=== PATIENT | female | born 1985 | race Caucasian/White ===

== ENCOUNTER 2020-10-12 09:22 | Emergency (ER) | payer OTHER, SELFPAY ==
--- NOTE | 2020-10-12 09:30 | ED.ABDPAIN ---
HPI - Abdominal Pain General Chief Complaint: Urogenital-Female <Isael Deras NP - Last Filed: 10/12/20 12:28> Stated Complaint: ABD PAIN <Isael Deras NP - Last Filed: 10/12/20 12:28> Time Seen by Provider: 10/12/20 09:27 <Isael Deras NP - Last Filed: 10/12/20 12:28> Source: patient <Isael Deras NP - Last Filed: 10/12/20 12:28> Mode of arrival: ambulatory <Isael Deras NP - Last Filed: 10/12/20 12:28> Limitations: no limitations <Isael Deras NP - Last Filed: 10/12/20 12:28> History of Present Illness HPI narrative: 34-year-old female with history of asthma who is G3 P to a 1 status post 2 spontaneous vaginal deliveries and status post tubal ligation otherwise denies any other significant medical problem not currently taking any medications presenting ambulatory via triage with complaint of ?ovary pain? for the past 2 weeks. States as been present on and off and being described as sharp and sometimes cramping like in the right-sided pelvic and sometimes the left lower pelvic region. She denies any irregular bleeding, dysuria, vaginal discharge. No rash or lesion. Denies any concern for STI. Does report that pain sometimes radiates to the right upper quadrant and right flank area. There is no associated nausea vomiting or diarrhea. No recent travel or sick contacts. No URI symptoms. <Isael Deras NP - Last Filed: 10/12/20 12:28> MD elicited complaint: abdominal pain <Isael Deras NP - Last Filed: 10/12/20 12:28> Pertinent past history: none <Isael Deras NP - Last Filed: 10/12/20 12:28> Onset (ago): week(s) <Isael Deras NP - Last Filed: 10/12/20 12:28> Pain Consistency: intermittent <Isael Deras NP - Last Filed: 10/12/20 12:28> Location: pelvis <Isael Deras NP - Last Filed: 10/12/20 12:28> Severity: mild <Isael Deras NP - Last Filed: 10/12/20 12:28> Quality: cramping and aching <Isael Deras NP - Last Filed: 10/12/20 12:28> Radiation: suprapubic and R flank <Isael Deras NP - Last Filed: 10/12/20 12:28> Migration to: R flank <Isael Deras NP - Last Filed: 10/12/20 12:28> Exacerbating factors: nothing <Isael Deras NP - Last Filed: 10/12/20 12:28> Relieving factors: nothing <Isael Deras NP - Last Filed: 10/12/20 12:28> Associated symptoms: denies other symptoms <Isael Deras NP - Last Filed: 10/12/20 12:28> Treatments prior to arrival: other (Has not tried any OTC) <Isael Deras NP - Last Filed: 10/12/20 12:28> Related Data Home Medications: Previous Rx's Medication Instructions Recorded naproxen [Naprosyn] 500 mg PO BID PRN #14 tab 10/12/20 <Isael Deras NP - Last Filed: 10/12/20 12:28> Allergies/Adverse Reactions: Allergies Allergy/AdvReac Type Severity Reaction Status Date / Time No Known Allergies Allergy Unverified 08/12/20 15:43 <Isael Deras NP - Last Filed: 10/12/20 12:28> Review of Systems Review of Systems Constitutional: No Weight loss, No Fever, No Chills, No Night Sweats, No Fatigue, No Malaise ENT/Mouth: No Hearing loss, No Ear Pain, No Nasal Congestion, No Sinus Pain, No Hoarseness, No sore throat, No Rhinorrhea, No Swallowing Difficulty Eyes: No Eye Pain, No Swelling, No Redness, No Foreign Body, No Discharge, No Vision Changes Cardiovascular: No Chest Pain, No SOB, No Dyspnea on Exertion, No Orthopnea, No Edema, No Palpitations Respiratory: No Cough, No Sputum, No Wheezing, No Dyspnea Gastrointestinal: No Nausea, No Vomiting, No Diarrhea, No Constipation, +pelvic pain as note din HPI , No Hematochezia, No Melena Genitourinary: no irregular bleeding, No Dysuria, No Urinary Frequency, No Hematuria, No Urinary Incontinence, No Urgency, No Flank Pain, No Urinary Flow Changes, No Hesitancy Musculoskeletal: No joint pain, No Myalgias, No Joint Swelling Skin: No Skin Lesions, No rash Neuro: No Weakness, No Numbness, No Paresthesias, No Loss of Consciousness, No Dizziness, No Headache Psych: No Social Issues Heme/Lymph: No Bruising, No Bleeding,No Lymphadenopathy Endocrine: No Polyuria, No Polydipsia, No Temperature Intolerance <Isael Deras NP - Last Filed: 10/12/20 12:28> Yes all other systems are reviewed and are negative <Isael Deras NP - Last Filed: 10/12/20 12:28> Physical Exam Vital Signs: Vital Signs: Last Vital Signs Temp 98 F 10/12/20 12:00 Pulse 79 10/12/20 12:00 Resp 18 10/12/20 12:00 BP 140/81 H 10/12/20 12:00 Pulse Ox 96 10/12/20 12:00 Body Mass Index 28.5 Reviewed <Isael Deras NP - Last Filed: 10/12/20 12:28> Vital Signs: Last Vital Signs Temp 98 F 10/12/20 12:00 Pulse 79 10/12/20 12:00 Resp 18 10/12/20 12:00 BP 140/81 H 10/12/20 12:00 Pulse Ox 96 10/12/20 12:00 Body Mass Index 28.5 <Xander Noland MD - Last Filed: 10/18/20 15:43> Const: General: cooperative and healthy appearing; No acute distress or intoxicated appearing <Isael Deras NP - Last Filed: 10/12/20 12:28> Nutritional Appearance: average body habitus <Isael Deras NP - Last Filed: 10/12/20 12:28> Orientation/consciousness: patient oriented x3 <Isael Deras NP - Last Filed: 10/12/20 12:28> HENMT: Head: Yes normal to inspection <Isael Deras NP - Last Filed: 10/12/20 12:28> Ears: hearing grossly normal bilaterally <sIael Deras NP - Last Filed: 10/12/20 12:28> Eyes: General: appearance normal, both eyes and all related structures <Isael Deras, TUBER MACHINE OPERATOR HELPER - Last Filed: 10/12/20 12:28> Visual Mantilla: normal visual mantilla by confrontation <Isael Deras TUBER MACHINE OPERATOR HELPER - Last Filed: 10/12/20 12:28> Chest: Chest palpation & inspection: normal inspection of the chest <Isael Deras TUBER MACHINE OPERATOR HELPER - Last Filed: 10/12/20 12:28> Resp: Effort & Inspection: normal respiratory effort <Isael Augusta TUBER MACHINE OPERATOR HELPER - Last Filed: 10/12/20 12:28> Cardio: Jugular venous distension: no JVD <Isael Deras TUBER MACHINE OPERATOR HELPER - Last Filed: 10/12/20 12:28> GI: Other: slight ttp over the suprapubic area, no rebound, no peritonitis, no cva ttp. <Isael Augusta TUBER MACHINE OPERATOR HELPER - Last Filed: 10/12/20 12:28> Inspection: Yes normal to inspection <Isael Augusta TUBER MACHINE OPERATOR HELPER - Last Filed: 10/12/20 12:28> Percussion: Yes normal to percussion <Isael Augusta TUBER MACHINE OPERATOR HELPER - Last Filed: 10/12/20 12:28> Auscultation: normal bowel sounds <Isael Deras TUBER MACHINE OPERATOR HELPER - Last Filed: 10/12/20 12:28> : Other: Declined pelvic exam. States no abnormality in voids, discharge, red lesion, concern for STI. <Isael Deras TUBER MACHINE OPERATOR HELPER - Last Filed: 10/12/20 12:28> General: Yes no CVA tenderness <Isael Augusta TUBER MACHINE OPERATOR HELPER - Last Filed: 10/12/20 12:28> Back/Spine/Pelvis: Back: no CVA tenderness <Isael Augusta TUBER MACHINE OPERATOR HELPER - Last Filed: 10/12/20 12:28> Skin: General skin exam: no rashes or lesions noted <Isael Augusta TUBER MACHINE OPERATOR HELPER - Last Filed: 10/12/20 12:28> Neuro: General: patient oriented x3 <Isael MathisSHANIQUE armando - Last Filed: 10/12/20 12:28> Extrem: General: Yes normal to inspection <Isael Augusta TUBER MACHINE OPERATOR HELPER - Last Filed: 10/12/20 12:28> Course Course Course Narrative: I have discussed the case and management with the FANI <Xander Noland MD - Last Filed: 10/18/20 15:43> Reevaluation(s) Reevaluation #1: Call from rad Dept with US prelim from .. Right ovary though appears normal there is no vascular flow detected on ultrasound. Page placed to learning and development consultant services. Patient resting comfortably. <Isael Deras NP - Last Filed: 10/12/20 12:28> Reevaluation #2: [address] Hammond Images reviewed less likely pain gynecological etiology to explore other causes her pain i.e. abd. Aware CT abd / pelvic ordered Pt currently resting comfortably in NAD> on her cell phone. Findings / plan reviewed <Isael Deras NP - Last Filed: 10/12/20 12:28> Reevaluation #3: CT of the abdomen pelvic shows no acute Findings of the abdomen or pelvis. No inflammatory change. Prominent appearance of the pelvic veins. No obstruction. Appendix normal. No free air. No colonic wall thickening. Case again discussed with learning and development consultant Dr. Hammond, pt at this time nop to pain, resting comfortably on cell phone. rec not c/w torsion to d/c with clear precautions and f/u for follow us. Findings reviewed with pt in detail, she verbalizes understanding and comfortable with plan. Her repeat abdominal exam is benign. Tender palpation or peritonitis. <Isael Deras NP - Last Filed: 10/12/20 12:28> Consultations Consultation #1: [facility] <Isael Deras NP - Last Filed: 10/12/20 12:28> Consultation #2: OBGYN <Isael eDras NP - Last Filed: 10/12/20 12:28> MDM - Abdominal Pain Differential Diagnosis Differential diagnosis: Likely abdominal pain, acute appendicitis, calculus of kidney, ovarian cyst and renal colic; Unlikely aortic dissection, bowel perforation, constipation, diverticulitis, endometriosis, gastroenteritis, gastritis, mesenteric ischemia, pancreatitis, peptic ulcer disease and small bowel obstruction <Isael Deras NP - Last Filed: 10/12/20 12:28> Medical Records Attestation: I reviewed the patient's medical records. <Isael Deras NP - Last Filed: 10/12/20 12:28> Lab Data Attestation: I reviewed the patient's lab results. <Isael Deras NP - Last Filed: 10/12/20 12:28> Result diagrams: : 10/12/20 09:48 10/12/20 09:48 <Isael Deras NP - Last Filed: 10/12/20 12:28> Labs: Lab Results 10/12/20 10/12/20 10/12/20 Range/Units 09:45 09:48 09:48 WBC 7.7 (4.8-10.8) X10*3/uL RBC 4.43 (4.20-5.50) X10*6/uL Hgb 14.0 (12.0-16.0) g/dl Hct 42.8 (37-47) % MCV 96.6 (80-98) fL MCH 31.6 (27.0-33.0) pg MCHC 32.7 (31.0-35.0) g/dl RDW 12.9 (11.0-16.0) % Plt Count 189 (160-400) X10*3/uL MPV 11.2 (9.4-12.3) fL Immature Gran % (Auto) 0.3 (0.0-0.4) % Neut % (Auto) 62.0 (45-73) % Lymph % (Auto) 29.4 (20-40) % [place] % (Auto) 6.5 (2-11) % Eos % (Auto) 1.4 (0-4) % Baso % (Auto) 0.4 (0-2) % Lymph # (Auto) 2.3 (1.2-4.9) X10*3/uL [place] # (Auto) 0.5 (0.1-1.2) X10*3/uL Eos # (Auto) 0.1 (0.0-0.4) X10*3/uL Baso # (Auto) 0.0 (0.0-0.2) X10*3/uL Abs Immat Gran (auto) 0.02 (0.00-0.03) X10*3/uL Absolute Neuts (auto) 4.8 (2.0-8.3) X10*3/uL Absolute Nucleated RBC 0.000 (0.0-0.012) X10*3/uL Nucleated RBC % (auto) 0.0 (0.0-0.2) /100WBC Sodium 139 (135-145) mmol/L Potassium 4.4 (3.3-5.1) mmol/l Chloride 106 (96-108) mmol/L Carbon Dioxide 27 (22-29) mmol/L Anion Gap 10 L (12-20) BUN 12 (9-16) mg/dL Creatinine 0.85 (0.5-1.4) mg/dL Estim Creat Clear Calc 83.3 Estimated GFR > 60 Random Glucose 95 (60-115) mg/dL Calcium 8.9 (8.4-10.2) mg/dL Total Bilirubin 0.5 (0.0-1.0) mg/dL AST 19 (5-31) U/L ALT 16 (0-31) U/L Alkaline Phosphatase 47 (39-117) U/L Total Protein 7.4 (6.5-8.0) g/dL Albumin 4.4 (3.5-5.0) g/dL Urine Color YELLOW Urine Appearance HAZY Urine pH 7.0 (5.0-8.0) Ur Specific [place] 1.020 (1.005-1.025) Urine Protein NEG (NEG-TRACE) MG/DL Urine Glucose (UA) NEG (NEG) MG/DL Urine Ketones NEG (NEG) MG/DL Urine Blood NEG (NEG) Urine Nitrite NEG (NEG) Ur Leukocyte Esterase NEG (NEG) Urine RBC 0 (0) /HPF Urine WBC 0 (0-4) /HPF Ur Squamous Epith Cells 3+ /LPF Urine Bacteria 1+ /LPF Urine Mucus 1+ /LPF Urine Test NEGATIVE (NEGATIVE) <Isael Deras NP - Last Filed: 10/12/20 12:28> Lab Results 10/12/20 10/12/20 10/12/20 Range/Units 09:45 09:48 09:48 WBC 7.7 (4.8-10.8) X10*3/uL RBC 4.43 (4.20-5.50) X10*6/uL Hgb 14.0 (12.0-16.0) g/dl Hct 42.8 (37-47) % MCV 96.6 (80-98) fL MCH 31.6 (27.0-33.0) pg MCHC 32.7 (31.0-35.0) g/dl RDW 12.9 (11.0-16.0) % Plt Count 189 (160-400) X10*3/uL MPV 11.2 (9.4-12.3) fL Immature Gran % (Auto) 0.3 (0.0-0.4) % Neut % (Auto) 62.0 (45-73) % Lymph % (Auto) 29.4 (20-40) % [place] % (Auto) 6.5 (2-11) % Eos % (Auto) 1.4 (0-4) % Baso % (Auto) 0.4 (0-2) % Lymph # (Auto) 2.3 (1.2-4.9) X10*3/uL [place] # (Auto) 0.5 (0.1-1.2) X10*3/uL Eos # (Auto) 0.1 (0.0-0.4) X10*3/uL Baso # (Auto) 0.0 (0.0-0.2) X10*3/uL Abs Immat Gran (auto) 0.02 (0.00-0.03) X10*3/uL Absolute Neuts (auto) 4.8 (2.0-8.3) X10*3/uL Absolute Nucleated RBC 0.000 (0.0-0.012) X10*3/uL Nucleated RBC % (auto) 0.0 (0.0-0.2) /100WBC Sodium 139 (135-145) mmol/L Potassium 4.4 (3.3-5.1) mmol/l Chloride 106 (96-108) mmol/L Carbon Dioxide 27 (22-29) mmol/L Anion Gap 10 L (12-20) BUN 12 (9-16) mg/dL Creatinine 0.85 (0.5-1.4) mg/dL Estim Creat Clear Calc 83.3 Estimated GFR > 60 Random Glucose 95 (60-115) mg/dL Calcium 8.9 (8.4-10.2) mg/dL Total Bilirubin 0.5 (0.0-1.0) mg/dL AST 19 (5-31) U/L ALT 16 (0-31) U/L Alkaline Phosphatase 47 (39-117) U/L Total Protein 7.4 (6.5-8.0) g/dL Albumin 4.4 (3.5-5.0) g/dL Urine Color YELLOW Urine Appearance HAZY Urine pH 7.0 (5.0-8.0) Ur Specific [place] 1.020 (1.005-1.025) Urine Protein NEG (NEG-TRACE) MG/DL Urine Glucose (UA) NEG (NEG) MG/DL Urine Ketones NEG (NEG) MG/DL Urine Blood NEG (NEG) Urine Nitrite NEG (NEG) Ur Leukocyte Esterase NEG (NEG) Urine RBC 0 (0) /HPF Urine WBC 0 (0-4) /HPF Ur Squamous Epith Cells 3+ /LPF Urine Bacteria 1+ /LPF Urine Mucus 1+ /LPF Urine Test NEGATIVE (NEGATIVE) <Xander Noland MD - Last Filed: 10/18/20 15:43> Discharge Plan Discharge Clinical Impression: Lower abdominal pain <Isael Deras NP - Last Filed: 10/12/20 12:28> Patient Disposition: Home, Self-Care <Isael Deras NP - Last Filed: 10/12/20 12:28> Instructions: Acute Abdominal Pain (ED) <Isael Deras NP - Last Filed: 10/12/20 12:28> Additional Instructions: Was overall stable Urine test did not show any evidence of infection or You have history of tubal ligation my concern for is low The ultrasound of the pelvis results as provided to you and discuss with you show some variation in the blood flow to the right ovary which is sometimes seen and an ovary that is torsed (twisted on his self) although I do not suspect this given that you have no pain at this time and I would see other signs of this. Although this is certainly a possibility I have discussed this with our learning and development consultant doctor Dr. Hammond - who recommends a follow-up ultrasound in 1 week. Additionally you had a CT scan of the abdomen pelvis done with IV contrast does not show any signs of infection/obstruction or any problems with the appendix. Please return if you have any concerns or worsening pain, back pain, vaginal bleeding, fever, nausea vomiting or diarrhea. Otherwise follow-up as instructed Thank you <Isael Deras NP - Last Filed: 10/12/20 12:28> Prescriptions: New naproxen [Naprosyn] 500 mg tablet 500 mg PO BID PRN (Reason: pain) Qty: 14 RF: 0 <Isael Deras NP - Last Filed: 10/12/20 12:28> Referrals: Teodora Hammond MD [Physician] - 1 week <Isael Deras NP - Last Filed: 10/12/20 12:28> Interventions: ED Discharge Assessment Last Done: 10/12/20 12:29 <Isael Deras NP - Last Filed: 10/12/20 12:28> Discharge Date/Time: 10/12/20 12:29 <Isael Deras NP - Last Filed: 10/12/20 12:28> PMF Past Medical History Medical History: Medical History (Updated 10/13/20 @ 00:00 by Annelise Valencia) Asthma No known health problems <Isael Deras NP - Last Filed: 10/12/20 12:28> Surgical History: Surgical History (Updated 10/12/20 @ 09:42 by Isael Deras NP) H/O tubal ligation <Isael Deras NP - Last Filed: 10/12/20 12:28> Social History Social History: Social History Advance Directives: No Advance Directives Information Provided: Yes <Isael Deras NP - Last Filed: 10/12/20 12:28>
--- NOTE | 2020-10-12 09:32 | US_ITS ---
EXAMINATION: ULTRASOUND OF THE PELVIS CLINICAL INFORMATION: Pelvic pain, right side greater than left side. COMPARISON: CT 01/11/2018. TECHNIQUE: Transabdominal and transvaginal pelvic ultrasound. Doppler evaluation with spectral analysis was performed. A transvaginal study was performed in addition to the transabdominal study which did not yield an adequate examination of the uterus and ovaries due to superimposed distended gas-filled loops of bowel. FINDINGS: The uterus is normal in size and appearance, measuring 8.4 x 4.6 x 5.3 cm longitudinally, anteroposteriorly and transversely. The endometrial stripe thickness is normal, measuring 0.9 cm in thickness. No focal myometrial mass is seen. Nabothian cysts are seen at the cervix. The ovaries bilaterally are visualized and appear normal, with the right ovary measuring 3.2 x 2.1 x 1.4 cm and the left ovary measuring 2.6 x 2.1 x 1.9 cm. There are normal arterial and venous spectral waveforms of the left ovary. There is no Doppler flow seen involving the right ovary despite multiple attempts. No adnexal mass or free fluid collection seen. US/US pelvic ovarian doppler IMPRESSION: There is no Doppler flow seen involving the right ovary, despite multiple attempts at obtaining. The ovary itself has a normal appearance. As there is no Doppler flow seen, ovarian torsion must be considered. This critical result was discussed with Isael Deras NP by telephone at 10/12/2020 10:31 AM and it was ascertained that the content and urgency of the report was understood at the time of direct communication.
[2020-10-12 09:34] VITALS: BP 114/71; PULSE 59; RESP 20; TEMP 36.8; O2SAT 100; BMI 28.5
[2020-10-12 09:57] LABS: MANUAL DIFF FLAG NO
[2020-10-12 10:00] VITALS: BP 120/70; PULSE 62; RESP 18; TEMP 36.8; O2SAT 100
[2020-10-12 10:00] LABS: Glucose Urine UA NEG (NEG); Leukocyte Esterase Urine NEG (NEG); Nitrite Urine NEG (NEG); Urine Blood NEG (NEG); Urine Ketones NEG (NEG); Urine Protein NEG (NEG-TRACE)
[2020-10-12 10:02] LABS: Appearance Urine HAZY; Color Urine YELLOW
[2020-10-12 10:03] LABS: UPreg QC Valid YES; Urine Pregnancy NEGATIVE (NEGATIVE)
[2020-10-12 10:07] LABS: Basophils Percent Auto 0.4 % (0-2); Eosinophils Absolute Auto 0.1 X10*3/uL (0.0-0.4); Eosinophils Percent Auto 1.4 % (0-4); Hematocrit 42.8 % (37-47); Imm Gran Abs Auto 0.02 X10*3/uL (0.00-0.03); Imm Gran Pct Auto 0.3 % (0.0-0.4); Lymphocytes Absolute Auto 2.3 X10*3/uL (1.2-4.9); Lymphocytes Percent Auto 29.4 % (20-40); Mean Corpuscular HGB Conc 32.7 g/dl (31.0-35.0); Mean Corpuscular Hemoglobin 31.6 pg (27.0-33.0); Mean Corpuscular Volume 96.6 fL (80-98); Mean Platelet Volume 11.2 fL (9.4-12.3); Monocytes Absolute Auto 0.5 X10*3/uL (0.1-1.2); Monocytes Percent Auto 6.5 % (2-11); Neutrophils Absolute Auto 4.8 X10*3/uL (2.0-8.3); Platelet Count 189 X10*3/uL (160-400); Red Blood Count 4.43 X10*6/uL (4.20-5.50); Red Cell Distribution Width 12.9 % (11.0-16.0); White Blood Count 7.7 X10*3/uL (4.8-10.8)
[2020-10-12 10:14] LABS: RBC Urine 0 /HPF (0); WBC Urine 0 /HPF (0-4)
[2020-10-12 10:15] LABS: Bacteria Urine 1+ /LPF; Mucus Urine 1+ /LPF; Squamous Epithelial Cell Urine 3+ /LPF
--- NOTE | 2020-10-12 10:15 | CT_ITS ---
EXAMINATION: CT ABDOMEN AND PELVIS WITH CONTRAST CLINICAL INFORMATION: Right lower abdominal pain. COMPARISON: 01/11/2018 TECHNIQUE: Multidetector volumetric images were obtained from the superior aspect of the liver through the pubic symphysis following administration 85 mL of Omnipaque 350 intravenous contrast. Sagittal and coronal reformatted images were obtained on the technologist's workstation. Oral contrast: No This CT examination was performed using dose optimization techniques as appropriate, variously including the following: *Automated exposure control *Adjustment of mA and/or kV according to patient size (this includes techniques or standardized protocols for targeted exams where dose is matched to indication/reason for exam; i.e. extremities or head) *Use of iterative reconstruction technique DLP: 474 mGy-cm FINDINGS: LUNG BASES: The visualized lung bases are unremarkable. LIVER, GALLBLADDER, AND BILIARY TREE: The liver is normal in size, shape, and attenuation. No focal hepatic lesion or biliary ductal dilatation is present. The gallbladder is unremarkable with no evidence of radiopaque gallstones, gallbladder wall thickening, or obvious pericholecystic inflammatory changes. PANCREAS: Unremarkable. SPLEEN: Unremarkable. ADRENAL GLANDS: Unremarkable. KIDNEYS AND URETERS: The kidneys are normal in size, shape, and attenuation. No hydronephrosis, hydroureter, or calculi seen. No perinephric stranding. BLADDER: Unremarkable. GASTROINTESTINAL TRACT: The stomach is unremarkable. Normal caliber small bowel. There is no obstruction. No colonic wall thickening or inflammatory change. Normal appendix. No free air or free fluid. ABDOMINAL WALL: No significant hernia is appreciated. LYMPH NODES: Normal. VASCULAR: Normal caliber aorta. There is prominence of the pelvic veins bilaterally noted. PELVIC VISCERA: The uterus and adnexa are unremarkable. OSSEOUS STRUCTURES: No acute or suspicious osseous abnormality. CT/CT abdomen pelvis w con IMPRESSION: No acute findings of the abdomen or pelvis. No inflammatory changes. Prominent appearance of the pelvic veins. Correlate for pelvic congestion.
[2020-10-12 10:35] LABS: Alanine Aminotransferase 16 U/L (0-31); Albumin Level 4.4 g/dL (3.5-5.0); Alkaline Phosphatase 47 U/L (39-117); Anion Gap 10 (12-20); Aspartate Amino Transferase 19 U/L (5-31); Bilirubin Total 0.5 mg/dL (0.0-1.0); Blood Urea Nitrogen 12 mg/dL (9-16); Calcium 8.9 mg/dL (8.4-10.2); Carbon Dioxide 27 mmol/L (22-29); Chloride 106 mmol/L (96-108); Creatinine Clr Calc Pharmacy 83.3; Estimated Glomerular Filt Rate > 60; Glucose Random 95 mg/dL (60-115); Potassium 4.4 mmol/l (3.3-5.1); Sodium 139 mmol/L (135-145); Total Protein 7.4 g/dL (6.5-8.0)
[2020-10-12] MEDS: 0.9 % Sodium Chloride 1,000 ML 1000 ML IV (10:36)
--- NOTE | 2020-10-12 11:06 | PC.NURSE ---
returned from ultrasound, waiting for ct scan
[2020-10-12 12:00] VITALS: BP 140/81; PULSE 79; RESP 18; TEMP 36.6; O2SAT 96
== END 2020-10-12 12:29 | disposition home or self-care (01) ==
PROVIDERS: Nurse Practitioner Primary Care; Emergency Provider Emergency Medicine
DX: R10.2 Pelvic and perineal pain (principal); R10.11 Right upper quadrant pain; N89.8 Other specified noninflammatory disorders of vagina
CPT/HCPCS: 36415; 74177; 76830; 76856; 80053; 81001; 81025; 85025; 87086; 93975; 96360; 99284

== ENCOUNTER 2020-11-09 14:42 | Outpatient (REF) | payer OTHER, SELFPAY | END 2020-11-09 14:43 | disposition home or self-care (01) | LOC: HO.LAB 14:42 | PROVIDERS: Visit Provider Internal Medicine | DX: Z20.828 Contact with and (suspected) exposure to other viral communicable diseases (principal) | CPT/HCPCS: C9803; U0003 ==

== ENCOUNTER 2020-11-15 07:37 | Outpatient (REF) | payer OTHER, SELFPAY | END 2020-11-15 07:38 | disposition home or self-care (01) | LOC: HO.LAB 07:37 | PROVIDERS: Visit Provider Internal Medicine | DX: Z20.828 Contact with and (suspected) exposure to other viral communicable diseases (principal) | CPT/HCPCS: C9803; U0003 ==

== ENCOUNTER 2020-11-22 09:34 | Outpatient (REF) | payer OTHER, SELFPAY | END 2020-11-22 09:35 | disposition home or self-care (01) | LOC: HO.LAB 09:34 | PROVIDERS: Visit Provider Internal Medicine | DX: Z20.828 Contact with and (suspected) exposure to other viral communicable diseases (principal) | CPT/HCPCS: C9803; U0003 ==

== ENCOUNTER 2020-12-07 11:53 | Outpatient (REF) | payer OTHER, SELFPAY | END 2020-12-07 11:54 | disposition home or self-care (01) | LOC: HO.LAB 11:53 | PROVIDERS: Visit Provider Internal Medicine | DX: Z20.822 Contact with and (suspected) exposure to COVID-19 (principal) | CPT/HCPCS: 36415; C9803; U0003 ==

== ENCOUNTER 2021-01-24 10:45 | Emergency (ER) | payer OTHER, SELFPAY ==
--- NOTE | ~2021-01-24 | XR_ITS ---
EXAMINATION: XR CHEST CLINICAL INFORMATION: Cough COMPARISON: Previous chest x-ray September 2019 TECHNIQUE: Frontal view of the chest was obtained. FINDINGS: No significant abnormality is noted involving the heart, lungs, mediastinum, bony thorax or soft tissues. XR/XR chest 1V IMPRESSION: Unremarkable examination.
[2021-01-24 11:45] VITALS: BP 118/63; PULSE 97; RESP 18; TEMP 36.8; O2SAT 98; BMI 28.3
--- NOTE | 2021-01-24 12:01 | ED.GENADULT ---
HPI - General Adult General Chief complaint: General Medical Stated complaint: vomiting,dizzy,cough Time Seen by Provider: 01/24/21 11:58 History of Present Illness HPI narrative: Patient complains of vomiting and nausea for 2 days as well as a mild cough which is been going on for 2 weeks, no shortness of breath no abdominal pain no diarrhea no burning with urination no fever no chills The patient is a daily marijuana smoker but has never had an issue with vomiting Related Data Previous Rx's Medication Instructions Recorded naproxen [Naprosyn] 500 mg PO BID PRN #14 tab 10/12/20 ondansetron HCl [Zofran] 4 mg PO Q6H PRN #10 tab 01/24/21 Allergies Allergy/AdvReac Type Severity Reaction Status Date / Time No Known Allergies Allergy Verified 01/24/21 11:44 Review of Systems Review of Systems: Positive for vomiting and a cough Negatives are there are no fever no chills no dizziness no weakness no headache no sore throat no neck pain no chest pain no shortness of breath no sputum no loss of taste or smell, no abdominal pain no diarrhea no burning with urination or urinary frequency no rash no numbness or weakness PMFSH Past Medical History Source: nursing notes reviewed Medical History (Updated 01/24/21 @ 17:07 by SANCHEZ Naidu) Asthma No known health problems Surgical History H/O tubal ligation Social History Social History Advance Directives: No Advance Directives Information Provided: No Physical Exam Vital Signs: Vital Signs: Last Vital Signs Temp 98.8 F 01/24/21 15:20 Pulse 96 01/24/21 15:20 Resp 18 01/24/21 15:20 BP 126/86 01/24/21 15:20 Pulse Ox 98 01/24/21 15:20 Body Mass Index 28.3 General appearance no acute distress, relaxed and cooperative A&O x3 The pharynx is clear with moist mucous membranes Neck is supple The chest is clear to auscultation bilaterally with full symmetric equal breath sounds Heart rate and rhythm regular no murmur Abdomen soft nontender Extremities no edema no rash Neuro no focal deficit Course Course Course Narrative: COVID testing was negative, was negative Patient did not respond to oral Zofran, so patient was hydrated and given Reglan with good result and patient was tolerating p.o., repeat abdominal exam is nontender and p.o. trial was successful with no vomiting and patient was discharged She was counseled that there is a possibility that if this recurs it may be from hyperemesis from marijuana Medical Decision Making Lab Data Lab results reviewed: Yes I reviewed the patient's lab results. Result diagrams: 01/24/21 15:01 01/24/21 15:01 Labs: Lab Results 01/24/21 01/24/21 01/24/21 Range/Units 13:03 14:29 14:29 WBC (4.8-10.8) X10*3/uL RBC (4.20-5.50) X10*6/uL Hgb (12.0-16.0) g/dl Hct (37-47) % MCV (80-98) fL MCH (27.0-33.0) pg MCHC (31.0-35.0) g/dl RDW (11.0-16.0) % Plt Count (160-400) X10*3/uL MPV (9.4-12.3) fL Immature Gran % (Auto) (0.0-0.4) % Neut % (Auto) (45-73) % Lymph % (Auto) (20-40) % [place] % (Auto) (2-11) % Eos % (Auto) (0-4) % Baso % (Auto) (0-2) % Lymph # (Auto) (1.2-4.9) X10*3/uL [place] # (Auto) (0.1-1.2) X10*3/uL Eos # (Auto) (0.0-0.4) X10*3/uL Baso # (Auto) (0.0-0.2) X10*3/uL Abs Immat Gran (auto) (0.00-0.03) X10*3/uL Absolute Neuts (auto) (2.0-8.3) X10*3/uL Absolute Nucleated RBC (0.0-0.012) X10*3/uL Nucleated RBC % (auto) (0.0-0.2) /100WBC Sodium (135-145) mmol/L Potassium (3.3-5.1) mmol/L Chloride (96-108) mmol/L Carbon Dioxide (22-29) mmol/L Anion Gap (12-20) BUN (9-16) mg/dL Creatinine (0.5-1.4) mg/dL Estim Creat Clear Calc Estimated GFR Random Glucose (60-115) mg/dL Calcium (8.4-10.2) mg/dL Total Bilirubin (0.0-1.0) mg/dL Direct Bilirubin (0.0-0.5) mg/dL AST (5-31) U/L ALT (0-31) U/L Alkaline Phosphatase (39-117) U/L Total Protein (6.5-8.0) g/dL Albumin (3.5-5.0) g/dL Urine Color YELLOW Urine Appearance HAZY Urine pH 8.0 (5.0-8.0) Ur Specific [place] 1.015 (1.005-1.025) Urine Protein NEG (NEG-TRACE) MG/DL Urine Glucose (UA) NEG (NEG) MG/DL Urine Ketones NEG (NEG) MG/DL Urine Blood NEG (NEG) Urine Nitrite NEG (NEG) Ur Leukocyte Esterase NEG (NEG) Urine Test NEGATIVE (NEGATIVE) COVID-19 (KATELYN) Negative (Negative) COVID-19 Clin Com See Note 01/24/21 01/24/21 Range/Units 15:01 15:01 WBC 12.7 H (4.8-10.8) X10*3/uL RBC 4.32 (4.20-5.50) X10*6/uL Hgb 13.7 (12.0-16.0) g/dl Hct 40.9 (37-47) % MCV 94.7 (80-98) fL MCH 31.7 (27.0-33.0) pg MCHC 33.5 (31.0-35.0) g/dl RDW 13.4 (11.0-16.0) % Plt Count 226 (160-400) X10*3/uL MPV 10.8 (9.4-12.3) fL Immature Gran % (Auto) 0.6 H (0.0-0.4) % Neut % (Auto) 81.4 H (45-73) % Lymph % (Auto) 14.3 L (20-40) % [place] % (Auto) 3.0 (2-11) % Eos % (Auto) 0.1 (0-4) % Baso % (Auto) 0.6 (0-2) % Lymph # (Auto) 1.8 (1.2-4.9) X10*3/uL [place] # (Auto) 0.4 (0.1-1.2) X10*3/uL Eos # (Auto) 0.0 (0.0-0.4) X10*3/uL Baso # (Auto) 0.1 (0.0-0.2) X10*3/uL Abs Immat Gran (auto) 0.07 H (0.00-0.03) X10*3/uL Absolute Neuts (auto) 10.4 H (2.0-8.3) X10*3/uL Absolute Nucleated RBC 0.000 (0.0-0.012) X10*3/uL Nucleated RBC % (auto) 0.0 (0.0-0.2) /100WBC Sodium 137 (135-145) mmol/L Potassium 4.3 (3.3-5.1) mmol/L Chloride 104 (96-108) mmol/L Carbon Dioxide 22 (22-29) mmol/L Anion Gap 15 (12-20) BUN 11 (9-16) mg/dL Creatinine 0.80 (0.5-1.4) mg/dL Estim Creat Clear Calc 83.8 Estimated GFR > 60 Random Glucose 76 (60-115) mg/dL Calcium 8.2 L D (8.4-10.2) mg/dL Total Bilirubin 0.5 (0.0-1.0) mg/dL Direct Bilirubin 0.2 (0.0-0.5) mg/dL AST 21 (5-31) U/L ALT 16 (0-31) U/L Alkaline Phosphatase 57 D (39-117) U/L Total Protein 7.6 (6.5-8.0) g/dL Albumin 4.3 (3.5-5.0) g/dL Urine Color Urine Appearance Urine pH (5.0-8.0) Ur Specific [place] (1.005-1.025) Urine Protein (NEG-TRACE) MG/DL Urine Glucose (UA) (NEG) MG/DL Urine Ketones (NEG) MG/DL Urine Blood (NEG) Urine Nitrite (NEG) Ur Leukocyte Esterase (NEG) Urine Test (NEGATIVE) COVID-19 (KATELYN) (Negative) COVID-19 Clin Com Discharge Plan Discharge Clinical Impression: Acute viral syndrome Vomiting Qualifiers: Vomiting type: unspecified Vomiting Intractability: non-intractable Nausea presence: with nausea Qualified Code(s): R11.2 - Nausea with vomiting, unspecified Patient Disposition: Home, Self-Care Additional Instructions: Your vomiting may be from food poisoning, or a viral illness It also may be from regular marijuana use as daily marijuana use can sometimes cause cannabis induced vomiting Drink plenty of fluids, use the Zofran if needed Return to ER for uncontrolled vomiting any worse condition or any concerns Upper respiratory symptoms are most likely from a viral illness for the last week, your COVID test was negative Prescriptions: New ondansetron HCl [Zofran] 4 mg tablet 4 mg PO Q6H PRN (Reason: nausea and vomiting) Qty: 10 RF: 0 No Action naproxen [Naprosyn] 500 mg tablet 500 mg PO BID PRN (Reason: pain) Qty: 14 RF: 0 Discharge Date/Time: 01/24/21 17:19
[2021-01-24 13:44] LABS: COVID-19 Test Negative (Negative); IDNOW Serial# 9DD0AD1C
[2021-01-24 14:45] LABS: Appearance Urine HAZY; Color Urine YELLOW; Glucose Urine UA NEG (NEG); Leukocyte Esterase Urine NEG (NEG); Nitrite Urine NEG (NEG); Specific Gravity - Urine 1.015 (1.005-1.025); Urine Blood NEG (NEG); Urine Ketones NEG (NEG); Urine Protein NEG (NEG-TRACE)
[2021-01-24 14:46] LABS: UPreg QC Valid YES; Urine Pregnancy NEGATIVE (NEGATIVE)
[2021-01-24] MEDS: Dextrose 5 % and 0.9 % NaCl 1,000 ML 1000 ML IVCONT (15:09)
[2021-01-24] MEDS: Metoclopramide HCl 10 MG/2 ML VIAL IVPUSH (15:09)
[2021-01-24] MEDS: diphenhydrAMINE HCL 50 MG/ML VIAL 25 MG IVPUSH (15:09)
[2021-01-24 15:16] LABS: MANUAL DIFF FLAG NO
[2021-01-24 15:20] VITALS: BP 126/86; PULSE 96; RESP 18; TEMP 37.1; O2SAT 98
--- NOTE | 2021-01-24 15:20 | PC.NURSE ---
pt lined and labbed, medicated per emar. blood work completed by this RN. Pt has been intermittently throwing up bile. IV line established, fluid running.
[2021-01-24 15:23] LABS: Basophils Absolute Auto 0.1 X10*3/uL (0.0-0.2); Basophils Percent Auto 0.6 % (0-2); Eosinophils Percent Auto 0.1 % (0-4); Hematocrit 40.9 % (37-47); Hemoglobin 13.7 g/dl (12.0-16.0); Imm Gran Abs Auto 0.07 X10*3/uL (0.00-0.03); Imm Gran Pct Auto 0.6 % (0.0-0.4); Lymphocytes Absolute Auto 1.8 X10*3/uL (1.2-4.9); Lymphocytes Percent Auto 14.3 % (20-40); Mean Corpuscular HGB Conc 33.5 g/dl (31.0-35.0); Mean Corpuscular Hemoglobin 31.7 pg (27.0-33.0); Mean Corpuscular Volume 94.7 fL (80-98); Mean Platelet Volume 10.8 fL (9.4-12.3); Monocytes Absolute Auto 0.4 X10*3/uL (0.1-1.2); Neutrophils Absolute Auto 10.4 X10*3/uL (2.0-8.3); Neutrophils Percent Auto 81.4 % (45-73); Platelet Count 226 X10*3/uL (160-400); Red Blood Count 4.32 X10*6/uL (4.20-5.50); Red Cell Distribution Width 13.4 % (11.0-16.0); White Blood Count 12.7 X10*3/uL (4.8-10.8)
[2021-01-24 15:51] LABS: Alanine Aminotransferase 16 U/L (0-31); Albumin Level 4.3 g/dL (3.5-5.0); Alkaline Phosphatase 57 U/L (39-117); Anion Gap 15 (12-20); Aspartate Amino Transferase 21 U/L (5-31); Bilirubin Direct 0.2 mg/dL (0.0-0.5); Bilirubin Total 0.5 mg/dL (0.0-1.0); Blood Urea Nitrogen 11 mg/dL (9-16); Calcium 8.2 mg/dL (8.4-10.2); Carbon Dioxide 22 mmol/L (22-29); Chloride 104 mmol/L (96-108); Creatinine Clr Calc Pharmacy 83.8; Estimated Glomerular Filt Rate > 60; Glucose Random 76 mg/dL (60-115); Potassium 4.3 mmol/L (3.3-5.1); Sodium 137 mmol/L (135-145); Total Protein 7.6 g/dL (6.5-8.0)
--- NOTE | 2021-01-24 16:38 | PC.NURSE ---
iv d/c. patient states she feels better and is ready to go home. provider aware of this
--- NOTE | 2021-01-24 16:50 | PC.NURSE ---
po challenge complete.
== END 2021-01-24 17:19 | disposition home or self-care (01) ==
PROVIDERS: Physician Assistant Medical; Emergency Provider Emergency Medicine
DX: B34.9 Viral infection, unspecified (principal); Z20.822 Contact with and (suspected) exposure to COVID-19; R11.2 Nausea with vomiting, unspecified; F12.90 Cannabis use, unspecified, uncomplicated; J45.909 Unspecified asthma, uncomplicated
CPT/HCPCS: 36415; 71045; 80048; 80076; 81003; 81025; 85025; 87635; 96374; 96375; 99284; J1200; J2765

== ENCOUNTER 2021-02-15 09:06 | Outpatient (REF) | payer OTHER, SELFPAY | END 2021-02-15 09:07 | disposition home or self-care (01) | LOC: HO.LAB 09:06 | PROVIDERS: Visit Provider Internal Medicine | DX: Z20.822 Contact with and (suspected) exposure to COVID-19 (principal) | CPT/HCPCS: 36415; C9803; U0003; U0005 ==

== ENCOUNTER 2021-03-04 11:26 | Outpatient (REF) | payer OTHER, SELFPAY | END 2021-03-04 11:27 | disposition home or self-care (01) | LOC: HO.LAB 11:26 | PROVIDERS: Visit Provider Internal Medicine | DX: Z20.822 Contact with and (suspected) exposure to COVID-19 (principal) | CPT/HCPCS: C9803; U0003; U0005 ==

== ENCOUNTER 2021-03-23 10:05 | Outpatient (REF) | payer OTHER, SELFPAY ==
[2021-03-23 10:59] LABS: MANUAL DIFF FLAG NO
[2021-03-23 11:03] LABS: Basophils Percent Auto 0.4 % (0-2); Eosinophils Percent Auto 0.4 % (0-4); Hematocrit 40.9 % (37-47); Hemoglobin 13.6 g/dl (12.0-16.0); Imm Gran Abs Auto 0.03 X10*3/uL (0.00-0.03); Imm Gran Pct Auto 0.3 % (0.0-0.4); Lymphocytes Absolute Auto 2.1 X10*3/uL (1.2-4.9); Lymphocytes Percent Auto 22.3 % (20-40); Mean Corpuscular HGB Conc 33.3 g/dl (31.0-35.0); Mean Corpuscular Hemoglobin 32.2 pg (27.0-33.0); Mean Corpuscular Volume 96.9 fL (80-98); Mean Platelet Volume 11.5 fL (9.4-12.3); Monocytes Absolute Auto 0.5 X10*3/uL (0.1-1.2); Monocytes Percent Auto 5.4 % (2-11); Neutrophils Absolute Auto 6.8 X10*3/uL (2.0-8.3); Neutrophils Percent Auto 71.2 % (45-73); Platelet Count 175 X10*3/uL (160-400); Red Blood Count 4.22 X10*6/uL (4.20-5.50); Red Cell Distribution Width 13.4 % (11.0-16.0); White Blood Count 9.6 X10*3/uL (4.8-10.8)
[2021-03-23 11:35] LABS: Alanine Aminotransferase 17 U/L (0-31); Albumin Level 4.1 g/dL (3.5-5.0); Alkaline Phosphatase 46 U/L (39-117); Anion Gap 11 (12-20); Aspartate Amino Transferase 16 U/L (5-31); Bilirubin Total 0.5 mg/dL (0.0-1.0); Blood Urea Nitrogen 11 mg/dL (9-16); Calcium 9.2 mg/dL (8.4-10.2); Carbon Dioxide 26 mmol/L (22-29); Chloride 107 mmol/L (96-108); Cholesterol 171 mg/dL; Estimated Glomerular Filt Rate > 60; Glucose Fasting 97 mg/dL (60-99); HDL Cholesterol 51 mg/dL; LDL Cholesterol Calculated 109 mg/dl; Potassium 4.7 mmol/L (3.3-5.1); Sodium 139 mmol/L (135-145); Total Protein 6.9 g/dL (6.5-8.0); Triglycerides 58 mg/dL
[2021-03-23 11:50] LABS: Thyroid Stimulating Hormone 0.34 uIU/mL (0.32-4.0)
== END 2021-03-23 10:06 | disposition home or self-care (01) ==
LOC: HO.LAB 10:05
PROVIDERS: PCP Internal Medicine; Visit Provider Internal Medicine
DX: Z00.00 Encounter for general adult medical examination without abnormal findings (principal); E11.9 Type 2 diabetes mellitus without complications; E03.9 Hypothyroidism, unspecified
CPT/HCPCS: 36415; 80053; 80061; 84443; 85025

== ENCOUNTER 2021-07-12 15:00 | Outpatient (REF) | payer OTHER, SELFPAY | END 2021-07-12 15:01 | disposition home or self-care (01) | LOC: HO.LAB 15:00 | PROVIDERS: Visit Provider Internal Medicine | DX: Z20.822 Contact with and (suspected) exposure to COVID-19 (principal) | CPT/HCPCS: C9803; U0003; U0005 ==

== ENCOUNTER 2021-10-11 14:10 | Outpatient (REF) | payer OTHER, SELFPAY ==
[2021-10-14 02:36] LABS: HPV mRNA E6/E7 rflx Not Detected (Not Detected)
== END 2021-10-11 14:11 | disposition home or self-care (01) ==
LOC: HO.LAB 14:10
PROVIDERS: Visit Provider Obstetrics & Gynecology
DX: Z01.419 Encounter for gynecological examination (general) (routine) without abnormal findings (principal); Z11.51 Encounter for screening for human papillomavirus (HPV)
CPT/HCPCS: 87624; 88142

== ENCOUNTER 2021-10-30 09:55 | Emergency (ER) | payer OTHER, SELFPAY ==
[2021-10-30 11:08] VITALS: BP 147/63; PULSE 70; RESP 18; TEMP 36.9; O2SAT 98; BMI 27.8
[2021-10-30 11:12] LABS: COVID-19 Test Negative (Negative)
--- NOTE | 2021-10-30 13:18 | ED_ITS ---
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 Denies any recent travel or any sick contacts that she is aware of. Denies any measured fevers, dizziness, headaches, neck pain /stiffness, trouble swallowing or breathing, sore throat, chest pain, dyspnea on exertion, orthopnea, palpitations, nausea/ vomiting/ diarrhea, abdominal pain, constipation, dysuria, hematuria, abnormal vaginal discharge, rashes or any other symptoms complaints or concerns at this time. 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 of any sick contact) Associated symptoms: chills, myalgias, rhinorrhea, nasal congestion and cough Treatments prior to arrival: none Related Data Previous Rx's Medication Instructions Recorded albuterol sulfate 90 mcg/actuation 1 inh INHALATION QID PRN #8.5 g 10/30/21 aerosol inhaler azithromycin 250 mg tablet See Rx Instructions .ROUTE 10/30/21 .COMPLEX #6 tab codeine 10 mg-guaifenesin 100 mg/5 5 ml PO Q6H PRN #120 ml 10/30/21 mL oral liquid (Guaifenesin AC) prednisone 20 mg tablet 40 mg PO DAILY 5 Days #10 tab 10/30/21 Allergies Allergy/AdvReac Type Severity Reaction Status Date / Time No Known Allergies Allergy Verified 10/11/21 14:55 Review of Systems Review of Systems: Constitutional : No Weight loss, No Fever, + Chills, No Night Sweats, + Fatigue, + Malaise ENT/Mouth : No Hearing loss, No Ear Pain, + Nasal Congestion, No Sinus Pain, No Hoarseness, No sore throat, + Rhinorrhea, No Swallowing Difficulty Eyes: No Eye Pain, No Swelling, No Redness, No Foreign Body, No Discharge, No Vision Changes Cardiovascular : No Chest Pain, No SOB, No Dyspnea on Exertion, No Orthopnea, No Edema, No Palpitations Respiratory : + Cough, + Sputum, No Wheezing, No Smoke Exposure, No Dyspnea Gastrointestinal : No Nausea, No Vomiting, No Diarrhea, No Constipation, No abdominal Pain, No Hematochezia, No Melena Genitourinary : no irregular bleeding, No Dysuria, No Urinary Frequency, No Hematuria, No Urinary Incontinence, No Urgency, No Flank Pain, No Urinary Flow Changes, No Hesitancy Musculoskeletal : No joint pain, + Myalgias, No Joint Swelling Skin : No Skin Lesions, No rash Neuro : No Weakness, No Numbness, No Paresthesias, No Loss of Consciousness, No Dizziness, No Headache Psych : No Anxiety/Panic, No Depression, No SI/HI/AH/VH, No Social Issues, Heme/Lymph: No Bruising, No Bleeding,No Lymphadenopathy Endocrine : No Polyuria, No Polydipsia, No Temperature Intolerance Yes all other systems are reviewed and are negative [facility] Past Medical History Attestation statement: The following information was validated with the patient. Medical History Asthma No known health problems Surgical History H/O tubal ligation Family History Family History Father No problems noted. Mother Diabetes Thyroid disease High cholesterol High blood pressure Social History Social History Alcohol intake: current Advance Directives: No Advance Directives Information Provided: Yes Physical Exam Vital Signs: Vital Signs: Last Vital Signs Temp 98.4 F 10/30/21 11:08 Pulse 70 10/30/21 11:08 Resp 18 10/30/21 11:08 BP 147/63 H 10/30/21 11:08 Pulse Ox 98 10/30/21 11:08 BMI result Body Mass Index 27.8 vital signs have been reviewed as normal and appeared to be correct. Blood pressure 147/63. Heart rate normal. Respiration rate normal. Temperature normal. Oxygen saturation normal. Appearance: Alert. Oriented X3. No acute distress. Head: Normal external exam. Normocephalic. Atraumatic. Eyes: PERRLA. EOMI. Conjunctiva and sclera normal. Eyelids normal. ENT: EAC normal. TM's Normal. Pharynx normal. Uvula midline. Moist mucous membranes. No trismus noted. No drooling noted. No muffled voice noted. Neck: Normal inspection. Neck supple. FROM. No adenopathy. Thyroid Normal. No meningeal signs. No neck mass noted. CVS: Normal heart rate and rhythm. Heart sound normal. Pulses normal throughout. No murmurs/rales/gallops. Respiratory: No respiratory distress. Painless inspiration. Breath sounds normal. No wheezes/rales/rhonchi noted. Chest nontender. No accessory muscle usage noted or decreased air movement noted. Back: Full range of motion noted. No rashes/lesion/induration/fluctuance or signs of infection noted. Skin: Skin warm and dry. Normal skin color. Normal skin turgor. No rashes/lesions/lacerations noted. Extremities: Extremities exhibit normal range of motion. Extremities nontender. Neuro: Oriented X 3. No motor deficit. No sensory deficit. Reflexes normal. Normal steady gait. No focal neuro deficits noted. 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 She denies any other symptoms. She is actually to COVID. She is negative for COVID at this time. I did offer the PCR COVID/RSV /flu to evaluate for possible flu patient refused. Therefore at this time will DC home with antibiotics for possible bronchitis and instructions to return if any new or worsening symptoms to self isolate until symptoms improved and to follow-up with primary care provider. Patient understands agrees with this plan. MDM - URI/Sore Throat Medical Records Attestation: I reviewed the patient's medical records. Lab Data Attestation: I reviewed the patient's lab results. Labs: Lab Results 10/30/21 Range/Units 10:50 COVID-19 (KATELYN) Negative (Negative) COVID-19 Clin Com See Note Discharge Plan Discharge Clinical Impression: Bronchitis Patient Disposition: Home, Self-Care Instructions: Acute Bronchitis (ED) Additional Instructions: You were negative for COVID today although if you continue to have symptoms you should be retested in the next few days. Return if any new or worsening symptoms follow up with her primary care provider. Prescriptions: New albuterol sulfate 90 mcg/actuation HFA aerosol inhaler 1 inh inhalation QID PRN (Reason: shortness of breath or wheezing) Qty: 8.5 RF: 0 azithromycin 250 mg tablet See Rx Instructions .ROUTE .COMPLEX Qty: 6 RF: 0 codeine-guaifenesin [Guaifenesin AC] 10-100 mg/5 mL liquid 5 ml PO Q6H PRN (Reason: cold symptoms) Qty: 120 RF: 0 prednisone 20 mg tablet 40 mg PO DAILY 5 Days Qty: 10 RF: 0 Referrals: [facility] [Primary Care Provider] - 2 days Print Language: Sami
== END 2021-10-30 13:47 | disposition home or self-care (01) ==
PROVIDERS: Emergency Provider Emergency Medicine
DX: J40 Bronchitis, not specified as acute or chronic (principal); J45.909 Unspecified asthma, uncomplicated; Z79.899 Other long term (current) drug therapy; Z20.822 Contact with and (suspected) exposure to COVID-19
CPT/HCPCS: 36415; 87635; 99283

== ENCOUNTER 2021-10-31 16:38 | Emergency (ER) | payer OTHER, SELFPAY ==
--- NOTE | ~2021-10-31 | CT_ITS ---
EXAMINATION: CT head/brain wo con, CT facial bones wo con, CT cervical spine wo con INDICATION INFORMATION: Reason for Exam trauma COMPARISON: None TECHNIQUE: Separate noncontrast CT examinations of the head and cervical spine were performed. Coronal and sagittal images were created for each examination at the technologist workstation. This CT examination was performed using dose optimization techniques as appropriate, variously including the following: *Automated exposure control *Adjustment of mA and/or kV according to patient size (this includes techniques or standardized protocols for targeted exams where dose is matched to indication/reason for exam; i.e. extremities or head) *Use of iterative reconstruction technique DLP: 1843 mGy-cm FINDINGS: Head: Mild prefrontal soft tissue scalp swelling without acute underlying calvarial fracture.. The mastoid air cells and visualized portions of the paranasal sinuses are well aerated. There is no evidence of acute intracranial hemorrhage or territorial infarction. No abnormal mass effect or midline shift is seen. Mace to white matter differentiation is well preserved. No extra-axial fluid collections are identified. No hydrocephalus. No significant volume loss. There is no abnormal attenuation within the brain parenchyma. Facial Bones: There is no evidence of an acute facial bone fracture. Mild paranasal sinus mucosal thickening.. No significant dental disease is visualized. The orbits are unremarkable in appearance. Cervical spine: There is no evidence of acute cervical spine fracture. Vertebral bodies remain normal in height. Loss of the usual cervical spine lordosis. Disc space heights are maintained. No pre- or paravertebral soft tissue abnormality is identified. Visualized portions of the lung apices are unremarkable. The thyroid gland is unremarkable. CT/CT cervical spine wo con IMPRESSION: 1. No acute intracranial abnormality. 2. No cervical spine fracture. Loss of the usual cervical spine lordosis which may be due to positioning or muscle spasm. 3. Mild prefrontal soft tissue scalp swelling without underlying calvarial or facial fracture.
--- NOTE | ~2021-10-31 | CT_ITS ---
EXAMINATION: CT ANGIOGRAM OF THE CHEST WITH AND WITHOUT CONTRAST (CT PULMONARY ANGIOGRAM FOR PE) CT ABDOMEN AND PELVIS WITH CONTRAST CLINICAL INFORMATION: Reason for Exam ? pe trauma, + syncope COMPARISON: CT abdomen pelvis 10/12/2020, chest radiograph 01/24/2021 TECHNIQUE: Prior to contrast administration, noncontrast localization images were obtained. Subsequently, multidetector volumetric imaging was performed from the thoracic inlet to below the diaphragms following the administration of 85 mL Omnipaque 350 intravenous contrast. This was followed by multidetector acquisition of the abdomen and pelvis. No contrast reaction reported Sagittal, coronal, and MIP oblique sagittal reformatted images were obtained on the CT workstation, uploaded to PACS, and reviewed. This CT examination was performed using dose optimization techniques as appropriate, variously including the following: *Automated exposure control *Adjustment of mA and/or kV according to patient size (this includes techniques or standardized protocols for targeted exams where dose is matched to indication/reason for exam; i.e. extremities or head) *Use of iterative reconstruction technique Total exam dose-length product 1301 mGy-cm FINDINGS: QUALITY OF STUDY/CONTRAST BOLUS: Suboptimal. PULMONARY ARTERIES: Motion degradation limits assessment for segmental and subsegmental pulmonary emboli. No central or lobar pulmonary embolism. THORACIC AORTA: No aneurysm. LUNG: Respiratory motion limits assessment for pulmonary nodules. Mild bronchial wall thickening. PLEURA: No pleural effusion or pneumothorax. MEDIASTINUM: Mild right atrial and right ventricular enlargement. No pericardial effusion. No hilar or mediastinal lymphadenopathy. CHEST WALL/AXILLA: No axillary or internal mammary lymphadenopathy. LIVER, GALLBLADDER, AND BILIARY TREE: Hypoattenuating hepatic parenchyma compatible with hepatic steatosis. Minimal reflux of contrast into the hepatic veins. The gallbladder is unremarkable with no evidence of radiopaque gallstones, gallbladder wall thickening, or obvious pericholecystic inflammatory changes. PANCREAS: Unremarkable. SPLEEN: Unremarkable. ADRENAL GLANDS: Unremarkable. KIDNEYS AND URETERS: Unremarkable BLADDER: Unremarkable. GASTROINTESTINAL TRACT: The small and large bowel are unremarkable. No findings of acute appendicitis. ABDOMINAL WALL: Unremarkable LYMPH NODES: No lymphadenopathy. VASCULAR: Unremarkable. PELVIC VISCERA: Unremarkable. OSSEOUS STRUCTURES: Unremarkable. CT/CT angio chest PE protocol IMPRESSION: Motion degradation limits assessment for segmental and subsegmental pulmonary emboli. No central or lobar pulmonary embolism. Mild right atrial and right ventricular enlargement, with minimal reflux of contrast into the hepatic veins which can be seen in the setting of elevated right heart pressures.. Mild bronchial wall thickening, which can be seen in the setting of small airways inflammation/infection. Hypoattenuating hepatic parenchyma compatible with hepatic steatosis.
[2021-10-31 16:52] VITALS: BP 138/82; BP 142/80; PULSE 78; PULSE 94; RESP 20; TEMP 36.8; O2SAT 100; BMI 25.2
--- NOTE | 2021-10-31 16:59 | ECG_ITS ---
Test Reason : SYNCOPE Blood Pressure : / mmHG Vent. Rate : 065 BPM Atrial Rate : 065 BPM P-R Int : 130 ms QRS Dur : 082 ms QT Int : 378 ms P-R-T Axes : 011 016 -24 degrees QTc Int : 393 ms Normal sinus rhythm ST & T wave abnormality, consider anterior ischemia Abnormal ECG No previous ECGs available Referred By: Evette Interiano Electronically Signed By:Arsh Toro
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
[2021-10-31 17:23] LABS: Basophils Absolute Auto 0.1 X10*3/uL (0.0-0.2); Basophils Percent Auto 0.7 % (0-2); Eosinophils Absolute Auto 0.1 X10*3/uL (0.0-0.4); Eosinophils Percent Auto 1.3 % (0-4); Hematocrit 39.9 % (37.0-47.0); Hemoglobin 13.3 g/dl (12.0-16.0); Imm Gran Abs Auto 0.03 X10*3/uL (0.00-0.03); Imm Gran Pct Auto 0.3 % (0.0-0.4); Lymphocytes Absolute Auto 1.6 X10*3/uL (1.2-4.9); Lymphocytes Percent Auto 17.7 % (20-40); MANUAL DIFF FLAG NO; Mean Corpuscular HGB Conc 33.3 g/dl (31.0-35.0); Mean Corpuscular Hemoglobin 32.2 pg (27.0-33.0); Mean Corpuscular Volume 96.6 fL (80.0-98.0); Monocytes Absolute Auto 0.7 X10*3/uL (0.1-1.2); Monocytes Percent Auto 7.8 % (2-11); Neutrophils Absolute Auto 6.7 x10*3/uL (2.0-8.3); Neutrophils Percent Auto 72.2 % (45-73); Platelet Count 190 X10*3/uL (160-400); Red Blood Count 4.13 X10*6/uL (4.20-5.50); Red Cell Distribution Width 13.3 % (11.0-16.0); White Blood Count 9.2 X10*3/uL (4.8-10.8)
[2021-10-31] MEDS: 0.9 % Sodium Chloride 1,000 ML 999 ML IV (17:27)
[2021-10-31] MEDS: Ketorolac Tromethamine 15 MG/ML VIAL IVPUSH (17:27)
[2021-10-31 17:36] LABS: Ethanol < 10 mg/dL
[2021-10-31 17:40] LABS: Alanine Aminotransferase 13 U/L (0-31); Alkaline Phosphatase 53 U/L (39-117); Anion Gap 12 (12-20); Aspartate Amino Transferase 15 U/L (5-31); Bilirubin Direct < 0.2 mg/dL (0.0-0.5); Bilirubin Total 0.4 mg/dL (0.0-1.0); Blood Urea Nitrogen 15 mg/dL (9-16); Calcium 9.4 mg/dL (8.4-10.2); Carbon Dioxide 23 mmol/L (22-29); Chloride 108 mmol/L (96-108); Creatinine Clr Calc Pharmacy 80.9; Estimated Glomerular Filt Rate > 60; Glucose Random 103 mg/dL (60-115); Potassium 4.9 mmol/L (3.3-5.1); Sodium 138 mmol/L (135-145); Total Protein 6.9 g/dL (6.5-8.0)
[2021-10-31 17:43] LABS: Troponin-I High Sensitivity < 3.5 ng/L (<3.5-17.0)
[2021-10-31 17:45] LABS: HCG Quantitative < 2 mIU/mL
[2021-10-31 18:17] LABS: Amphetamine Screen Urine Not Detected (Not Detect); Barbiturates, Urine Not Detected (Not Detect); Benzodiazepines Screen Urine Not Detected (Not Detect); Cannabinoid Screen Urine POSITIVE (Not Detect); Cocaine Screen Urine Not Detected (Not Detect); Fentanyl, urine Not Detected (Not Detect); Opiate Screen Urine Not Detected (Not Detect); Phencyclidine Screen Urine Not Detected (Not Detect)
[2021-10-31] MEDS: iohexoL 350 MG/ML 100 ML INFUS..BTL IV (18:32)
== END 2021-10-31 21:06 | disposition home or self-care (01) ==
PROVIDERS: Emergency Provider Emergency Medicine Emergency Medical Services; PCP Family Medicine
DX: S09.90XA Unspecified injury of head, initial encounter (principal); V43.52XA Car driver injured in collision with other type car in traffic accident, initial encounter; I10 Essential (primary) hypertension; E11.9 Type 2 diabetes mellitus without complications; Y93.89 Activity, other specified; Y92.414 Local residential or business street as the place of occurrence of the external cause; Y99.9 Unspecified external cause status
CPT/HCPCS: 36415; 70450; 70486; 71275; 72125; 74177; 80048; 80076; 80307; 82077; 84484; 84702; 85025; 93005; 96361; 96374; 99284; J1885; Q9967

== ENCOUNTER 2021-11-18 07:34 | Emergency (ER) | payer OTHER, SELFPAY ==
[2021-11-18 07:47] VITALS: BP 136/86; PULSE 106; RESP 18; TEMP 37.2; O2SAT 100; BMI 28.5
--- NOTE | 2021-11-18 07:50 | ED.URI ---
HPI - URI/Sore Throat General Chief Complaint: Upper Respiratory Symptoms Stated Complaint: BODY ACHES DIFF BREATHING Time Seen by Provider: 11/18/21 07:50 Source: patient Mode of arrival: ambulatory Limitations: no limitations History of Present Illness HPI Narrative: 2 vaccines for COVID elicited complaint: fever, sore throat, nasal congestion and other (body aches) Pertinent past history: other (both of her sisters has covid she was exposed) Onset (ago): day(s) (2) Consistency: constant Severity: moderate Description of mucous: clear Able to tolerate fluids by mouth: Yes Exacerbating factors: exertion Relieving factors: nothing Context: sick contacts Associated symptoms: fever, chills, myalgias, headache, rhinorrhea, sore throat and cough Treatments prior to arrival: none Related Data Previous Rx's Medication Instructions Recorded albuterol sulfate 90 mcg/actuation 1 inh INHALATION QID PRN #8.5 g 10/30/21 aerosol inhaler azithromycin 250 mg tablet See Rx Instructions .ROUTE 10/30/21 .COMPLEX #6 tab codeine 10 mg-guaifenesin 100 mg/5 5 ml PO Q6H PRN #120 ml 10/30/21 mL oral liquid (Guaifenesin AC) prednisone 20 mg tablet 40 mg PO DAILY 5 Days #10 tab 10/30/21 Allergies Allergy/AdvReac Type Severity Reaction Status Date / Time No Known Allergies Allergy Verified 10/11/21 14:55 Review of Systems Review of Systems: Constitutional : positive Fever, positive Chills, positive fatigue, positive Malaise ENT/Mouth : positive sore throat, positive runny nose Eyes: No Discharge Cardiovascular : No Chest Pain, No SOB Respiratory : No Cough, No Sputum Gastrointestinal : No Nausea, No Vomiting, No Diarrhea Genitourinary : No Dysuria, No Urinary Frequency Musculoskeletal : positive Myalgia Skin : No rash Neuro : No Headache PMFSH Past Medical History Medical History Asthma No known health problems Surgical History H/O tubal ligation Family History Family History Father No problems noted. Mother Diabetes Thyroid disease High cholesterol High blood pressure Social History Social History (Updated 11/18/21 @ 08:02 by Ashley Scott DO) Alcohol intake: unknown Patient Tobacco Use Status: Never used Tobacco Substance Use Type: Marijuana Advance Directives: No Advance Directives Information Provided: No Physical Exam Vital Signs: Vital Signs: Last Vital Signs Temp 98.9 F 11/18/21 07:47 Pulse 106 H 11/18/21 07:47 Resp 18 11/18/21 07:47 BP 136/86 11/18/21 07:47 Pulse Ox 100 11/18/21 07:47 BMI result Body Mass Index 28.5 Appearance: Alert. Oriented X3. No acute distress. Eyes: Pupils equal, round and reactive to light. ENT: Pharynx normal. Neck: Normal inspection. Neck supple. CVS: Normal heart rate and rhythm. Pulses normal. Respiratory: No respiratory distress. Breath sounds normal. Abdomen: Soft and non-tender. Skin: Skin warm and dry. Normal skin color. Normal skin turgor. Extremities: No lower extremity edema. Neuro: Oriented X 3. No motor deficit. No sensory deficit. MDM - URI/Sore Throat MDM Narrative Medical decision making narrative: 35 yo female with asthma has rescue inhaler at home reports viral symptoms her lungs are CTAB and her O2 sats are 100% on RA - she is vaccinated x 2 at this time will obtain COVID swab given her exposure dispo per results and findings Lab Data Labs: Lab Results 11/18/21 Range/Units 07:58 COVID-19 (KATELYN) Positive A (Negative) COVID-19 Clin Com See Note Discharge Plan Discharge Clinical Impression: COVID-19 Patient Disposition: Home, Self-Care Instructions: COVID-19 (Coronavirus Disease 2019) (ED) Additional Instructions: return to ED for any worsening symptoms or concerns if you are so short of breath you cannot walk to the bathroom please seek immediate care Prescriptions: No Action albuterol sulfate 90 mcg/actuation HFA aerosol inhaler 1 inh inhalation QID PRN (Reason: shortness of breath or wheezing) Qty: 8.5 RF: 0 azithromycin 250 mg tablet See Rx Instructions .ROUTE .COMPLEX Qty: 6 RF: 0 codeine-guaifenesin [Guaifenesin AC] 10-100 mg/5 mL liquid 5 ml PO Q6H PRN (Reason: cold symptoms) Qty: 120 RF: 0 prednisone 20 mg tablet 40 mg PO DAILY 5 Days Qty: 10 RF: 0 Stand Alone Forms: Work/School Release
[2021-11-18 08:14] LABS: COVID-19 Test Positive (Negative)
== END 2021-11-18 09:08 | disposition home or self-care (01) ==
PROVIDERS: Emergency Provider Emergency Medicine; PCP Family Medicine
DX: U07.1 COVID-19 (principal)
CPT/HCPCS: 36415; 87635; 99283

== ENCOUNTER 2021-11-27 09:10 | Outpatient (REF) | payer OTHER, SELFPAY ==
[2021-11-27 10:17] LABS: Binax Internal Control QC Valid; Binax Lot number: 9864; Binax Now Covid-19 Ag Negative (Negative)
== END 2021-11-27 09:11 | disposition home or self-care (01) ==
LOC: HO.LAB 09:10
PROVIDERS: Visit Provider Internal Medicine
DX: Z20.822 Contact with and (suspected) exposure to COVID-19 (principal)
CPT/HCPCS: 36415; C9803

== ENCOUNTER → 2022-04-03 09:33 | Outpatient (BNVA) | payer SELFPAY | PROVIDERS: PCP Family Medicine | DX: Z11.1 Encounter for screening for respiratory tuberculosis (principal) ==

== ENCOUNTER 2022-11-23 17:33 | Emergency (ER) | payer OTHER, SELFPAY ==
[2022-11-23 17:40] VITALS: BP 143/90; PULSE 90; RESP 18; TEMP 37.1; O2SAT 100; BMI 29.2
--- NOTE | 2022-11-23 17:45 | ED.URI ---
HPI - URI/Sore Throat General Chief Complaint: Upper Respiratory Symptoms Stated Complaint: sob,coughing,lower back pain Time Seen by Provider: 11/23/22 19:18 Source: patient Mode of arrival: ambulatory Limitations: no limitations History of Present Illness HPI Narrative: 36-year-old female with a history of asthma presents with 4 days of body aches, headache, nasal congestion. Related Data Previous Rx's Medication Instructions Recorded albuterol sulfate 90 mcg/actuation 1 inh inhalation QID PRN shortness 10/30/21 aerosol inhaler of breath or wheezing #8.5 grams azithromycin 250 mg tablet See Rx Instructions PO .COMPLEX #6 10/30/21 tabs codeine 10 mg-guaifenesin 100 mg/5 5 ml PO Q6H PRN cold symptoms #120 10/30/21 mL oral liquid (Guaifenesin AC) mL prednisone 20 mg tablet 40 mg PO DAILY rash 5 days #10 tabs 10/30/21 Allergies Allergy/AdvReac Type Severity Reaction Status Date / Time No Known Allergies Allergy Verified 10/11/21 14:55 Review of Systems Review of Systems: Yes all other systems are reviewed and are negative Constitutional: Constitutional: Reports no additional constitutional complaints, Reports body ache(s), Denies chills, Denies fever(s), Reports headache(s) and Denies weakness Eyes: Eyes: Reports no additional eye complaints and Denies change in vision ENT: Reports system reviewed and no additional complaints, except as documented, Denies dizziness, Reports headache(s), Reports nasal congestion, Denies nasal discharge and Denies neck pain Cardiovascular: Cardiovascular: Reports no additional cardiovascular complaints, Denies chest pain, Denies leg edema and Denies dyspnea Respiratory: Respiratory: Reports no additional respiratory complaints, Denies cough and Denies dyspnea Gastrointestinal: Gastrointestinal: Reports no additional gastrointestinal complaints, Denies abdominal pain, Denies diarrhea, Denies nausea and Denies vomiting Genitourinary: Genitourinary: Reports no additional female genitourinary complaints and Denies urinary incontinence Musculoskeletal: Musculoskeletal: Reports no additional musculoskeletal complaints, Denies back pain, Denies arthralgias, Denies joint swelling, Denies neck pain, Denies numbness and Denies tingling Integumentary/Breasts: Skin/Breast: Reports system reviewed and no additional complaints, except as docu and Denies rash Neurologic: Reports system reviewed and no additional complaints, except as documented, Denies Abnormal speech present, Denies dizziness, Reports headache(s), Denies numbness, Denies tingling and Denies weakness PMFSH Past Medical History Attestation statement: The following information was validated with the patient. Source: old records reviewed and nursing notes reviewed Medical History Asthma No known health problems Surgical History H/O tubal ligation Family History Family History Father No problems noted. Mother Diabetes Thyroid disease High cholesterol High blood pressure Social History Social History Alcohol intake: unknown Patient Tobacco Use Status: Never used Tobacco Substance Use Type: Marijuana Advance Directives: No Advance Directives Information Provided: No Physical Exam Vital Signs: Vital Signs: Last Vital Signs Temp 98.8 F 11/23/22 17:40 Pulse 90 11/23/22 17:40 Resp 18 11/23/22 17:40 BP 143/90 H 11/23/22 17:40 Pulse Ox 100 11/23/22 17:40 O2 Del Method 11/23/22 17:40 BMI result Body Mass Index 29.2 Const: General: cooperative, healthy appearing, comfortable and no acute distress Orientation/consciousness: patient oriented x3 Limitations: no limitations HEENT: Head: Yes normal to inspection Ears: hearing grossly normal bilaterally and TM's normal bilaterally General nose exam: Normal external nose present Face and sinus: Yes normal facial exam Mouth: Normal oral and palatal mucosa present Throat: Yes posterior oropharynx normal, Yes tonsils normal and Yes uvula midline Eyes: General: appearance normal, both eyes and all related structures Pupils: Equal, round and reactive pupils present Neck: Neck: Yes normal visual inspection, Yes full ROM, Yes no lymphadenopathy and Yes no meningeal signs Chest: Chest palpation & inspection: normal inspection of the chest Resp: Effort & Inspection: normal respiratory effort Auscultation: clear to auscultation bilaterally Cardio: Rate: regular rate Rhythm: regular rhythm Peripheral pulses: Peripheral pulses 2+ throughout GI: Inspection: Yes normal to inspection Palpation (GI): Soft to palpation and nontender Auscultation: normal bowel sounds Back/Spine/Pelvis: Thoracic/Lumbar Spine: thoracic and lumbar spine normal to inspection Skin: General skin exam: no rashes or lesions noted Neuro: General: patient oriented x3, no meningeal signs, no focal motor deficits and normal sensation to monofilament Cranial nerves: Yes Equal, round and reactive pupils present Cognition (Neuro): normal cognition Speech: No Abnormal speech present Gait exam (Neuro): Normal gait present Motor exam (neuro): 5/5 motor strength present throughout Extrem: General: Yes normal to inspection Course Course Course Narrative: This is wrap a medical exam. Defer additional HPI, ROS, PE to primary provider 36-year-old female with a history of asthma here with flu-like symptoms for 4 days. Will send testing for flu, COVID, RSV. Vitals are stable. Reevaluation(s) Reevaluation #1: COVID screen is positive. No hypoxia or tachypnea. Lungs are clear. Reviewed supportive care at home. Reviewed worrisome signs and symptoms when to return to the emergency room. Comfortable plan for discharge home. Medical Decision Making Medical Decision Making [facility] Narrative: 36-year-old female with history of asthma here with 4 days of nasal congestion, headache, body aches. Vitals are stable. Will send testing for flu, COVID, RSV Differential Diagnosis Differential Diagnoses: The differential diagnosis associated with the presentation includes Influenza, viral syndrome Lab Data [facility] Lab Attestation statement: I reviewed the patient's lab results. Labs: Lab Results 11/23/22 Range/Units 17:51 Influenza Type A (PCR) NEGATIVE (Negative) Influenza Type B (PCR) NEGATIVE (Negative) RSV RNA Qual (PCR) NEGATIVE (Negative) SARS-CoV-2 RNA (RT-PCR) POSITIVE A (Negative) Prescription Management I considered prescription management with: Antiviral Offered Paxlovid. Declined by patient. Discharge Plan Discharge Clinical Impression: COVID-19 Patient Disposition: Home, Self-Care Instructions: COVID-19 (Coronavirus Disease 2019) (ED) Additional Instructions: COVID test is positive. Testing for flu and RSV are negative. Alternate Motrin and Tylenol for pain or fever Increase fluids, rest We discussed Paxlovid which is the oral medication available for for treatment of COVID. At this time you declined this. Prescriptions: No Action albuterol sulfate 90 mcg/actuation HFA aerosol inhaler 1 inh inhalation QID PRN (Reason: shortness of breath or wheezing) Qty: 8.5 0RF azithromycin 250 mg tablet See Rx Instructions .ROUTE .COMPLEX Qty: 6 0RF Rx Instructions: take 500 mg today (day 1), then 250 mg for 4 days (days 2-5) codeine-guaifenesin [Guaifenesin AC] 10-100 mg/5 mL liquid 5 ml PO Q6H PRN (Reason: cold symptoms) Qty: 120 0RF prednisone 20 mg tablet 40 mg PO DAILY 5 Days Qty: 10 0RF Referrals: Po,Minna Wong MD [Primary Care Provider] - 1 week Stand Alone Forms: Work/School Release
[2022-11-23 18:36] LABS: Influenza A PCR NEGATIVE (Negative); Influenza B PCR NEGATIVE (Negative); Resp Syncy Virus RNA Qual PCR NEGATIVE (Negative); SARS COV2 PCR INHOUSE POSITIVE (Negative)
== END 2022-11-23 19:27 | disposition home or self-care (01) ==
PROVIDERS: Emergency Provider Emergency Medicine; PCP Internal Medicine
DX: U07.1 COVID-19 (principal); J45.909 Unspecified asthma, uncomplicated
CPT/HCPCS: 0241U; 99282; 99283

== ENCOUNTER 2022-12-11 11:26 | Outpatient (REF) | payer OTHER, SELFPAY ==
[2022-12-11 18:18] LABS: CT PCR NOT DETECTED (Not Detect.); NG PCR NOT DETECTED (Not Detect.)
[2022-12-12 09:42] LABS: BV Int Neg Control Negative (Negative); BV Int Pos Control Positive (Positive)
== END 2022-12-11 11:27 | disposition home or self-care (01) ==
LOC: HO.LNP 11:26
PROVIDERS: PCP Internal Medicine; Visit Provider Advanced Practice Midwife
DX: Z01.419 Encounter for gynecological examination (general) (routine) without abnormal findings (principal); N92.6 Irregular menstruation, unspecified; Z11.3 Encounter for screening for infections with a predominantly sexual mode of transmission
CPT/HCPCS: 0353U; 87480; 87510; 87660

== ENCOUNTER 2023-01-14 07:30 | Emergency (ER) | payer OTHER, SELFPAY ==
--- NOTE | ~2023-01-14 | CT_ITS ---
EXAMINATION: CT ANGIOGRAM HEAD CT ANGIOGRAM NECK CLINICAL INFORMATION: Severe headache. Neck pain. Carotid dissection. COMPARISON: CT head and cervical spine from 10/31/2021. TECHNIQUE: Initial noncontrast lay midwife imaging of the head and neck was performed. Noncontrast head CT was also performed. Test bolus sequences followed by intravenous administration 70 mL of 350. Helical imaging was performed in the axial plane from the aortic arch to the skull vertex. Delayed postcontrast imaging of the head was also performed. The data was processed at the magnetic resonance technologist's workstation for generation of MIP sequences. Angled MIPs and volume rendered reformatted images were also generated at an offline 3D workstation. Stenoses are assessed in accordance with NASCET criteria unless otherwise indicated. This CT examination was performed using dose optimization techniques as appropriate, variously including the following: *Automated exposure control. *Adjustment of mA and/or kV according to patient size (this includes techniques or standardized protocols for targeted exams where dose is matched to indication/reason for exam; i.e. extremities or head). *Use of iterative reconstruction technique. DLP: 2265 mGy-cm FINDINGS: CT Head: There is no evidence of acute intracranial hemorrhage or edematous territorial infarction. There is no abnormal attenuation within the brain parenchyma. Mace-white matter differentiation is preserved. The ventricles are normal in size and configuration. No evidence for obstructive hydrocephalus. No abnormal mass effect or midline shift. The cerebellar tonsils are normally positioned. Mild expansion of the sella turcica. Otherwise, normal appearance of the pituitary gland on limited evaluation. No extra-axial fluid collections. No pathologic intra-axial enhancement or regional oligemia. No acute soft tissue or osseous abnormalities. Mild mucosal thickening of the paranasal sinuses. The mastoid air cells and middle ear cavities are clear. CT Neck: The thyroid gland and remaining cervical soft tissues are within normal limits. No significant abnormalities of the cervical spine. CT Upper Chest: The visualized lung apices and upper mediastinum are within normal limits. Neck CTA: Aortic Arch: Normal contour and caliber. Classic 3 vessel branching pattern of the aortic arch. Great Vessel Origins: No significant stenosis of the branch origins. Right Common Carotid Artery: No focal stenosis or occlusion. Cervical Right Internal Carotid Artery: Normal opacification without focal stenosis or occlusion. Left Common Carotid Artery: No focal stenosis or occlusion. Cervical Left Internal Carotid Artery: Normal opacification without focal stenosis or occlusion. Cervical Right Vertebral Artery: Co-dominant. No focal stenosis or occlusion. Cervical Left Vertebral Artery: Co-dominant. No focal stenosis or occlusion. Brain CTA: Intracranial Internal Carotid Arteries: No focal stenosis or occlusion. Right Anterior Cerebral Artery: Normal A1 segment. Normal opacification of the distal HUNG segments. Left Anterior Cerebral Artery: Normal A1 segment. Normal opacification of the distal HUNG segments. Anterior Communicating Artery: Normal. Right Middle Cerebral Artery: Normal M1 segment of the MCA without focal stenosis or occlusion. Normal arborization of the distal segments. Left Middle Cerebral Artery: Normal M1 segment of the MCA without focal stenosis or occlusion. Normal arborization of the distal segments. Right Vertebral Artery: Normal V4 segment. Normal opacification of the proximal segments of the posterior inferior cerebellar artery. Left Vertebral Artery: Normal V4 segment. Normal opacification of the proximal segments of the posterior inferior cerebellar artery. Basilar Artery: Normal without focal stenosis or occlusion. Normal appearance of the proximal superior cerebellar arteries. Right Posterior Cerebral Artery: Normal P1 segment. Normal opacification of the distal WELDING ROBOT OPERATOR segments. Left Posterior Cerebral Artery: Normal P1 segment. Normal opacification of the distal WELDING ROBOT OPERATOR segments. Right dominant transverse/sigmoid sinuses. There are stenoses of the lateral aspects of the left greater than right transverse sinuses. Otherwise, normal Opacification of the superior sagittal, straight, transverse, and sigmoid sinuses. CT/CT angio head neck IMPRESSION: 1. No evidence of acute intracranial hemorrhage or edematous territorial infarction. 2. CTA of the head and neck without proximal occlusion or flow-limiting stenosis. No evidence of traumatic vascular injury. 3. There are stenoses of the lateral aspects of the left greater than right transverse sinuses. This appearance is nonspecific but can be seen in correlation with idiopathic intracranial hypertension.
[2023-01-14 07:33] VITALS: BP 132/87; PULSE 93; RESP 18; TEMP 36.7; O2SAT 100; BMI 29.2
--- NOTE | 2023-01-14 08:21 | ED.HA ---
HPI - Headache General Chief Complaint: Headache Stated Complaint: headache, blurry vision, neck/back pain Time Seen by Provider: 01/14/23 08:08 Source: patient Mode of arrival: ambulatory Limitations: no limitations History of Present Illness HPI Narrative: This is a 37 years old of female presented to the emergency department with chief complaint of a headache x3 weeks. Denies any fever chills nausea vomiting. She visited the PCP on 01/05 and placed on muscle relaxant. Onset (ago): week(s) (3) Onset description: gradually Severity: mild Quality & Timing: aching Exacerbating factors: none Relieving factors: nothing Related Data Home Medications Medication Instructions Recorded Confirmed albuterol sulfate 0.63 mg/3 mL 0.63 mg inhalation QID PRN 12/11/22 01/05/23 solution for nebulization Previous Rx's Medication Instructions Recorded albuterol sulfate 90 mcg/actuation 1 inh inhalation QID PRN shortness 10/30/21 aerosol inhaler of breath or wheezing #8.5 grams cyclobenzaprine 5 mg tablet 5 mg PO BEDTIME PRN muscle spasm 01/05/23 #14 tabs [id number]-ttifgfoivoiyt-[id number] 1 tab PO Q6H PRN headache #14 tabs 01/14/23 50 mg-325 mg-40 mg tablet Allergies Allergy/AdvReac Type Severity Reaction Status Date / Time No Known Allergies Allergy Verified 01/05/23 09:03 Review of Systems Constitutional: Constitutional: Reports no additional constitutional complaints ENT: Reports system reviewed and no additional complaints, except as documented Cardiovascular: Cardiovascular: Reports no additional cardiovascular complaints Gastrointestinal: Gastrointestinal: Reports no additional gastrointestinal complaints [facility] Past Medical History [facility] Narrative: She denies any major medical problems Medical History Asthma Cervical muscle strain No known health problems Surgical History H/O tubal ligation Family History Family History (Updated 01/05/23 @ 08:22 by QUE Drake) Father No problems noted. Mother Diabetes Thyroid disease High cholesterol High blood pressure Brother No problems noted. Social History Social History Alcohol intake: current Alcohol intake frequency: holidays/special occasions only Patient Tobacco Use Status: Never used Tobacco Substance Use Type: Marijuana Advance Directives: No Advance Directives Information Provided: No Cognitive needs: No Hearing needs: No Vision needs: No Physical Exam Vital Signs: Vital Signs: Last Vital Signs Temp 98.1 F 01/14/23 07:33 Pulse 62 01/14/23 13:32 Resp 16 01/14/23 13:32 BP 115/66 01/14/23 13:32 Pulse Ox 100 01/14/23 13:32 O2 Del Method 01/14/23 13:32 BMI result Body Mass Index 29.2 On physical examination she has stable vital signs, she is not toxic-appearing, no distress noted Const: General: cooperative, comfortable, well developed, alert, awake and Physically active Nutritional Appearance: average body habitus Orientation/consciousness: patient oriented x3 Limitations: no limitations HEENT: Head: Yes normal to inspection General nose exam: Normal external nose present Face and sinus: Yes normal facial exam Mouth: Normal oral and palatal mucosa present Throat: Yes posterior oropharynx normal Neck: Neck: Yes normal visual inspection, Yes full ROM and Yes no lymphadenopathy Chest: Chest palpation & inspection: normal inspection of the chest Resp: Effort & Inspection: normal respiratory effort Auscultation: clear to auscultation bilaterally Cardio: Jugular venous distension: no JVD Rate: regular rate Rhythm: regular rhythm GI: Inspection: Yes normal to inspection Palpation (GI): Soft to palpation, not firm, nontender and no guarding Percussion: Yes normal to percussion Neuro: General: patient oriented x3 Cranial nerves: Yes CN's II-XII intact bilaterally Motor exam (neuro): 5/5 motor strength present throughout Course Reevaluation(s) Reevaluation #1: She is feeling better now headache is gone, CTA does not show aneurysm no stroke, radiology ? Non specific stenosis of the lateral aspect left greater right transverse sinus. I think this can be followed up as outpatient will give Neurology number clinically she has improved Time: 14:39 Medications Administered Discontinued Medications Generic Name Dose Route Start Last Admin Trade Name Freq PRN Reason Stop Dose Admin Sodium Chloride 1,000 mls @ 999 mls/hr 01/14/23 08:30 01/14/23 12:01 Ns IVCONT 01/14/23 09:30 Infused .Q1H1M MARY ELLEN Infusion Iohexol 100 ml 01/14/23 09:26 01/14/23 09:27 Iohexol 350 Mg/Ml 100 Ml Infus..Btl IV 01/14/23 09:27 70 ml ONCE ONE Administration Ketorolac Tromethamine 30 mg 01/14/23 08:19 01/14/23 08:35 Ketorolac Tromethamine 30 Mg/Ml Vial IVPUSH 01/14/23 08:20 30 mg ONCE ONE Administration Medical Decision Making Medical Decision Making [facility] Narrative: Presented to the ED c/o ASHLEY at least 3 weeks will get imaging lab. [address] review no evidence of aneurysmal no evidence of bleeding, no CVA,this is unlikely meningitis she has no fever she has a normal white count, the Radiology question stenosis of transverse sinus, but given the fact that she improved clinically she feels much better I think this can be followed up as outpatient. I gave the patient a number of the neurologist she will call tomorrow make an appointment she will return to the emergency department if worse if fever if vomiting any concern. Differential Diagnosis Differential Diagnoses: The differential diagnosis associated with the presentation includes subarachnoid bleed/migraine.tension ASHLEY Admission/Observation Consideration of admission/observation: Escalation of care including admission/observation considered Lab Data [facility] Lab Attestation statement: I reviewed the patient's lab results. 01/14/23 08:26 01/14/23 08:26 Labs: Lab Results 01/14/23 01/14/23 Range/Units 08:26 08:26 WBC 5.9 (4.8-10.8) X10*3/uL RBC 4.33 (4.20-5.50) X10*6/uL Hgb 13.2 (12.0-16.0) g/dl Hct 40.1 (37.0-47.0) % MCV 92.6 (80.0-98.0) fL MCH 30.5 (27.0-33.0) pg MCHC 32.9 (31.0-35.0) g/dl RDW 13.3 (11.0-16.0) % Plt Count 160 (160-400) X10*3/uL MPV 10.4 (9.4-12.3) fL Immature Gran % (Auto) 0.3 (0.0-0.4) % Neut % (Auto) 58.3 (45-73) % Lymph % (Auto) 31.2 (20-40) % Green % (Auto) 6.1 (2-11) % Eos % (Auto) 3.6 (0-4) % Baso % (Auto) 0.5 (0-2) % Lymph # (Auto) 1.8 (1.2-4.9) X10*3/uL Green # (Auto) 0.4 (0.1-1.2) X10*3/uL Eos # (Auto) 0.2 (0.0-0.4) X10*3/uL Baso # (Auto) 0.0 (0.0-0.2) X10*3/uL Abs Immat Gran (auto) 0.02 (0.00-0.03) X10*3/uL Absolute Neuts (auto) 3.4 (2.0-8.3) x10*3/uL Absolute Nucleated RBC 0.000 (0.0-0.012) X10*3/uL Nucleated RBC % (auto) 0.0 (0.0-0.2) /100WBC Sodium 139 (135-145) mmol/L Potassium 4.4 (3.3-5.1) mmol/L Chloride 110 H (96-108) mmol/L Carbon Dioxide 23 (22-29) mmol/L Anion Gap 10 L (12-20) BUN 10 (9-16) mg/dL Creatinine 0.82 (0.5-1.4) mg/dL Estim Creat Clear Calc 81.6 Estimated GFR > 60 Random Glucose 95 (60-115) mg/dL Calcium 8.8 D (8.4-10.2) mg/dL Total Bilirubin 0.8 (0.0-1.0) mg/dL AST 15 (5-31) U/L ALT 13 (0-31) U/L Alkaline Phosphatase 46 (39-117) U/L Total Protein 6.6 (6.5-8.0) g/dL Albumin 3.8 (3.5-5.0) g/dL Beta HCG, Quant < 2 mIU/mL Radiology Impression Discussion of test interpretation with radiology: I have reviewed the radiologist's reading. Radiologist Impression: Left Vertebral Artery: Normal V4 segment. Normal opacification of the proximal segments of the posterior inferior cerebellar artery. Basilar Artery: Normal without focal stenosis or occlusion. Normal appearance of the proximal superior cerebellar arteries. Right Posterior Cerebral Artery: Normal P1 segment. Normal opacification of the distal SAFETY ATTENDANT segments. Left Posterior Cerebral Artery: Normal P1 segment. Normal opacification of the distal SAFETY ATTENDANT segments. Right dominant transverse/sigmoid sinuses. There are stenoses of the lateral aspects of the left greater than right transverse sinuses. Otherwise, normal Opacification of the superior sagittal, straight, transverse, and sigmoid sinuses. CT/CT angio head neck IMPRESSION: 1.? No evidence of acute intracranial hemorrhage or edematous territorial infarction. 2.? CTA of the head and neck without proximal occlusion or flow-limiting stenosis. No evidence of traumatic vascular injury. 3.? There are stenoses of the lateral aspects of the left greater than right transverse sinuses. This appearance is nonspecific but can be seen in correlation with idiopathic intracranial hypertension. ? Dictated By: Rajendra Engle DO Signed By: <Electronically signed by Rajendra Engel DO in OV> 01/14/23 1046 DD/ 0927 Discharge Plan Discharge Clinical Impression: Headache Patient Disposition: Home, Self-Care Instructions: Acute Headache (ED) Additional Instructions: We would like you to follow up with neurologist, we gave you the number of Dr. Godinez, return to the emergency room if you worse a few vomiting if you have a fever any concern Prescriptions: New wqvsnuhshm-dolgrqslrnvlk-medb 50-325-40 mg tablet 1 tab PO Q6H PRN (Reason: headache) Qty: 14 0RF No Action albuterol sulfate 90 mcg/actuation HFA aerosol inhaler 1 inh inhalation QID PRN (Reason: shortness of breath or wheezing) Qty: 8.5 0RF cyclobenzaprine 5 mg tablet 5 mg PO BEDTIME PRN (Reason: muscle spasm) Qty: 14 0RF albuterol sulfate 0.63 mg/3 mL solution for nebulization 0.63 mg inhalation QID PRN Referrals: Maribel Godinez MD [Physician] - 3 days Stand Alone Forms: Work/School Release Interventions: ED Discharge Assessment Last Done: 01/14/23 14:51 Discharge Date/Time: 01/14/23 14:51
[2023-01-14 08:30] LABS: MANUAL DIFF FLAG NO
[2023-01-14 08:32] LABS: Basophils Percent Auto 0.5 % (0-2); Eosinophils Absolute Auto 0.2 X10*3/uL (0.0-0.4); Eosinophils Percent Auto 3.6 % (0-4); Hematocrit 40.1 % (37.0-47.0); Hemoglobin 13.2 g/dl (12.0-16.0); Imm Gran Abs Auto 0.02 X10*3/uL (0.00-0.03); Imm Gran Pct Auto 0.3 % (0.0-0.4); Lymphocytes Absolute Auto 1.8 X10*3/uL (1.2-4.9); Lymphocytes Percent Auto 31.2 % (20-40); Mean Corpuscular HGB Conc 32.9 g/dl (31.0-35.0); Mean Corpuscular Hemoglobin 30.5 pg (27.0-33.0); Mean Corpuscular Volume 92.6 fL (80.0-98.0); Mean Platelet Volume 10.4 fL (9.4-12.3); Monocytes Absolute Auto 0.4 X10*3/uL (0.1-1.2); Monocytes Percent Auto 6.1 % (2-11); Neutrophils Absolute Auto 3.4 x10*3/uL (2.0-8.3); Neutrophils Percent Auto 58.3 % (45-73); Platelet Count 160 X10*3/uL (160-400); Red Blood Count 4.33 X10*6/uL (4.20-5.50); Red Cell Distribution Width 13.3 % (11.0-16.0); White Blood Count 5.9 X10*3/uL (4.8-10.8)
[2023-01-14] MEDS: 0.9 % Sodium Chloride 1,000 ML 999 ML IVCONT (08:33)
[2023-01-14] MEDS: Ketorolac Tromethamine 30 MG/ML VIAL IVPUSH (08:35)
[2023-01-14 08:45] VITALS: RESP 16
--- NOTE | 2023-01-14 08:47 | PC.NURSE ---
Alert and oriented, resp even and unlabored. Complaining of migraine for past 3 days, states she has been taking muscle relaxers with little to no effect. Reporting blurry vision this morning, now resolved. IV established, medicated per the MAR. Resting comfortably with call longo in reach.
[2023-01-14 08:59] LABS: Alanine Aminotransferase 13 U/L (0-31); Albumin Level 3.8 g/dL (3.5-5.0); Alkaline Phosphatase 46 U/L (39-117); Anion Gap 10 (12-20); Aspartate Amino Transferase 15 U/L (5-31); Bilirubin Total 0.8 mg/dL (0.0-1.0); Blood Urea Nitrogen 10 mg/dL (9-16); Calcium 8.8 mg/dL (8.4-10.2); Carbon Dioxide 23 mmol/L (22-29); Chloride 110 mmol/L (96-108); Creatinine Clr Calc Pharmacy 81.6; Estimated Glomerular Filt Rate > 60; Glucose Random 95 mg/dL (60-115); HCG Quantitative < 2 mIU/mL; Potassium 4.4 mmol/L (3.3-5.1); Sodium 139 mmol/L (135-145); Total Protein 6.6 g/dL (6.5-8.0)
[2023-01-14] MEDS: iohexoL 350 MG/ML 100 ML INFUS..BTL IV (09:27)
[2023-01-14 09:54] VITALS: BP 119/73; PULSE 72; RESP 16; O2SAT 100
[2023-01-14 12:05] VITALS: BP 125/69; PULSE 61; RESP 16; O2SAT 100
[2023-01-14 13:32] VITALS: BP 115/66; PULSE 62; RESP 16; O2SAT 100
== END 2023-01-14 14:51 | disposition home or self-care (01) ==
PROVIDERS: Emergency Provider Emergency Medicine; PCP Internal Medicine
DX: R51.9 Headache, unspecified (principal); M79.10 Myalgia, unspecified site; M54.2 Cervicalgia; Z79.899 Other long term (current) drug therapy
CPT/HCPCS: 36415; 70496; 70498; 80053; 84702; 85025; 96361; 96374; 99284; 99285; J1885; Q9967

== ENCOUNTER → 2023-05-07 14:43 | Outpatient (BNVA) | payer OTHER, SELFPAY | PROVIDERS: PCP Internal Medicine; Visit Provider Nurse Practitioner Family | DX: R51.9 Headache, unspecified (principal); H57.13 Ocular pain, bilateral; H53.9 Unspecified visual disturbance; G89.29 Other chronic pain; I66.9 Occlusion and stenosis of unspecified cerebral artery; R25.1 Tremor, unspecified | CPT/HCPCS: 99202 ==

== ENCOUNTER 2023-06-27 13:15 | Outpatient (REF) | payer OTHER, SELFPAY ==
--- NOTE | ~2023-06-27 | MR_ITS ---
EXAMINATION: MR BRAIN WITHOUT AND WITH CONTRAST CLINICAL INFORMATION: Headache ; Stenoses of the lateral aspects of the left greater than right transverse sinuses. Pt reports h/o multiple sclerosis. COMPARISON: MR venogram 06/27/2023, CTA head and neck 01/14/2023 TECHNIQUE: Multiplanar multisequence MR imaging of the brain was obtained without and following the administration of 10 mL Gadavist intravenous contrast. FINDINGS: There is no acute infarct on diffusion-weighted imaging. There is no intracranial hemorrhage on iron-sensitive imaging. No extra-axial collection or mass effect/herniation. There are numerous scattered foci of supratentorial white matter T2/FLAIR signal abnormality, predominantly involving the deep and subcortical white matter. No lesion morphology or distribution which is specific to demyelinating disease. No hydrocephalus. The ventricles are normal in morphology and size. 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 Distal transverse sinus stenosis is better demonstrated on prior CTA and MR venogram. Partially empty sella. The cerebellar tonsils are normally positioned. The craniocervical junction is normal. Marrow signal is within normal limits. The visualized soft tissues are without significant abnormality. No signal abnormality within the paranasal sinuses or within the mastoid air cells. MR/MR head/brain wo/w con IMPRESSION: 1. Partially empty sella which can be seen in the setting of idiopathic intracranial hypertension. Stenosis of the distal transverse sinuses is better appreciated on prior MRV and CTA. 2. Numerous foci of T2/FLAIR signal abnormality involving the supratentorial white matter which are nonspecific but are compatible with demyelinating disease given patient reported history of multiple sclerosis. 3. 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
--- NOTE | ~2023-06-27 | MR_ITS ---
EXAMINATION: MR VENOGRAM OF THE HEAD WITHOUT AND WITH CONTRAST INDICATION: Headache. TECHNIQUE: Qqqu-pg-hvxmgq and postcontrast MR venography of the head acquired. The patient received 10 mL of Gadavist for the examination. COMPARISON: CT angiogram of the head dated 01/14/2023. FINDINGS: There is no evidence of venous sinus thrombosis. The left-sided venous drainage system is nondominant. There is attenuation in flow related signal and contrast opacification in the lateral aspects of both transverse venous sinuses, as on prior imaging. Flow related signal and contrast present within the imaged upper internal jugular veins well. MR/MR venography head wo/w con IMPRESSION: No evidence of venous sinus thrombosis. Focal narrowing of the lateral aspects of both transverse venous sinuses, as on recent CT angiography.
== END 2023-06-27 13:16 | disposition home or self-care (01) ==
LOC: HO.MRI 13:15
PROVIDERS: PCP Internal Medicine; Visit Provider Nurse Practitioner Family
DX: G89.29 Other chronic pain (principal); H53.9 Unspecified visual disturbance; R51.9 Headache, unspecified; H57.13 Ocular pain, bilateral; I66.9 Occlusion and stenosis of unspecified cerebral artery; R25.1 Tremor, unspecified
CPT/HCPCS: 70546; 70553; A9585

== ENCOUNTER 2023-08-23 14:16 | Outpatient (AMB) | payer OTHER, SELFPAY ==
--- NOTE | 2023-08-23 14:31 | A.OFFVIS_ITS ---
Intake Vital Signs 08/23/23 14:33 Height 5 ft 1 in Weight 156 lb BMI 29.5 BP 108/74 Blood Pressure Location Rt brachial Position Sitting Intake Visit Reasons: 3month follow up Headaches-Confirmed Intake Note: patient presents for 3 month follow up headaches. Patient states she had me do a CT scan and MRI I'm here for the results. Allergies No Known Allergies Allergy (Verified 08/23/23 14:35) Medication List - Last Reconciled 08/23/23 by QUE Phan acetaminophen (Tylenol) 650 mg PO Q6H PRN albuterol sulfate 90 mcg/actuation 1 inh inhalation QID PRN albuterol sulfate 0.63 mg inhalation QID PRN ibuprofen 200 mg PO Q6H PRN magnesium oxide 400 mg PO BEDTIME 30 days riboflavin (vitamin B2) 400 mg PO DAILY 30 days sumatriptan succinate 50 - 100 mg orally at onset of headache, may repeat in 2 hrs PRN; max 2 tabs per day or 4 tabs/week (may take with Ibuprofen) 30 days HPI HPI Comments History of Present Illness Details 37-yr-old female presents for f/u visit. Pt continues to endorse 14-15 yo she had head/neck imaging and was told she had MS, She never followed up on this as she was young and scared at the time. She is prone to intermittent LUE and bilateral bottom of her feet numbness/tingling- resolves with movement. Denies prolonged episodes of focal weakness/paresthesias, bladder/bowel incontinence. Endorses memory issues and intermittent BUE tremor. Headaches are a bit better. She did not tolerate Sumatriptan. 06/27/23, MR/MR head/brain wo/w con IMPRESSION: 1. Partially empty sella which can be s een in the setting of idiopathic intracranial hypertension. Stenosis of the distal transverse sinuses is better appreciated on prior MRV and CTA. 2. Numerous foci of T2/FLAIR signal abn ormality involving the supratentorial white matter which are nonspecific but are compatible with demyelinating disease given patient reported history of multiple sclerosis. 3. 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 06/27/23, MR/MR venography head wo/w con IMPRESSION: No evidence of venous sinus thrombosis. Focal narrowing of the lateral aspects of both transverse venous sinuses, as on recent CT angiography. [facility] Medical History Asthma Cervical muscle strain Chronic headaches No known health problems Surgical History H/O tubal ligation Family History Father No problems noted. Mother Diabetes Thyroid disease High cholesterol High blood pressure Brother Kidney disease, chronic, end stage on dialysis Social History Alcohol intake: current Alcohol intake frequency: does not drink Patient Tobacco Use Status: Never used Tobacco e-Cigarette/Vaping Use: Never Used Substance Use Type: Marijuana Cognitive needs: No Hearing needs: No Vision needs: No Female Reproductive History Menstrual Age of Menarche: 13 Review of Systems Const All systems reviewed & are unremarkable except as noted in HPI and below Physical Exam Vital Signs: Last Vital Signs BP 108/74 08/23/23 14:33 BMI result Body Mass Index 29.5 Const General: cooperative and no acute distress Orientation/consciousness: patient oriented x3 HEENT Head: Yes normocephalic Resp Effort & Inspection: normal respiratory effort and able to speak in complete sentences Neuro General: patient oriented x3, gait normal and CN's II-XI intact bilaterally Cognition (Neuro): normal cognition Motor exam (neuro): 5/5 motor strength present throughout Psych Appearance: grossly normal Mental Status: mental status grossly normal Speech and movement: Normal speech and movement present Affect: normal affect Attitude: cooperative Thought process: Normal thought process present Thought content: Normal thought content present Insight: Good insight present (Psych) Judgement: Good judgement present (Psych) Assessment & Plan Assessment & Plan (1) Abnormal brain MRI: Code(s): R90.89 - Other abnormal findings on diagnostic imaging of central nervous system (2) Stenosis of intracranial vessel: Code(s): I66.9 - Occlusion and stenosis of unspecified cerebral artery (3) Tremor: Code(s): R25.1 - Tremor, unspecified (4) Paresthesia: Code(s): R20.2 - Paresthesia of skin (5) Chronic headaches: Code(s): R51.9 - Headache, unspecified; G89.29 - Other chronic pain Plan Reviewed brain MRI w/wo and MRV report and images w/ pt- Partially empty sella. No evidence of venous sinus thrombosis. 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 Pt advised to undergo LP for OP and CSF studies to assess for intracranial hypertension, and inflammatory, infectious etiologies of white matter changes on MRI. Pt advised to undergo c-spine and t-spine MRI to assess for any central demyelination/inflamattion. Future considerations: HST, referral to [facility]. ? For acute headache treatment: Stop Sumatriptan 100mg tab. Trial Rizatriptan. Previous acute migraine medication trials: Sumatriptan- not tolerated. Was prescribed Fioricet but never took. Acute migraine medication contraindications: None at this time ? For headache prevention medication: Riboflavin 400mg qam Magnesium 400mg qhs Previous migraine prevention medication trials: None Migraine prevention medication contraindications: None Future considerations: Topiramte. ? F/u w/ review of above and in-clinic in 3 months or sooner prn. Orders: Orders FL guided lumbar puncture LP Today G89.29 - Other chronic pain, H53.9 - Unspecified visual disturbance, I66.9 - Occlusion and stenosis of unspecified cerebral artery, R25.1 - Tremor, unspecified, R51.9 - Headache, unspecified, R90.89 - Other abnormal findings on diagnostic imaging of central nervous system CSF Cell Count w Diff Today G89.29 - Other chronic pain, H53.9 - Unspecified visual disturbance, I66.9 - Occlusion and stenosis of unspecified cerebral artery, R25.1 - Tremor, unspecified, R51.9 - Headache, unspecified, R90.89 - Other abnormal findings on diagnostic imaging of central nervous system CSF Cell Ct w Diff X2 Today G89.29 - Other chronic pain, H53.9 - Unspecified visual disturbance, I66.9 - Occlusion and stenosis of unspecified cerebral artery, R25.1 - Tremor, unspecified, R51.9 - Headache, unspecified, R90.89 - Other abnormal findings on diagnostic imaging of central nervous system CSF Total Protein Today G89.29 - Other chronic pain, H53.9 - Unspecified visual disturbance, I66.9 - Occlusion and stenosis of unspecified cerebral artery, R25.1 - Tremor, unspecified, R51.9 - Headache, unspecified, R90.89 - Other abnormal findings on diagnostic imaging of central nervous system Immunofixation, CSF Today G89. - Other chronic pain, H53.9 - Unspecified visual disturbance, I66.9 - Occlusion and stenosis of unspecified cerebral artery, R25.1 - Tremor, unspecified, R51.9 - Headache, unspecified, R90.89 - Other abnormal findings on diagnostic imaging of central nervous system Lyme by PCR for CSF Today . - Other chronic pain, H53.9 - Unspecified visual disturbance, I66.9 - Occlusion and stenosis of unspecified cerebral artery, R25.1 - Tremor, unspecified, R51.9 - Headache, unspecified, R90.89 - Other abnormal findings on diagnostic imaging of central nervous system Lyme IgG & IgM for CSF Today . - Other chronic pain, H53.9 - Unspecified visual disturbance, I66.9 - Occlusion and stenosis of unspecified cerebral artery, R25.1 - Tremor, unspecified, R51.9 - Headache, unspecified, R90.89 - Other abnormal findings on diagnostic imaging of central nervous system Protein Electrophoresis, CSF Today . - Other chronic pain, H53.9 - Unspecified visual disturbance, I66.9 - Occlusion and stenosis of unspecified cerebral artery, R25.1 - Tremor, unspecified, R51.9 - Headache, unspecified, R90.89 - Other abnormal findings on diagnostic imaging of central nervous system Toxoplasma gondii CSF Today . - Other chronic pain, H53.9 - Unspecified visual disturbance, I66.9 - Occlusion and stenosis of unspecified cerebral artery, R25.1 - Tremor, unspecified, R51.9 - Headache, unspecified, R90.89 - Other abnormal findings on diagnostic imaging of central nervous system VDRL Qualitative CSF Today . - Other chronic pain, H53.9 - Unspecified visual disturbance, I66.9 - Occlusion and stenosis of unspecified cerebral artery, R25.1 - Tremor, unspecified, R51.9 - Headache, unspecified, R90.89 - Oth er abnormal findings on diagnostic imaging of central nervous system WNV EEE CSF IgM Today G89.29 - Other chronic pain, H53.9 - Unspecified visual disturbance, I66.9 - Occlusion and stenosis of unspecified cerebral artery, R25.1 - Tremor, unspecified, R51.9 - Headache, unspecified, R90.89 - Other abnormal findings on diagnostic imaging of central nervous system MR cervical spine wo/w con Today R20.2 - Paresthesia of skin, R25.1 - Tremor, unspecified, R90.89 - Other abnormal findings on diagnostic imaging of central nervous system MR thoracic spine wo/w con Today R20.2 - Paresthesia of skin, R25.1 - Tremor, unspecified, R90.89 - Other abnormal findings on diagnostic imaging of central nervous system CSF Culture + Gram stain Today G89.29 - Other chronic pain, H53.9 - Unspecified visual disturbance, I66.9 - Occlusion and stenosis of unspecified cerebral artery, R25.1 - Tremor, unspecified, R51.9 - Headache, unspecified, R90.89 - Other abnormal findings on diagnostic imaging of central nervous system CSF Glucose Today G89.29 - Other chronic pain, H53.9 - Unspecified visual disturbance, I66.9 - Occlusion and stenosis of unspecified cerebral artery, R25.1 - Tremor, unspecified, R51.9 - Headache, unspecified, R90.89 - Other abnormal findings on diagnostic imaging of central nervous system IgG Index CSF Today G89.29 - Other chronic pain, H53.9 - Unspecified visual disturbance, I66.9 - Occlusion and stenosis of unspecified cerebral artery, R25.1 - Tremor, unspecified, R51.9 - Headache, unspecified, R90.89 - Other abnormal findings on diagnostic imaging of central nervous system Meningitis/Enceph Panel CSF Today G89.29 - Other chronic pain, H53.9 - Unspecified visual disturbance, I66.9 - Occlusion and stenosis of unspecified cerebral artery, R25.1 - Tremor, unspecified, R51.9 - Headache, unspecified, R90.89 - Other abnormal findings on diagnostic imaging of central nervous system Oligoclonal Banding Today G89.29 - Other chronic pain, H53.9 - Unspecified visual disturbance, H54.62 - Unqualified visual loss, left eye, normal vision right eye, I66.9 - Occlusion and stenosis of unspecified cerebral artery, R25.1 - Tremor, unspecified, R51.9 - Headache, unspecified, R90.89 - Other abnormal findings on diagnostic imaging of central nervous system Medications: New rizatriptan max 2 tabs per day or 4 tabs per week 5 - 10 mg (0.5 - 1 x 10 mg) PO Q2H 21 days PRN 12 tabs 3RF migraine headache Discontinued sumatriptan succinate Discontinued Reason: Doctor's Order (0.5 - 1 x 100 mg) 50 - 100 mg orally at onset of headache, may repeat in 2 hrs PRN; max 2 tabs per day or 4 tabs/week (may take with Ibuprofen) 30 days 12 tabs 6RF migraine headache Coding Level of Care Code Est Pt Level 4 (40611) Diagnoses Abnormal brain MRI R90.89 Stenosis of intracranial vessel I66.9 Tremor R25.1 Paresthesia R20.2 Chronic headaches R51.9; G89.29
[2023-08-23 14:33] VITALS: BP 108/74; BMI 29.5
== END 2023-08-23 15:22 | disposition home or self-care (01) ==
PROVIDERS: PCP Internal Medicine; Visit Provider Nurse Practitioner Family
DX: R90.89 Other abnormal findings on diagnostic imaging of central nervous system (principal); I66.9 Occlusion and stenosis of unspecified cerebral artery; R25.1 Tremor, unspecified; R20.2 Paresthesia of skin; R51.9 Headache, unspecified; G89.29 Other chronic pain
CPT/HCPCS: 99214

== ENCOUNTER → 2023-08-23 14:16 | Outpatient (BNVA) | payer OTHER, SELFPAY | PROVIDERS: PCP Internal Medicine; Visit Provider Nurse Practitioner Family | DX: R90.89 Other abnormal findings on diagnostic imaging of central nervous system (principal); I66.9 Occlusion and stenosis of unspecified cerebral artery; R25.1 Tremor, unspecified; R20.2 Paresthesia of skin; G89.29 Other chronic pain; R51.9 Headache, unspecified | CPT/HCPCS: 99212 ==

== ENCOUNTER 2023-09-14 09:04 | Day surgery (SDC) | payer OTHER, SELFPAY ==
--- NOTE | ~2023-09-14 | FL_ITS ---
EXAMINATION: XR LUMBAR PUNCTURE CLINICAL INFORMATION: Likely multiple sclerosis. Headaches. COMPARISON: None available. TECHNIQUE: Following explaining fluoroscopy-guided lumbar puncture procedure, benefits and risk, a written consent was obtained. Patient was placed prone on fluoroscopy table and low back area was imaged. An optimal site was selected and marked on the skin overlying the L4-L5 disc level in left para midline region. The area marked was cleaned and draped in usual sterile manner with 2% chlorhexidine solution. 1% lidocaine was injected puncture site. A 22-gauge spinal needle was then advanced from the skin intrathecally. After removing the stylet and observing fluid return, opening CSF pressure was removed. CSF was then collected in 4 test tubes. Subsequently stylet was reintroduced and needle withdrawn. Complete hemostasis achieved at puncture site. Simple Band-Aid applied at the puncture site. Patient tolerated procedure extremely well. FINDINGS: On the single image obtained of lower lumbar spine needle is positioned at the L4-L5 disc level. Visualized L4, L5 vertebra and the sacrum appears normal. SI joints are normal. Opening CSF pressure measured 36 cm water. Approximately 14 mL of clear CSF fluid was collected in 4 test tubes and sent to lab. FLUOROSCOPY TIME: 15 seconds DOSE AREA PRODUCT: 474.5 uGy-m2 (microgray-meter squared) FL/FL guided lumbar puncture LP IMPRESSION: Successful fluoroscopic-guided lumbar puncture performed without immediate complications.
[2023-09-14 09:39] VITALS: BMI 29.4
[2023-09-14 10:02] LABS: MANUAL DIFF FLAG NO
[2023-09-14 10:05] LABS: Basophils Absolute Auto 0.1 X10*3/uL (0.0-0.2); Basophils Percent Auto 0.6 % (0-2); Eosinophils Absolute Auto 0.2 X10*3/uL (0.0-0.4); Hematocrit 38.2 % (37.0-47.0); Hemoglobin 12.9 g/dl (12.0-16.0); Imm Gran Abs Auto 0.02 X10*3/uL (0.00-0.03); Imm Gran Pct Auto 0.2 % (0.0-0.4); Lymphocytes Absolute Auto 1.9 X10*3/uL (1.2-4.9); Lymphocytes Percent Auto 22.7 % (20-40); Mean Corpuscular HGB Conc 33.8 g/dl (31.0-35.0); Mean Corpuscular Hemoglobin 31.7 pg (27.0-33.0); Mean Corpuscular Volume 93.9 fL (80.0-98.0); Mean Platelet Volume 10.4 fL (9.4-12.3); Monocytes Absolute Auto 0.5 X10*3/uL (0.1-1.2); Neutrophils Absolute Auto 5.7 x10*3/uL (2.0-8.3); Neutrophils Percent Auto 68.5 % (45-73); Platelet Count 174 X10*3/uL (160-400); Red Blood Count 4.07 X10*6/uL (4.20-5.50); Red Cell Distribution Width 13.3 % (11.0-16.0); White Blood Count 8.4 X10*3/uL (4.8-10.8)
[2023-09-14 10:10] LABS: INTERNATIONAL NORM RATIO 0.9 (0.9-1.1); Prothrombin Time 11.3 SEC (11.1-13.3)
[2023-09-14 10:12] LABS: Partial Thromboplastin Time 26.5 SEC (26.0-36.4)
[2023-09-14 11:30] VITALS: BP 125/77; PULSE 66; RESP 16; TEMP 36.9; O2SAT 100
[2023-09-14 12:22] LABS: CSF Appearance Clear, Colorless; CSF Tube # 2
[2023-09-14 12:30] VITALS: BP 126/65; PULSE 65; RESP 16; O2SAT 100
[2023-09-14 12:32] LABS: Glucose CSF 60 mg/dL; Total Protein CSF 30.2 mg/dL (15-45)
[2023-09-14 13:22] VITALS: BP 129/60; PULSE 60; RESP 16; O2SAT 100
[2023-09-14] MEDS: Acetaminophen 325 MG TABLET 650 MG PO (13:22)
[2023-09-14 13:31] LABS: Appearance CSF CLEAR; CSF Monos 20 %; CSF Tube # 1; Color CSF COLORLESS; Lymphocytes CSF 80 %; Red Blood Cell CSF 81 MM*3; White Blood Cell CSF 2 MM*3
[2023-09-14 13:32] LABS: Appearance CSF CLEAR; CSF Tube # 4; Color CSF COLORLESS; Red Blood Cell CSF 0 MM*3; White Blood Cell CSF 0 MM*3
[2023-09-14 14:18] LABS: Cryptococcus neoformans/gattii Not Detected (Not Detect.); Enterovirus Not Detected (Not Detect.); Escherichia coli K1 Not Detected (Not Detect.); Haemophilus influenzae Not Detected (Not Detect.); Herpes simplex virus 1 Not Detected (Not Detect.); Herpes simplex virus 2 Not Detected (Not Detect.); Human herpesvirus 6 Not Detected (Not Detect.); Human parechovirus Not Detected (Not Detect.); Listeria monocytogenes Not Detected (Not Detect.); Neisseria meningitidis Not Detected (Not Detect.); Streptococcus agalactiae Not Detected (Not Detect.); Streptococcus pneumoniae Not Detected (Not Detect.); Varicella zoster virus Not Detected (Not Detect.)
[2023-09-14 14:29] VITALS: BP 120/66; PULSE 64; RESP 16; O2SAT 99
[2023-09-14 15:30] VITALS: BP 122/68; PULSE 62; RESP 16; TEMP 36.3; O2SAT 99
[2023-09-15 14:12] LABS: Lyme (B. burgdorferi) PCR NOT DETECTED (NOT DETECTED)
[2023-09-15 17:27] LABS: Oligoclonal Serum Yes
[2023-09-17 15:29] LABS: VDRL Qualitative CSF Nonreactive (Nonreactive)
[2023-09-18 23:33] LABS: Albumin 3.9 g/dL (3.6-5.1); Albumin, CSF 15.6 mg/dL (8.0-42.0); IgG 1380 mg/dL (600-1640); IgG Synthesis Rate -6.2 mg/24 h (-9.9-3.3); IgG, CSF 2.3 mg/dL (0.8-7.7)
[2023-09-20 20:34] LABS: Lyme IgG CSF Immunoblot NO BANDS DETECTED; Lyme IgM CSF Immunoblot NO BANDS DETECTED
[2023-09-21 18:09] LABS: Toxoplasma gondii IgG - CSF <0.90; Toxoplasma gondii IgM CSF <0.80
[2023-09-21 21:43] LABS: Oligoclonal Banding Absent (Absent)
[2023-10-01 10:55] LABS: Total Protein, CSF 27
[2023-10-01 10:56] LABS: Alpha-1-Globulin,CSF 6.1; Alpha-2-Globulin,CSF 7.5
[2023-10-01 10:57] LABS: Gamma Globulin 9.4
== END 2023-09-14 15:35 | disposition home or self-care (01) ==
PROVIDERS: Physician Assistant Surgical; Radiology Diagnostic Radiology; PCP Internal Medicine; Visit Provider Nurse Practitioner Family
PROC: 009U3ZZ Drainage of Spinal Canal, Percutaneous Approach (ICD-10-PCS; CPT 62270; principal; 2023-09-14 11:00)
DX: R90.89 Other abnormal findings on diagnostic imaging of central nervous system (principal); R51.9 Headache, unspecified; G89.29 Other chronic pain; H53.9 Unspecified visual disturbance; I66.9 Occlusion and stenosis of unspecified cerebral artery; M54.2 Cervicalgia; R20.2 Paresthesia of skin; R25.1 Tremor, unspecified; J45.909 Unspecified asthma, uncomplicated; Z79.1 Long term (current) use of non-steroidal anti-inflammatories (NSAID); Z79.899 Other long term (current) drug therapy; Z98.51 Tubal ligation status; F12.90 Cannabis use, unspecified, uncomplicated
CPT/HCPCS: 36415; 62328; 82042; 82945; 83916; 84157; 84166; 85025; 85610; 85730; 86335; 86592; 86617; 86777; 86778; 87015; 87070; 87205; 87476; 87483; 89051

== ENCOUNTER → 2023-09-14 11:00 | Outpatient (BNV) | payer OTHER, SELFPAY | PROVIDERS: PCP Internal Medicine; Visit Provider Radiology Diagnostic Radiology | DX: R51.9 Headache, unspecified (principal) | CPT/HCPCS: 62328 ==

== ENCOUNTER 2023-10-12 13:08 | Outpatient (REF) | payer OTHER, SELFPAY ==
--- NOTE | ~2023-10-12 | MR_ITS ---
EXAMINATION: MRI cervical spine with and without contrast MRI thoracic spine with and without contrast INDICATION: Follow-up MRI on 06/27/2023, query multiple sclerosis spots, status post spinal puncture with high-pressure COMPARISON: None available. TECHNIQUE: Multiplanar multisequence MR imaging of the cervical and thoracic spine obtained without and following the administration of 6.5 mL of Gadavist without complication. FINDINGS: No abnormal acute bone marrow signal or enhancement. The visualized spinal cord is normal in caliber. No abnormal cord signal or enhancement. Cervical spine: The visualized posterior fossa is unremarkable. Straightening of the normal cervical lordosis. Trace retrolisthesis at C5-6 and C6-7. The vertebral body heights are preserved. Multilevel disc desiccation without significant disc height loss. The paravertebral soft tissues are unremarkable. The visualized intrathoracic and intra-abdominal structures are grossly within normal limits. C2-3: Tiny left uncovertebral hypertrophy. No significant spinal canal or neural foraminal narrowing. C3-4: No significant spinal canal or neural foraminal narrowing. C4-5: Tiny disc osteophyte complex. No significant spinal canal or neural foraminal narrowing. C5-6: Disc osteophyte complex. No significant spinal canal or neural foraminal narrowing. C6-7: Disc osteophyte complex. No significant spinal canal or neural foraminal narrowing. C7-T1: No significant spinal canal or neural foraminal narrowing. Thoracic spine: There is elevation of the normal thoracic kyphosis. The vertebral body heights are preserved. Multilevel disc desiccation without significant disc height loss. No significant disc herniation, spinal canal stenosis, or neural foraminal narrowing. MR/MR cervical spine wo/w con IMPRESSION: No evidence of demyelinating disease in the cervical or thoracic spinal cord. Mild multilevel degenerative changes predominantly in the cervical spine without significant spinal canal or neural foraminal narrowing.
[2023-10-12] MEDS: gadobutroL 7.5 ML VIAL IVPUSH (14:21)
== END 2023-10-12 13:09 | disposition home or self-care (01) ==
LOC: HO.MRI 13:08
PROVIDERS: PCP Internal Medicine; Visit Provider Nurse Practitioner Family
DX: R25.1 Tremor, unspecified (principal); R20.2 Paresthesia of skin; R90.89 Other abnormal findings on diagnostic imaging of central nervous system
CPT/HCPCS: 72156; 72157; A9585

== ENCOUNTER 2024-03-17 10:07 | Outpatient (AMB) | payer OTHER, SELFPAY ==
--- NOTE | 2024-03-17 10:07 | A.OFFVIS_ITS ---
Intake Visit Reasons: follow up Ok per kori Allergies No Known Allergies Allergy (Verified 03/17/24 10:07) Medication List - Last Reconciled 03/17/24 by QUE Phan acetaminophen (Tylenol) 650 mg PO Q6H PRN albuterol sulfate 90 mcg/actuation 1 inh inhalation QID PRN albuterol sulfate 0.63 mg inhalation QID PRN ibuprofen 200 mg PO Q6H PRN magnesium oxide 400 mg PO BEDTIME 30 days riboflavin (vitamin B2) 400 mg PO DAILY 30 days rizatriptan 5 - 10 mg (0.5 - 1 x 10 mg) PO Q2H PRN 21 days HPI Comments Details: 38-yr-old female presents for f/u [facility] visit via [employer] Pt had a recent eye exam d/t she started noticing increased episodes of blurry vision a/w headache, which she thought was d/t needing her glasses prescription to be updated. The eye exam revealed bilateral mild papilledema, with red desaturation test 10/10 OD, 5/10 OS. She states now she may have a headache a few days in a row and then none for a few days. Unsure of exact duration- may last at least 30 min but can last longer. Describes the headache as Bilateral retro-orbital pressure pain a/w blurred vision, photophobia, watery eyes. Once was a/w brief total loss of vision- everything became dark. Denies tinnitus, red eyes, facial weakness. Does not notice if any position helps/worsens. The headaches do come on when just sitting and watching TV. Baseline headcahe characteristics: Prodrome symptoms: None Aura: Sees white spots before headcahe onset x's 10-15 min. Headache: Moderate to Severe, Pressure in usually bilateral occipital or top of head and back of her eyes a/w Photophobia, phonophobia, allodynia, some dizziness/lightheadedness, brain fog, tiredness, watery eyes. Postdrome: Residual tiredness Work-up: 10/12/23, MR/MR cervical and thoracic spine wo/w con IMPRESSION: 1. No evidence of demyelinating disease in the cervical or thoracic spinal cord. 2. Mild multilevel degenerative changes predominantly in the cervical spine without significant spinal canal or neural foraminal narrowing. 09/14/23, LP: Opening CSF pressure measured 36 cm water. CSF studies: Normal. CSF OG bands- absent. 06/27/23, MR/MR head/brain wo/w con IMPRESSION: 1. Partially empty sella which can be seen in the setting ofidiopathic intracranial hypertension. Stenosis of the distal transverse sinuses is better appreciated on prior MRV and CTA. 2. Numerous foci of T2/FLAIR signal abnormality involving the supratentorial white matter which are nonspecific but are compatible with demyelinating disease given patient reported history of multiple sclerosis. 3. 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 06/27/23, MR/MR venography head wo/w conIMPRESSION: No evidence of venous sinus thrombosis. Focal narrowing of the lateral aspects of both transverse venous sinuses, as on recent CT angiography. [facility] Medical History (Reviewed 05/07/23 @ 15:10 by Princess Franz [facility]) Asthma Cervical muscle strain Chronic headaches No known health problems Surgical History H/O tubal ligation Family History Father No problems noted. Mother Diabetes Thyroid disease High cholesterol High blood pressure Brother Kidney disease, chronic, end stage on dialysis Social History Alcohol intake: current Alcohol intake frequency: does not drink Patient Tobacco Use Status: Never used Tobacco e-Cigarette/Vaping Use: Never Used Substance Use Type: Marijuana Cognitive needs: No Hearing needs: No Vision needs: No Female Reproductive History Menstrual Age of Menarche: 13 Physical Exam Const General: cooperative and no acute distress Orientation/consciousness: patient oriented x3 Resp Effort & Inspection: normal respiratory effort and able to speak in complete sentences Neuro General: patient oriented x3 Cognition (Neuro): normal cognition Psych Appearance: grossly normal Mental Status: mental status grossly normal Speech and movement: Normal speech and movement present Affect: normal affect Attitude: cooperative Telehealth Telehealth Telehealth Platform: Telephone Location of provider rendering services: practice address Location of patient: address on file Patient Identification confirmed using: Name, : Yes Telehealth method: video Patient verbally consented to treatment: Yes Patient verbally consented to billing insurance company: Yes Patient informed of any privacy concerns related to visit: Yes Minutes spent on Phone/Video with Pt.: 23 Assessment & Plan Assessment & Plan (1) Stenosis of intracranial vessel: Code(s): I66.9 - Occlusion and stenosis of unspecified cerebral artery Category: Medical (2) IIH (idiopathic intracranial hypertension): Code(s): G93.2 - Benign intracranial hypertension Category: Medical (3) Migraine with aura: Code(s): G43.109 - Migraine with aura, not intractable, without status migrainosus Category: Medical (4) White matter abnormality on MRI of brain: Code(s): R90.82 - White matter disease, unspecified Category: Medical Plan Reviewed brain MRI w/wo and MRV report and images w/ pt- Partially empty sella. No evidence of venous sinus thrombosis. 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 Reviewed MRI cervical and thoracic spine wo/w- No evidence of demyelinating disease, Mild multilevel cervical degenerative changes w/o significant spinal canal or neural foraminal narrowing. Reviewed LP results: Normal CSF studies, including absence of OG bands. Opening CSF pressure elevated at 36 cm water. Start Acetazolamide 125mg po tid x's 3 days, then increase to 250mg tid. Will request neuroendovascular consult to assess if focal narrowing of bilateral venous sinuses is contributing to intracranial hypertension. Pt advised to undergo Visual Evoked Potential. Pt advised to undergo f/u brain MRI w/ orbits w/wo to assess status of white matter changes and vision changes. Future considerations- Request [facility] clinic consult. ? For acute headache treatment: Rizatriptan prn. Previous acute migraine medication trials: Sumatriptan- not tolerated. Was prescribed Fioricet but never took. Acute migraine medication contraindications: None at this time ? For headache prevention medication: Riboflavin 400mg qam Magnesium 400mg qhs Previous migraine prevention medication trials: None Migraine prevention medication contraindications: None Future considerations: Topiramate. ? F/u w/ review of above and in-clinic in 3 months or sooner prn. Orders: Referrals Vascular Neurology Referral I66.9 - Occlusion and stenosis of unspecified cerebral artery, R90.89 - Other abnormal findings on diagnostic imaging of central nervous system, G93.2 - Benign intracranial hypertension Medications: New acetazolamide 125 - 250 mg (1 - 2 x 125 mg) PO TID 180 tabs 3RF 30 days Scribe Plan - Not visible on output: Reviewed possible medication side effects, including but not limited to drowsiness, dizziness. Coding Level of Care Code Tele Est Pt Level 4 (10515) Diagnoses Stenosis of intracranial vessel I66.9 IIH (idiopathic intracranial hypertension) G93.2 Migraine with aura G43.109 White matter abnormality on MRI of brain R90.82
== END 2024-03-17 15:57 | disposition home or self-care (01) ==
LOC: HO.HSMS 10:07
PROVIDERS: PCP Internal Medicine; Visit Provider Nurse Practitioner Family
DX: I66.9 Occlusion and stenosis of unspecified cerebral artery (principal); G93.2 Benign intracranial hypertension; G43.109 Migraine with aura, not intractable, without status migrainosus; R90.82 White matter disease, unspecified
CPT/HCPCS: 99214

== ENCOUNTER 2024-03-17 10:07 | Outpatient (REF) | payer OTHER, SELFPAY | END 2024-03-17 10:08 | disposition home or self-care (01) | LOC: HO.LAB 10:07 | PROVIDERS: PCP Internal Medicine; Visit Provider Nurse Practitioner Family | DX: Z13.89 Encounter for screening for other disorder (principal) ==

== ENCOUNTER 2024-03-18 14:24 | Outpatient (REF) | payer OTHER, SELFPAY ==
[2024-03-18 14:43] LABS: MANUAL DIFF FLAG NO
[2024-03-18 15:28] LABS: Basophils Absolute Auto 0.1 X10*3/uL (0.0-0.2); Basophils Percent Auto 0.5 % (0-2); Eosinophils Absolute Auto 0.2 X10*3/uL (0.0-0.4); Eosinophils Percent Auto 2.4 % (0-4); Hematocrit 39.6 % (37.0-47.0); Hemoglobin 13.4 g/dl (12.0-16.0); Imm Gran Abs Auto 0.03 X10*3/uL (0.00-0.03); Imm Gran Pct Auto 0.3 % (0.0-0.4); Lymphocytes Absolute Auto 2.7 X10*3/uL (1.2-4.9); Lymphocytes Percent Auto 29.5 % (20-40); Mean Corpuscular HGB Conc 33.8 g/dl (31.0-35.0); Mean Corpuscular Hemoglobin 31.5 pg (27.0-33.0); Mean Corpuscular Volume 93.2 fL (80.0-98.0); Mean Platelet Volume 10.9 fL (9.4-12.3); Monocytes Absolute Auto 0.6 X10*3/uL (0.1-1.2); Monocytes Percent Auto 6.1 % (2-11); Neutrophils Absolute Auto 5.6 x10*3/uL (2.0-8.3); Neutrophils Percent Auto 61.2 % (45-73); Platelet Count 195 X10*3/uL (160-400); Red Blood Count 4.25 X10*6/uL (4.20-5.50); Red Cell Distribution Width 13.2 % (11.0-16.0); White Blood Count 9.2 X10*3/uL (4.8-10.8)
[2024-03-18 16:06] LABS: Alanine Aminotransferase 15 U/L (0-31); Alkaline Phosphatase 46 U/L (39-117); Anion Gap 11 (12-20); Aspartate Amino Transferase 16 U/L (5-31); Bilirubin Total 0.3 mg/dL (0.0-1.0); Blood Urea Nitrogen 15 mg/dL (9-16); Calcium 9.3 mg/dL (8.4-10.2); Carbon Dioxide 26 mmol/L (22-29); Chloride 105 mmol/L (96-108); Estimated Glomerular Filt Rate > 60; Glucose Random 108 mg/dL (60-115); Potassium 4.2 mmol/L (3.3-5.1); Sodium 138 mmol/L (135-145); Total Protein 7.4 g/dL (6.5-8.0)
[2024-03-18 16:15] LABS: Rheumatoid Factor < 13.0 IU/mL (<15.0)
[2024-03-18 16:18] LABS: Erythrocyte Sedimentation Rate 7 MM/HR (0-20)
[2024-03-19 18:19] LABS: CRP High Sensitivity 0.4 mg/L
[2024-03-20 15:23] LABS: Anti Nuclear Antibody Screen NEGATIVE (NEGATIVE)
== END 2024-03-18 14:25 | disposition home or self-care (01) ==
LOC: HO.LAB 14:24
PROVIDERS: PCP Nurse Practitioner Family; Visit Provider Nurse Practitioner Family
DX: G93.2 Benign intracranial hypertension (principal); R20.2 Paresthesia of skin; R25.1 Tremor, unspecified
CPT/HCPCS: 36415; 80053; 85025; 85652; 86038; 86141; 86431

== ENCOUNTER 2024-04-25 10:13 | Outpatient (REF) | payer OTHER, SELFPAY ==
--- NOTE | ~2024-04-25 | MR_ITS ---
EXAMINATION: MR BRAIN WITHOUT AND WITH CONTRAST CLINICAL INFORMATION: Monitor white matter changes. MS protocol. Patient complaining of frontal, posterior, and bilateral temporal headaches. 38-year-old female. COMPARISON: 06/27/2023 MRI and MRV brain. 09/14/2023 fluoroscopy guided lumbar puncture. TECHNIQUE: Multiplanar multisequence MR imaging of the brain was done prior to and following intravenous administration of 7.5 mL of Gadavist. Exam performed on a 1.5 Glenna unit. FINDINGS: There is no diffusion restriction. There is no intracranial hemorrhage, acute infarction, mass effect, or edema. Ventricles, sulci, and cisterns are normal in size and configuration for patient age. No shift of midline. No abnormal hemosiderin deposition is identified. There are numerous bilateral scattered foci of punctate and minimally confluent white matter T2 hyperintensity in the supratentorial periventricular, subcortical, and hemispheric deep white matter. There is mild pericallosal marginal involvement, however no definite callosal lesion or callosal septal hyperintensity is evident. No distribution or morphology specific to demyelinating disease. There is no callosal atrophy. Midline structures appear normally formed. Partial empty sella with concave superior border of the pituitary. Cerebellar tonsils are appropriately located. Major flow voids are preserved within the skull base. The transverse sinuses appear somewhat small. Otherwise, major cortical and dural venous sinuses appear normal. Mildly prominent Meckel's caves are present. After the administration of contrast, no pathologic intra or extra-axial contrast enhancement is noted. There is again noted a small DVA with capillary telangiectasia in the left inferior risa. The globes and orbits demonstrate probable mild increased CSF volume and the optic nerve sheath heads, although this is difficult to quantify due to motion. This could be artifactual. No definite signal alterations identified in the optic nerves. The superior ophthalmic veins are patent and normal in size. Mild to moderate mucosal thickening present in the left greater than right ethmoid sinuses, bilateral sphenoid sinuses, and lesser degree in the dependent maxillary sinuses. No air-fluid levels. The mastoids and tympanic cavities are normally aerated. Extracranial soft tissues demonstrate mildly prominent adenoidal soft tissues. No suspicious bone marrow changes are evident. Atlantoaxial joint is normal. MR/MR head/brain wo/w con IMPRESSION: 1. No evidence of intracranial hemorrhage, acute infarction, mass effect, edema, or pathologic contrast enhancement. 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 2. Moderate subcortical hemispheric deep white matter T2 hyperintense foci, with some pericallosal marginal involvement but no definite callosal or callosal septal involvement. This remains nonspecific but could represent demyelinating disease versus nonspecific microangiopathic changes. No enhancing white matter lesions. Overall degree of T2 hyperintense abnormalities appears unchanged. 3. Suspect idiopathic intracranial hypertension on the basis of partial empty sella, mildly enlarged Meckel's caves, increased CSF in the optic nerve sheath heads, and small transverse sinuses. Opening pressure from prior fluoroscopy guided lumbar puncture 09/14/2023 was 36, abnormal.
[2024-04-25] MEDS: gadobutroL 7.5 ML VIAL IVPUSH (11:26)
== END 2024-04-25 10:14 | disposition home or self-care (01) ==
LOC: HO.MRI 10:13
PROVIDERS: Visit Provider Nurse Practitioner Family
DX: G93.2 Benign intracranial hypertension (principal); I66.9 Occlusion and stenosis of unspecified cerebral artery; H57.13 Ocular pain, bilateral; H53.9 Unspecified visual disturbance; R90.82 White matter disease, unspecified; R90.89 Other abnormal findings on diagnostic imaging of central nervous system
CPT/HCPCS: 70553; A9585

== ENCOUNTER → 2024-04-25 10:14 | Outpatient (BNV) | payer OTHER, SELFPAY | PROVIDERS: Visit Provider Radiology Diagnostic Radiology | DX: R51.9 Headache, unspecified (principal) | CPT/HCPCS: 70553 ==

== ENCOUNTER 2024-05-02 11:11 | Outpatient (REF) | payer OTHER, SELFPAY ==
--- NOTE | ~2024-05-02 | MR_ITS ---
EXAMINATION: MR ORBITS WITHOUT AND WITH CONTRAST CLINICAL INFORMATION: Bilateral ocular pain, possible history of demyelinating disease, likely pseudotumor cerebri. COMPARISON: MRI brain with and without 04/25/2024; MRI brain with MRV of the brain 07/15/2023. TECHNIQUE: Multiplanar multisequence MRI of the brain and orbits was done prior to and following the intravenous administration of 7.5 mL of Gadavist FINDINGS: Globes and Lacrimal Glands: Normal, symmetric. Periorbital/Preseptal soft tissues: Normal but limited from susceptibility artifact. Retrobulbar Fat: On the T1 nonfat saturated noncontrast sequences, coronal and axial, there are subtle regions of low T1 signal abutting the optic nerve sheaths in the intraconal retrobulbar fat. These regions appear to enhance very subtly. Findings are not entirely specific but suggest ocular pseudotumor. (Series 8, image 11; series 10, images 14 and 13) Extraocular Muscles/Optic Nerves: Symmetric with normal signal. No definite optic nerve signal alteration identified. There appears to be increased CSF present within the optic nerve sheath heads, findings likely related to intracranial hypertension (series 9, image 15 of 22) no abnormal enhancement of the optic nerves or sheaths. Extraconal and Intraconal Spaces: See above. Otherwise no masses or enlarged vessels. Orbital Apices and Cavernous Sinuses: Normal apices; cavernous sinuses are symmetric and enhance normally. Meckel's caves are mildly enlarged on both sides right greater than left. Sella/Suprasellar/Optic Apparatus: Suprasellar structures and optic apparatus demonstrate no masses, signal alterations, or abnormal enhancement. Partial empty sella present with concave border of the pituitary. Basil cisterns, brain stem and other visualized intracranial structures: No diffusion restriction. No intracranial hemorrhage. No mass effect or edema. Again noted is a small enhancing DVA in the left inferior risa, with a questionable associated capillary telangiectasia. Imaged IACs appear normal. There are numerous bilateral scattered foci of punctate and minimally confluent white matter T2 hyperintensity in the supratentorial periventricular, subcortical, and hemispheric deep white matter. No distribution or morphology specific to demyelinating disease. These findings are unchanged. Osseous structures, paranasal sinuses, and visualized extracranial soft tissues: Normal in signal. Mildly prominent adenoidal soft tissues. Mild left greater than right ethmoid sinus mucosal thickening. MR/MR orbits face neck wo/w con IMPRESSION: 1. Subtle infiltrative changes with subtle enhancement of the retrobulbar fat suggesting ocular pseudotumor. No definite signal alteration in the optic nerves or chiasm. 2. Increased CSF within the optic nerve sheath heads, with additional findings suggesting idiopathic intracranial hypertension. 3. Similar white matter foci in the supratentorial region, nonspecific but possibly in keeping with demyelination. The pattern is overall nonspecific. Overall no change. No abnormal white matter enhancing foci. 4. 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 5. No intracranial hemorrhage, acute infarction, mass effect, or edema.
== END 2024-05-02 11:12 | disposition home or self-care (01) ==
LOC: HO.MRI 11:11
PROVIDERS: Visit Provider Nurse Practitioner Family
DX: H57.13 Ocular pain, bilateral (principal); H53.9 Unspecified visual disturbance; R90.82 White matter disease, unspecified; I66.9 Occlusion and stenosis of unspecified cerebral artery; G93.2 Benign intracranial hypertension
CPT/HCPCS: 70543

== ENCOUNTER → 2024-05-02 11:11 | Outpatient (BNV) | payer OTHER, SELFPAY | PROVIDERS: Visit Provider Radiology Diagnostic Radiology | DX: Z00.00 Encounter for general adult medical examination without abnormal findings (principal) | CPT/HCPCS: 70543 ==

== ENCOUNTER 2024-08-06 07:51 | Outpatient (AMB) | payer OTHER, SELFPAY ==
[2024-08-06 08:06] VITALS: BP 114/82; PULSE 68; O2SAT 97
--- NOTE | 2024-08-06 08:06 | MHC.PC.OV ---
Vital Signs 08/06/24 08:06 Height 5 ft 1 in Weight 159 lb 0.8 oz BMI 30.0 BP 114/82 Blood Pressure Location Rt brachial Position Sitting Pulse 68 Pulse Source Pulse Oximeter Pulse Oximetry (%) 97 Oxygen Delivery Method Room Air Intake Visit Reasons: annual exam Sack Cleaner Required: No Allergies No Known Allergies Allergy (Verified 08/06/24 08:20) Medication List - Last Reconciled 08/06/24 by Mae Murguia PA-C acetazolamide 125 - 250 mg (1 - 2 x 125 mg) PO TID 30 days albuterol sulfate 90 mcg/actuation 1 inh inhalation QID PRN albuterol sulfate 0.63 mg inhalation QID PRN magnesium oxide 400 mg PO BEDTIME 30 days riboflavin (vitamin B2) 400 mg PO DAILY 30 days rizatriptan 5 - 10 mg (0.5 - 1 x 10 mg) PO Q2H PRN 21 days Tobacco use date assessed: 08/06/24 Dental Screening Dental Screen Date: 08/06/24 Did you have a dental visit in the last 12 months?: No Did you have a dental problem in the last 6 months where you did not have access to dental care?: No Was dental information given to patient?: Patient has dentist HPI annual exam HPI Details 38-year-old female with past medical history of asthma and idiopathic intracranial hypertension last seen by nurse practitioner coming in for annual visit.? In review of the notes, patient [place] [facility] last seen 03/31/2024 patient was started on acetazolamide and referred to neuro endovascular.?Also advised patient to use rizatriptan as needed for headaches and take riboflavin and magnesium for headache prevention. Patient states she does regularly follow with a cake wrapper and was last seen in 05/2024 and had her Pap smear done. She does also mention she is able to fall asleep at night but often wakes up in the middle of the night unable to fall back asleep. She mentions her anxiety contributes to this she does have anxiety throughout the day as well. She was previously taking melatonin 5 mg which is working but however has stopped working. [facility] Medical History Chronic headaches Cervical muscle strain Asthma No known health problems Surgical History H/O tubal ligation Family History Father No problems noted. Mother Diabetes Thyroid disease High cholesterol High blood pressure Brother Kidney disease, chronic, end stage on dialysis Social History Alcohol intake: current Alcohol intake frequency: does not drink Patient Tobacco Use Status: Never used Tobacco e-Cigarette/Vaping Use: Never Used Substance Use Type: Marijuana Cognitive needs: No Hearing needs: No Vision needs: No Female Reproductive History Menstrual Age of Menarche: 13 control method: none Total pregnancies: 5 Ab induced: 3 History of abnormal pap smear: No Questionnaire PHQ-9 Over the last 2 weeks, how often have you been bothered by any of the following problems? 1. Little interest or pleasure in doing things: not at all 2. Feeling down, depressed, or hopeless: not at all 3. Trouble falling or staying asleep, or sleeping too much: nearly every day 4. Feeling tired or having little energy: not at all 5. Poor appetite or overeating: not at all 6. Feeling bad about yourself - or that you are a failure or have let yourself or your family down: not at all 7. Trouble concentrating on things, such as reading the newspaper or watching television: not at all 8. Moving or speaking so slowly that other people could have noticed. Or the opposite - being so fidgety or restless that you have been moving around a lot more than usual: not at all 9. Thoughts that you would be better off or of hurting yourself in some way: not at all Total score: 3 Depression Screening Interpretation: Negative Depression Screening Done: Yes 94533 - PHQ-9 Billing: Yes Source: Developed by Drs. Patrice Lacy, Asuncion Herman, Ha Villa and colleagues, with an educational sophie from [employer] assistant. Thrive Questionnaire Date Thrive assessed: 08/04/24 I am a: Patient What is your living situation today?: I have a steady place to live Within the past 12 months, did the food you bought not last and you didn't have the money to get more?: Never true Within the past 12 months, did you worry whether your food would run out before you got money to buy more?: Never true Do you have trouble paying for medicines?: No Do you have trouble getting transportation to medical appointments?: No Do you have trouble paying your heating and electricity bill?: Yes Do you have trouble taking care of your child, family member or friend?: No Do you have trouble with day-to-day activities such as bathing, preparing meals, shopping, managing finances, etc.?: No Are you currently unemployed and looking for a job?: No Are you interested in more education?: Yes Please select the resources that you would like help with: Food and Utilities Currently or been in a relationship where the following occur: No concerns reported THRIVE Score: 1 AUDIT C Alcohol Use Questionnaire (AUDIT-C) 1. How often do you have a drink containing alcohol?: Monthly or less 2. How many drinks containing alcohol do you have on a typical day when you are drinking?: 1 or 2 3. How often do you have six or more drinks on one occasion?: Less than monthly Total Score: 2 BAILEY-7 AMB Questionnaire BAILEY-7 Date BAILEY - 7 assessed: 08/06/24 Feeling nervous, anxious, or on edge: 0 = Not at all Not being able to stop or control worryin = Not at all Worrying too much about different things: 0 = Not at all Trouble relaxin = Not at all Being so restless that it is hard to sit still: 0 = Not at all Becoming easily annoyed or irritable: 0 = Not at all Feeling afraid as if something awful might happen: 0 = Not at all Total BAILEY-7 score (0-4 normal; 5-9 mild; 10-14 moderate; 15-21 severe): 0 Source: Developed by Drs. Patrice Lacy, Asuncion Herman, Ha Villa and colleagues, with an educational sophie from [employer] assistant. BAILEY-7 Assessment Billing BAILEY-7 Assessment Tool: BAILEY-7 Assessment 62124 Review of Systems Const Denies body aches, Denies fatigue, Denies fever(s), Denies frequent falls, Reports headache(s) (occasional) and Denies weakness Eyes Reports no additional complaints, Denies change in vision and Reports requires corrective lenses ENT Reports Normal hearing present, Denies dysphagia, Denies dizziness, Denies facial pain, Reports headache(s) (occasional), Denies nasal congestion and Denies odynophagia Card Denies chest pain, Denies syncope, Denies irregular heart rhythm, Denies leg edema, Denies lightheadedness and Denies dyspnea Resp Denies cough and Denies dyspnea GI Denies constipation, Denies dysphagia, Denies dyspepsia, Denies diarrhea, Denies nausea, Denies odynophagia and Denies vomiting Denies urinary frequency, Denies dysuria, Denies urinary hesitancy and Denies urinary urgency Musc Denies back pain and Denies myalgias Skin/Breast Reports system reviewed and no additional complaints, except as documented Neuro Reports Normal hearing present, Denies dizziness, Denies syncope, Denies frequent falls, Reports headache(s) (occasional) and Denies weakness Psych Reports no additional complaints Endo Denies fatigue Physical exam (Primary Care) Vital Signs: Last Vital Signs Pulse 68 08/06/24 08:06 BP 114/82 08/06/24 08:06 Pulse Ox 97 08/06/24 08:06 Oxygen Delivery Method Room Air 08/06/24 08:06 BMI result Body Mass Index 30.0 Tobacco/Smoking Status: Tobacco use Status Tobacco use date assessed 08/06/24 08/06/24 08:14 Patient Tobacco Use Status Never used Tobacco 08/06/24 08:14 e-Cigarette/Vaping Use Never Used 08/06/24 08:14 PHQ-9: PHQ-9 Score PHQ-9: Total score 3 08/06/24 10:52 Depression Screening Interpretation: Negative Thrive Assessment: Date of Thrive Assessment Date Thrive assessed 08/04/24 08/06/24 08:14 Currently or been in a relationship where the following occur: No concerns reported Const General: cooperative, healthy appearing, comfortable and no acute distress Orientation/consciousness: patient oriented x3 HENMT Head: Yes normocephalic Ears: hearing grossly normal bilaterally, external ears normal, TM's normal bilaterally and EAC's normal General nose exam: Normal external nose present Face and sinus: Yes normal facial exam and Yes sinuses nontender Mouth: Normal oral and palatal mucosa present and tongue normal Throat: Yes posterior oropharynx normal Eyes General: appearance normal, both eyes and all related structures Conjunctivae: conjunctivae normal Pupils: Equal, round and reactive pupils present EOM: EOMs intact bilaterally and No Nystagmus present Neck Neck: Yes normal visual inspection, Yes full ROM and Yes no lymphadenopathy Chest Chest palpation & inspection: normal inspection of the chest Resp Effort & Inspection: normal respiratory effort Auscultation: clear to auscultation bilaterally, no crackles, no rales, no rhonchi, no wheezes and breath sounds present Cardio Rate: regular rate Rhythm: regular rhythm Peripheral pulses: radial pulses present and dorsalis pedis present GI Inspection: Yes normal to inspection and No Abdominal wall edema Palpation (GI): Soft to palpation, not firm and nontender Auscultation: normal bowel sounds Rectal Exam - Female: deferred General: Yes no CVA tenderness Back/Spine/Pelvis Back: no CVA tenderness Skin General skin exam: no rashes or lesions noted Neuro General: patient oriented x3 Cranial nerves: Yes Equal, round and reactive pupils present, Yes Midline tongue present, Yes Normal hearing present, Yes Ability to bilaterally elevate shoulders present and No Nystagmus present Gait exam (Neuro): Normal gait present Extrem General: Yes normal to inspection, Yes full ROM, No no pedal edema and No edema Psych Speech and movement: Normal speech and movement present Affect: normal affect Insight: Good insight present (Psych) Judgement: Good judgement present (Psych) Immunizations tetanus-diphtheria toxoids-Td 2 Lf unit-2 Lf unit/0.5 mL IM suspension Performing Provider: Mae Murguia PA-C Performing Location: [facility] Administered by: MELVA Guillermo on 08/06/24 08:43 Dose Route Admin Location Dispensed Lot Number Expiration Date NDC Clerical Administrator 0.5 mL IM Left Deltoid 0.5 mL [id number] 01/05/25 [address]-8 [employer] VIS Given Date VIS Provided VIS Publication Date 08/06/24 Single Vaccine 21 Eligibility Eligibility Date Funding Source Not [facility] Eligible 08/06/24 State funds Assessment and Plan Assessment & Plan (1) Annual physical exam: Code(s): Z00.00 - Encounter for general adult medical examination without abnormal findings Plan: Patient is up-to-date on all recommended routine screenings and vaccinations for her age. Did order for updated blood work. Tetanus shot updated today (2) IIH (idiopathic intracranial hypertension): Code(s): G93.2 - Benign intracranial hypertension Plan: Patient follows with Neurology for this diagnosis. Continue on acetazolamide, magnesium, riboflavin, and rizatriptan as needed. Blood pressure normal on today's exam. (3) Asthma: Code(s): J45.909 - Unspecified asthma, uncomplicated Plan: Patient rarely uses her inhaler and feels her asthma is well managed. Continue to avoid triggers such as allergens and smoke. She does not have any nighttime awakenings with shortness of breaths (4) Insomnia: Code(s): G47.00 - Insomnia, unspecified Plan: Patient has been struggling with insomnia and would like to take something as needed for sleep. Recommend using hydroxyzine as needed at nighttime. We will follow up in 3 months for further evaluation. (5) Anxiety: Code(s): F41.9 - Anxiety disorder, unspecified Plan: Patient states she does struggle with anxiety and this is what often keeps her up at night. We will trial hydroxyzine at night for both sleep and anxiety to be taken either as needed or consistently. Follow up in 3 months Plan This note was constructed using voice recognition software. While every effort has been made to ensure accuracy and truck technician, still areas may have been included sometimes these areas may affect the content or meeting of the given symptoms. Total time spent caring for the patient today was 35 minutes. This includes time spent before the visit reviewing the chart, time spent during the visit, and time spent after the visit and documentation. Orders: Orders TSH reflex Free T4 Today Z00.00 - Encounter for general adult medical examination without abnormal findings Vitamin B12 and Folate Today Z00.00 - Encounter for general adult medical examination without abnormal findings Lipid Panel Today Z00.00 - Encounter for general adult medical examination without abnormal findings UA CC w/rflx Micro + Cult Today Z00.00 - Encounter for general adult medical examination without abnormal findings Complete Blood Count Auto Diff Today Z00.00 - Encounter for general adult medical examination without abnormal findings Comprehensive Met. Panel Today Z00.00 - Encounter for general adult medical examination without abnormal findings Free T4 (Free Thyroxine) Today Z00.00 - Encounter for general adult medical examination without abnormal findings Vitamin D 25-OH (D2 and D3) Today Z00.00 - Encounter for general adult medical examination without abnormal findings Td State Immunization Today Z23 - Encounter for immunization Medications: New hydroxyzine HCl 25 mg PO BEDTIME 30 tabs 0RF Coding Level of Care Code Est Pt Level 3 (92284) New Pt Prev Care 18-39yr([id number] Diagnoses Annual physical exam Z00.00 IIH (idiopathic intracranial hypertension) G93.2 Asthma J45.909 Insomnia G47.00 Anxiety F41.9 Additional Codes BAILEY-7 Assessment Billing - BAILEY-7 Assessment Tool: BAILEY-7 Assessment [id number] ([id number])
== END 2024-08-06 08:50 | disposition home or self-care (01) ==
DX: Z00.00 Encounter for general adult medical examination without abnormal findings (principal); G93.2 Benign intracranial hypertension; J45.909 Unspecified asthma, uncomplicated; Z23 Encounter for immunization; G47.00 Insomnia, unspecified; F41.9 Anxiety disorder, unspecified
CPT/HCPCS: 90471; 90714; 99213; 99385

== ENCOUNTER 2024-08-06 08:58 | Outpatient (REF) | payer OTHER, SELFPAY ==
[2024-08-06 09:14] LABS: MANUAL DIFF FLAG NO
[2024-08-06 09:34] LABS: Basophils Absolute Auto 0.1 X10*3/uL (0.0-0.2); Basophils Percent Auto 0.7 % (0-2); Eosinophils Absolute Auto 0.1 X10*3/uL (0.0-0.4); Hematocrit 43.2 % (37.0-47.0); Hemoglobin 14.5 g/dl (12.0-16.0); Imm Gran Abs Auto 0.03 X10*3/uL (0.00-0.03); Imm Gran Pct Auto 0.4 % (0.0-0.4); Lymphocytes Absolute Auto 1.5 X10*3/uL (1.2-4.9); Lymphocytes Percent Auto 20.6 % (20-40); Mean Corpuscular HGB Conc 33.6 g/dl (31.0-35.0); Mean Corpuscular Hemoglobin 31.6 pg (27.0-33.0); Mean Corpuscular Volume 94.1 fL (80.0-98.0); Mean Platelet Volume 10.8 fL (9.4-12.3); Monocytes Absolute Auto 0.6 X10*3/uL (0.1-1.2); Monocytes Percent Auto 8.8 % (2-11); Neutrophils Absolute Auto 4.8 x10*3/uL (2.0-8.3); Neutrophils Percent Auto 67.5 % (45-73); Platelet Count 192 X10*3/uL (160-400); Red Blood Count 4.59 X10*6/uL (4.20-5.50); Red Cell Distribution Width 13.2 % (11.0-16.0); White Blood Count 7.1 X10*3/uL (4.8-10.8)
[2024-08-06 10:29] LABS: Alanine Aminotransferase 16 U/L (0-31); Albumin Level 4.2 g/dL (3.5-5.0); Alkaline Phosphatase 56 U/L (39-117); Anion Gap 9 (12-20); Aspartate Amino Transferase 17 U/L (5-31); Bilirubin Total 0.6 mg/dL (0.0-1.0); Blood Urea Nitrogen 17 mg/dL (9-16); Calcium 9.4 mg/dL (8.4-10.2); Carbon Dioxide 24 mmol/L (22-29); Chloride 111 mmol/L (96-108); Cholesterol 211 mg/dL (<200); Estimated Glomerular Filt Rate > 60; Glucose Random 90 mg/dL (60-115); HDL Cholesterol 47 mg/dL (>40); LDL Cholesterol Calculated 141 mg/dL (<100); Potassium 4.3 mmol/L (3.3-5.1); Sodium 140 mmol/L (135-145); Total Protein 7.7 g/dL (6.5-8.0); Triglycerides 115 mg/dL (<150)
[2024-08-06 10:45] LABS: Free T4 (Free Thyroxine) 0.94 ng/dL (0.71-1.85); TSH reflex Free T4 0.58 uIU/mL (0.32-4.0)
[2024-08-06 10:49] LABS: Folate 12.9 ng/mL (> or = 4.0); Vitamin B12 727 pg/mL (200-900)
[2024-08-06 11:36] LABS: Appearance Urine Clear; Color Urine Dark Yellow; Glucose Urine UA Negative (Negative); Leukocyte Esterase Urine Negative (Negative); Nitrite Urine Negative (Negative); PH 5.5 (5.0-9.0); Specific Gravity - Urine >= 1.030 (1.005-1.025); Urine Blood Negative (Negative); Urine Ketones Negative (Negative); Urine Protein Negative (Neg-Trace)
[2024-08-11 16:32] LABS: Vitamin D 25-OH, D2 <4 ng/mL; Vitamin D 25-OH, D3 18 ng/mL; Vitamin D 25-OH, Total 18 ng/mL (30-100)
== END 2024-08-06 08:59 | disposition home or self-care (01) ==
LOC: HO.LAB 08:58
PROVIDERS: PCP Internal Medicine
DX: Z00.00 Encounter for general adult medical examination without abnormal findings (principal)
CPT/HCPCS: 36415; 80053; 80061; 81003; 82306; 82607; 82746; 84439; 84443; 85025

== ENCOUNTER 2024-09-04 13:47 | Outpatient (AMB) | payer OTHER, SELFPAY ==
[2024-09-04 14:14] VITALS: BP 118/70; BMI 30.6
--- NOTE | 2024-09-04 14:14 | A.OFFVIS_ITS ---
Vital Signs 09/04/24 14:14 Height 5 ft 1 in Weight 162 lb BMI 30.6 BP 118/70 Intake Visit Reasons: VP PATIENT annual exam Information Interpreted: clinical only [employer]: [employer] Present Allergies No Known Allergies Allergy (Verified 09/04/24 14:15) Medication List - Last Reconciled 09/04/24 by Ashleigh Salazar CNM albuterol sulfate 90 mcg/actuation 1 inh inhalation QID PRN albuterol sulfate 0.63 mg inhalation QID PRN cholecalciferol (vitamin D3) 25 mcg PO DAILY hydroxyzine HCl 25 mg PO BEDTIME magnesium oxide 400 mg PO BEDTIME 30 days Is last menstrual period known: Yes Last menstrual period: 08/27/24 HPI HPI VP PATIENT annual exam: Details: Patient is here for rn gynecology annual exam. She is not having any real rn gynecology concerns. Her partner was in long term then got out then went back to long term so she just resumed sexually active with him again she is not really worried about infection but accepts testing though she does not think she needs blood work today.. Her only health issues is that she kept getting that headaches and they dis covered that she was having a buildup of pressure in her brain with fluid and she needed procedures were they were taken fluid out of her spine. Now she is using some medications and she does not need to take a very often just about 4 times a week and a half a tablet and she is wearing special glasses that blocked the light and glare and they help too. 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 FOR[facility]LY [facility] Medical History Chronic headaches Cervical muscle strain Asthma No known health problems Surgical History H/O tubal ligation Family History Father No problems noted. Mother Diabetes Thyroid disease High cholesterol High blood pressure Brother Kidney disease, chronic, end stage on dialysis Social History Alcohol intake: current Alcohol intake frequency: does not drink Patient Tobacco Use Status: Never used Tobacco e-Cigarette/Vaping Use: Never Used Substance Use Type: Marijuana Cognitive needs: No Hearing needs: No Vision needs: No Female Reproductive History Menstrual Age of Menarche: 13 Duration of menses: 3-5 days Date of last menstrual period: 08/27/24 control method: permanent sterilization Total pregnancies: 2 Full term: 2 Date of last pap smear: 10/12/21 (negative) Physical Exam Vital Signs: Last Vital Signs BP 118/70 09/04/24 14:14 BMI result Body Mass Index 30.6 Const General: healthy appearing, comfortable, no acute distress, well developed and alert Nutritional Appearance: average body habitus Orientation/consciousness: patient oriented x3 Limitations: no limitations HEENT Head: Yes normocephalic Neck Neck: Yes normal visual inspection Chest Chest palpation & inspection: normal inspection of the chest Breast/axilla inspection: normal inspection of the breasts and normal inspection of the axillae Breast/axilla palpation: normal palpation of the breasts and normal palpation of the axillae Resp Effort & Inspection: normal respiratory effort GI Inspection: Yes normal to inspection, No Abdominal wall edema and No distended Palpation (GI): Soft to palpation and nontender Other: External exam within normal limits vagina and moist cervix multiparous with multiple nabothian cysts clear scant discharge. Cervix long thick closed mobile nontender uterus anteverted nontender. General: Yes bladder normal to palpation External Female Exam: normal external appearance and normal appearance of the urethra Speculum Exam - Vagina: normal appearance of the vagina, normal palpation and normal vaginal discharge Speculum Exam - Cervix: normal appearance of the cervix, normal palpation and nontender Bimanual exam- vagina & uterus: normal bimanual exam, normal palpation, uterine size normal, bladder normal to palpation, consistency normal, normal palpation, uterine mobility normal, uterine shape normal, No Cervical tenderness present, non-tender and no cervical motion tenderness Bimanual Exam- Adnexa, other: normal adnexae, no masses, normal and No adnexal tenderness Neuro General: patient oriented x3 Results Reviewed Results Reviewed: Name: Leidy Servin Age/Sex: 35/F Attending: Pepe Rucker MD : 1985 Submitted by: Pepe Rucker MD Copies to: MR #: [id number] Status: DEP REF Collected: 10/11/21 Location: .LAB Received: 10/12/21 Interpretation Satisfactory for evaluation. Coccobacilli consistent with shift in vaginal alan. Negative for intraepithelial lesion or malignancy. HPV mRNA E6/E7: NOT DETECTED This assay detects E6/E7 viral messenger RNA (mRNA) from 14 high-risk HPV types (16, 18, 31, 33, 35, 39, 45, 51, 52, 56, 58, 59, 66, 68) HPV testing performed by [facility], [place], [place]. See reference laboratory portion of the EMR for entire report. Clinical Information LMP: 08/2021 Previous PAP test: Unknown date, WNL Material Received ThinPrep- Cervical Electronically Signed By: KATHLEEN Mendiola (ASCP) 10/19/21 1053 The Pap Test is a screening procedure with the inherent possibility of both false negative and false positive results. Results should be interpreted in the context of historic and current clinical findings. Reliability of the Pap Test is enhanced by performing the test on a regular repetitive basis. Patient: Leidy Servin Age/Sex: 35/F MR#: [id number] Page 1 of 1 Assessment & Plan Assessment & Plan (1) Migraine with aura: Code(s): G43.109 - Migraine with aura, not intractable, without status migrainosus Category: Medical (2) IIH (idiopathic intracranial hypertension): Code(s): G93.2 - Benign intracranial hypertension Category: Medical (3) Screen for sexually transmitted diseases: Code(s): Z11.3 - Encounter for screening for infections with a predominantly sexual mode of transmission Category: Medical (4) Cervical cancer screening: Comment: No history of abnormal Paps, last Pap & cotesting Negative in 2020, next with HPV cotesting due 2025 Code(s): Z12.4 - Encounter for screening for malignant neoplasm of cervix Category: Medical (5) Well woman exam: Code(s): Z01.419 - Encounter for gynecological examination (general) (routine) without abnormal findings Category: Medical Plan -----Discussed in this visit the following: healthy balanced diet, regular and consistent exercise, getting recommended health screens, doing the best she can for her particular health concerns, kegel exercises, pap smear screening and followup recommendations, mammography screening and SBE, normal changes in cycles in her life stage--- . Her next Pap with Co testing is due in 2025. She has no history of abnormals in her last 1 was negative in 2020. She was not worried about STIs but accepted vaginal testing declined blood work testing.. She has a tubes tied so this no concerns about at this stage. She says she is feeling much better since they figured out what was going on with her brain and fluid buildup and the medication and the glasses are helping her with her headaches. RTC 1 year. Coding Level of Care Code Est Pt Prev Care 18-39y([id number]) Diagnoses Migraine with aura G43.109 IIH (idiopathic intracranial hypertension) G93.2 Screen for sexually transmitted diseases Z11.3 Cervical cancer screening Z12.4 Well woman exam Z01.419
== END 2024-09-04 14:53 | disposition home or self-care (01) ==
PROVIDERS: PCP Internal Medicine; Visit Provider Advanced Practice Midwife
DX: Z01.419 Encounter for gynecological examination (general) (routine) without abnormal findings (principal); G43.109 Migraine with aura, not intractable, without status migrainosus; G93.2 Benign intracranial hypertension; Z11.3 Encounter for screening for infections with a predominantly sexual mode of transmission
CPT/HCPCS: 99395

== ENCOUNTER 2024-09-04 13:47 | Outpatient (REF) | payer OTHER, SELFPAY ==
[2024-09-04 18:10] LABS: Bacterial Vaginosis PCR POSITIVE (Negative); Candida Group PCR NOT DETECTED (Not Detect); Candida glab krusei PCR NOT DETECTED (Not Detect); Trichomonas vaginalis PCR NOT DETECTED (Not Detect)
[2024-09-04 18:40] LABS: CT PCR NOT DETECTED (Not Detect.); NG PCR NOT DETECTED (Not Detect.)
== END 2024-09-04 13:48 | disposition home or self-care (01) ==
LOC: HO.LAB 13:47
PROVIDERS: PCP Internal Medicine; Visit Provider Advanced Practice Midwife
DX: N89.8 Other specified noninflammatory disorders of vagina (principal); Z20.2 Contact with and (suspected) exposure to infections with a predominantly sexual mode of transmission; Z01.419 Encounter for gynecological examination (general) (routine) without abnormal findings; G43.109 Migraine with aura, not intractable, without status migrainosus; G93.2 Benign intracranial hypertension; Z11.3 Encounter for screening for infections with a predominantly sexual mode of transmission; Z12.4 Encounter for screening for malignant neoplasm of cervix
CPT/HCPCS: 0352U; 87491; 87591; 99395

== ENCOUNTER 2024-09-15 10:20 | Outpatient (AMB) | payer OTHER, SELFPAY ==
--- NOTE | 2024-09-15 10:21 | MHC.OFFVIS ---
Vital Signs 09/15/24 10:22 Height 5 ft 1 in Weight 164 lb BMI 31.0 Intake Visit Reasons: Follow up Intake Note: Patient presents for follow up. patient migraines are better ever since starting the medication. Allergies No Known Allergies Allergy (Verified 09/15/24 10:25) HPI Comments Details: 38-yr-old female presents for f/u of headache. Since the last visit, pt underwent f/u brain and face/orbits MRI, which showed stable non-specific T2 white matter hyperintensities, partial empty sella, mildly enlarged Meckel's caves, increased CSF in the optic nerve sheath heads, and small transverse sinuses, and subtle infiltrative changes with subtle enhancement of the retrobulbar fat suggesting ocular pseudotumor. She had VEP, whcih was normal. Pt was advised to start on Acetazolamide 250mg tid- which she has been consistently taking. She states she is tolerating this well, just notices frequent urination. Here headcahes are much better. She can have pressure sensation in back of neck and occipital region. May hear her pulse in the back of her head- notices mostly when upright. Headaches are not more or less likely in upright versus supine position. She is using the Rizatriptan less than once a week w/ good effect. States her vision is stable with her glasses. We did put in an order for neuroendovascular consult at [facility] [place], however pt does not think she had this appt yet. 05/02/2024, MR/MR orbits face neck wo/w con IMPRESSION: 1. Subtle infiltrative changes with subtle enhancement of the retrobulbar fat suggesting ocular pseudotumor. No definite signal alteration in the optic nerves or chiasm. 2. Increased CSF within the optic nerve sheath heads, with additional findings suggesting idiopathic intracranial hypertension. 3. Similar white matter foci in the supratentorial region, nonspecific but possibly in keeping with demyelination. The pattern is overall nonspecific. Overall no change. No abnormal white matter enhancing foci. 4. 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 5. No intracranial hemorrhage, acute infarction, mass effect, or edema. 04/25/2024, MR/MR head/brain wo/w con IMPRESSION: 1. No evidence of intracranial hemorrhage, acute infarction, mass effect, edema, or pathologic contrast enhancement. 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 2. Moderate subcortical hemispheric deep white matter T2 hyperintense foci, with some pericallosal marginal involvement but no definite callosal or callosal septal involvement. This remains nonspecific but could represent demyelinating disease versus nonspecific microangiopathic changes. No enhancing white matter lesions. Overall degree of T2 hyperintense abnormalities appears unchanged. 3. Suspect idiopathic intracranial hypertension on the basis of partial empty sella, mildly enlarged Meckel's caves, increased CSF in the optic nerve sheath heads, and small transverse sinuses. Opening pressure from prior fluoroscopy guided lumbar puncture 09/14/2023 was 36, abnormal. Previous visit, 03/17/2024: Pt had a recent eye exam d/t she started noticing increased episodes of blurry vision a/w headache, which she thought was d/t needing her glasses prescription to be updated. The eye exam revealed bilateral mild papilledema, with red desaturation test 10/10 OD, 5/10 OS. She states now she may have a headache a few days in a row and then none for a few days. Unsure of exact duration- may last at least 30 min but can last longer. Describes the headache as Bilateral retro-orbital pressure pain a/w blurred vision, photophobia, watery eyes. Once was a/w brief total loss of vision- everything became dark. Denies tinnitus, red eyes, facial weakness. Does not notice if any position helps/worsens. The headaches do come on when just sitting and watching TV. Baseline headcahe characteristics: Prodrome symptoms: None Aura: Sees white spots before headcahe onset x's 10-15 min. Headache: Moderate to Severe, Pressure in usually bilateral occipital or top of head and back of her eyes a/w Photophobia, phonophobia, allodynia, some dizziness/lightheadedness, brain fog, tiredness, watery eyes. Postdrome: Residual tiredness Work-up: 10/12/23, MR/MR cervical and thoracic spine wo/w con IMPRESSION: 1. No evidence of demyelinating disease in the cervical or thoracic spinal cord. 2. Mild multilevel degenerative changes predominantly in the cervical spine without significant spinal canal or neural foraminal narrowing. 09/14/23, LP: Opening CSF pressure measured 36 cm water. CSF studies: Normal. CSF OG bands- absent. 06/27/23, MR/MR head/brain wo/w con IMPRESSION: 1. Partially empty sella which can be seen in the setting ofidiopathic intracranial hypertension. Stenosis of the distal transverse sinuses is better appreciated on prior MRV and CTA. 2. Numerous foci of T2/FLAIR signal abnormality involving the supratentorial white matter which are nonspecific but are compatible with demyelinating disease given patient reported history of multiple sclerosis. 3. 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 06/27/23, MR/MR venography head wo/w conIMPRESSION: No evidence of venous sinus thrombosis. Focal narrowing of the lateral aspects of both transverse venous sinuses, as on recent CT angiography. PFSH Medical History Chronic headaches Cervical muscle strain Asthma No known health problems Surgical History H/O tubal ligation Family History Father No problems noted. Mother Diabetes Thyroid disease High cholesterol High blood pressure Brother Kidney disease, chronic, end stage on dialysis Social History Alcohol intake: current Alcohol intake frequency: does not drink Patient Tobacco Use Status: Never used Tobacco e-Cigarette/Vaping Use: Never Used Substance Use Type: Marijuana Cognitive needs: No Hearing needs: No Vision needs: No Female Reproductive History Menstrual Age of Menarche: 13 Physical Exam Vital Signs: BMI result Body Mass Index 31.0 Const General: cooperative and no acute distress Orientation/consciousness: patient oriented x3 Resp Effort & Inspection: normal respiratory effort and able to speak in complete sentences Neuro General: patient oriented x3 Cranial nerves: Yes CN's II-XII intact bilaterally Cognition (Neuro): normal cognition Gait exam (Neuro): Normal gait present Motor exam (neuro): 5/5 motor strength present throughout Psych Appearance: grossly normal Mental Status: mental status grossly normal Speech and movement: Normal speech and movement present Affect: normal affect Attitude: cooperative Assessment & Plan Assessment & Plan (1) IIH (idiopathic intracranial hypertension): Code(s): G93.2 - Benign intracranial hypertension Category: Medical (2) Stenosis of intracranial vessel: Code(s): I66.9 - Occlusion and stenosis of unspecified cerebral artery Category: Medical (3) Migraine with aura: Code(s): G43.109 - Migraine with aura, not intractable, without status migrainosus Category: Medical (4) White matter abnormality on MRI of brain: Code(s): R90.82 - White matter disease, unspecified Category: Medical Plan Reviewed f/u f/u brain and face/orbits MRI images and reports w/ pt, which showed stable non-specific T2 white matter hyperintensities, partial empty sella, mildly enlarged Meckel's caves, increased CSF in the optic nerve sheath heads, and small transverse sinuses, and subtle infiltrative changes with subtle enhancement of the retrobulbar fat suggesting ocular pseudotumor. Reviewed Bilateral VEP- normal. Reviewed recent labs- CBC/CMP WNL. Pt has mild HLD. Pt advised to optimize CV risk factors- BP is normotensive, encouraged pt to increase regular low impact physical activity, and optimize diet through increasing fruit/vegetable, whole grain, and lean protein intake. Previous work-up: Brain MRI w/wo and MRV- Partially empty sella. No evidence of venous sinus thrombosis. 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 MRI cervical and thoracic spine wo/w- No evidence of demyelinating disease, Mild multilevel cervical degenerative changes w/o significant spinal canal or neural foraminal narrowing. LP results: Normal CSF studies, including absence of OG bands. Opening CSF pressure elevated at 36 cm water. For IIH: Continue Acetazolamide 250mg tid. Will f/u on request for neuroendovascular consult to assess if focal narrowing of bilateral venous sinuses is contributing to intracranial hypertension. F/u eye exam as scheduled. For acute headache treatment: Rizatriptan prn. Previous acute migraine medication trials: Sumatriptan- not tolerated. Was prescribed Fioricet but never took. Acute migraine medication contraindications: None at this time ? For headache prevention medication: Riboflavin 400mg qam Magnesium 400mg qhs Previous migraine prevention medication trials: None Migraine prevention medication contraindications: None Future considerations: Topiramate. ? F/u w/ review of above and in-clinic in 3 months or sooner prn. Orders: Orders Complete Blood Count Auto Diff 3 Months G89.29 - Other chronic pain, G93.2 - Benign intracranial hypertension, R20.2 - Paresthesia of skin, R51.9 - Headache, unspecified Comprehensive Met. Panel 3 Months G89.29 - Other chronic pain, G93.2 - Benign intracranial hypertension, R20.2 - Paresthesia of skin, R51.9 - Headache, unspecified Medications: Refilled riboflavin (vitamin B2) 400 mg PO DAILY 30 days 30 tabs 6RF acetazolamide 125 - 250 mg (1 - 2 x 125 mg) PO TID 30 days 180 tabs 3RF rizatriptan max 2 tabs per day or 4 tabs per week 5 - 10 mg (0.5 - 1 x 10 mg) PO Q2H 21 days PRN 12 tabs 3RF migraine headache Coding Level of Care Code Est Pt Level 4 (80573) Diagnoses IIH (idiopathic intracranial hypertension) G93.2 Stenosis of intracranial vessel I66.9 Migraine with aura G43.109 White matter abnormality on MRI of brain R90.82
[2024-09-15 10:22] VITALS: BMI 31.0
== END 2024-09-15 11:13 | disposition home or self-care (01) ==
PROVIDERS: PCP Internal Medicine; Visit Provider Nurse Practitioner Family
DX: G93.2 Benign intracranial hypertension (principal); I66.9 Occlusion and stenosis of unspecified cerebral artery; G43.109 Migraine with aura, not intractable, without status migrainosus; R90.82 White matter disease, unspecified
CPT/HCPCS: 99214

== ENCOUNTER → 2024-09-15 10:20 | Outpatient (BNVA) | payer OTHER, SELFPAY | PROVIDERS: PCP Internal Medicine; Visit Provider Nurse Practitioner Family | DX: G93.2 Benign intracranial hypertension (principal); G43.109 Migraine with aura, not intractable, without status migrainosus; I66.9 Occlusion and stenosis of unspecified cerebral artery; R90.82 White matter disease, unspecified | CPT/HCPCS: 99212 ==

== ENCOUNTER 2024-09-25 12:14 | Emergency (ER) | payer OTHER, SELFPAY ==
--- NOTE | ~2024-09-25 | XR_ITS ---
EXAMINATION: XR LUMBOSACRAL SPINE CLINICAL INFORMATION: Pain COMPARISON: CT abdomen and pelvis 10/12/2020 TECHNIQUE: Three views of the lumbosacral spine. FINDINGS: The lumbar vertebral bodies demonstrate normal height. Overall sagittal alignment is maintained. The intervertebral disc heights are normal. Tiny marginal endplate osteophytes at multiple levels The posterior elements appear intact. The paraspinous soft tissues appear unremarkable. Bilateral sacroiliac joints are intact. XR/XR lumbar spine 2-3V IMPRESSION: No radiographic evidence of acute abnormality involving the lumbar spine. Electronically signed by: Ruben Lange MD 09/25/2024 02:03 PM EDT
[2024-09-25 12:45] VITALS: BP 107/48; PULSE 77; RESP 16; TEMP 36.6; O2SAT 100; BMI 31.5
--- NOTE | 2024-09-25 12:45 | ED_ITS ---
HPI - General Adult General Chief complaint: Back Pain/Injury Stated complaint: lower back pain for 3 days Time Seen by Provider: 09/25/24 15:48 Source: patient Mode of arrival: ambulatory Limitations: no limitations History of Present Illness ED Provider: CELSO FLOREZ PA-C HPI narrative: 38 year old female with pmhx significant for asthma, migraines with aura, and IIH presents to the ED today for evaluation of low back pain x3 days. Reports bilateral low back pain with intermittent radiation down left thigh. Has been taking OTC tylenol and motrin with minimal relief. States that while at work this morning, the pain became too severe prompting her to come to the ED for evaluation. No hx of similar. Denies any blunt injury or trauma. She states she works as a [employer] with regular heavy lifting. Denies history of IV drug use. Denies previous spinal surgery. Denies fever, chills, nausea or vomiting, abdominal or flank pain, dysuria, hematuria, vaginal discharge, saddle anesthe [place], bowel or bladder incontinence or retention. Related Data Home Medications ?Medication ?Instructions ?Recorded ?Confirmed albuterol sulfate 0.63 mg/3 mL 0.63 mg inhalation QID PRN 12/11/22 09/04/24 solution for nebulization Previous Rx's ?Medication ?Instructions ?Recorded albuterol sulfate 90 mcg/actuation 1 inh inhalation QID PRN shortness 10/30/21 aerosol inhaler of breath or wheezing #8.5 grams magnesium oxide 400 mg (241.3 mg 400 mg PO BEDTIME 30 days #30 tabs 05/23/24 magnesium) tablet hydroxyzine HCl 25 mg tablet 25 mg PO BEDTIME #30 tabs 08/06/24 cholecalciferol (vitamin D3) 25 25 mcg PO DAILY #30 caps 08/11/24 mcg (1,000 unit) capsule acetazolamide 125 mg tablet 125 - 250 mg (1 - 2 x 125 mg) PO 09/15/24 TID 30 days #180 tabs riboflavin (vitamin B2) 400 mg 400 mg PO DAILY 30 days #30 tabs 09/15/24 tablet rizatriptan 10 mg tablet 5 - 10 mg (0.5 - 1 x 10 mg) PO Q2H 09/15/24 PRN migraine headache 21 days #12 tabs cyclobenzaprine 5 mg tablet 5 mg PO Q8H #7 tabs 09/25/24 lidocaine 5 % topical patch 1 patch topical DAILY #15 ea 09/25/24 (Lidoderm) Allergies Allergy/AdvReac Type Severity Reaction Status Date / Time No Known Allergies Allergy Verified 09/25/24 12:47 Review of Systems Review of Systems: Constitutional: No fever, chills, fatigue, night sweats, weight changes ENT/Mouth: No ear pain, hearing loss, nasal congestion, sinus pain, rhinorrhea, sore throat Eyes: No eye pain, swelling, redness, vision changes, discharge Cardio: No chest pain, palpitations, FONTAINE, orthopnea, peripheral edema Pulm: No SOB, cough, sputum, wheezing, dyspnea, hemoptysis GI: No nausea, vomiting, hematemesis, abdominal pain, diarrhea, constipation, hematochezia, melena : No irregular bleeding, dysuria, frequency, urgency, hesitancy, hematuria, flank pain, urinary flow changes, urinary incontinence or retention MSK: +back pain, No neck pain, joint pain, myalgias Skin: No lesions, rashes Neuro: No weakness, numbness, paresthesias, LOC, dizziness, headache All other systems reviewed and are negative. [facility], LAT[facility] Past Medical History Attestation statement: The following information was validated with the patient. Source: old records reviewed and nursing notes reviewed Medical History Chronic headaches Cervical muscle strain Asthma No known health problems Surgical History H/O tubal ligation Family History Family History Father No problems noted. Mother Diabetes Thyroid disease High cholesterol High blood pressure Brother Kidney disease, chronic, end stage on dialysis Social History Social History Alcohol intake: current Alcohol intake frequency: does not drink Patient Tobacco Use Status: Never used Tobacco e-Cigarette/Vaping Use: Never Used Substance Use Type: Marijuana Advance Directives: No Advance Directives Information Provided: No Cognitive needs: No Hearing needs: No Vision needs: No Physical Exam ED Vital Signs: Vital Signs - 24 hr 09/25/24 12:45 09/25/24 16:31 Temperature 97.9 F 98.2 F Pulse Rate 77 65 Respiratory Rate 16 18 Blood Pressure 107/48 L 135/67 Pulse Oximetry 100 98 Oxygen Delivery Method Room Air Room Air BMI result Body Mass Index 31.5 vital signs stable, afebrile General: Well appearing, in no acute distress. Skin: Warm, dry, intact. No rashes or lesions. Head: Normocephalic, atraumatic. EENT: Hearing is intact b/l. PERRLA. EOM intact. Moist mucous membranes.? Lungs: Normal respiratory effort without accessory muscle use. CTA bilaterally Abdomen: Soft, non-tender, non-distended. No rebound tenderness or guarding. no cvat. Back: No midline spinous or paraspinal tenderness. No step off deformity. +b/l lumbar paraspinal mm tenderness Ext: Upper and lower extremities atraumatic, without tenderness, deformity, swelling or erythema. Full ROM throughout. Neuro: AOx3. Normal speech. Strength 5/5 intact throughout. No saddle anesthesia . Sensation intact to light touch. NV intact distally. Reflexes 2+ bilaterally. Ambulating with steady gait. Psych: Appropriate mood and affect. Responds appropriately to questions. Course Course Course Narrative: RME, this is a rapid medical exam performed by Vignesh Coffman please refer to primary provider for complete H&P- 38-year-old female presents for evaluation of lower back pain for the last 3 days. Reports minimal improvement with ibuprofen and Tylenol. Denies any specific injury but endorses working as a [employer] and doing heavy lifting. ? Plan for urinalysis, U preg and lumbar x-ray Reevaluation(s) Reevaluation #1: 9414 -- urine without infection. urine negative. xray lumbar spine without fracture. Patient was treated with Toradol, lidocaine patch and Flexeril in ED. Will send these home with her for pain control for suspected lumbar strain. As she received Flexeril in the ED, her boyfriend will be driving her home today. Patient has remained stable throughout ED visit today. Discussed worrisome signs and symptoms and when to return to the ED. All questions answered at this time. Patient is agreeable with disposition and stable for discharge. Medical Decision Making Medical Decision Making MDM Narrative: 38 year old female with pmhx significant for asthma, migraines with aura, and IIH presents to the ED today for evaluation of low back pain x3 days. Vital signs stable. Afebrile. She is nontoxic-appearing and in no acute distress. On exam, there is no midline spinous tenderness or step-off deformity. There is bilateral lumbar paraspinal muscle tenderness to palpation without palpable mass, fluctuance or warmth. Positive straight leg raise on right. Ambulating with steady gait. Neurovascularly intact distally. Sensation and strength intact throughout. No CVAT bilaterally. Differential diagnosis includes MSK sprain/strain, fracture, subluxation, disc herniation, sciatica, arthritis. Lower suspicion for UTI, nephrolithiasis, renal colic, hydronephrosis. Presentation not consistent with cord compression, cauda equina, Guillain-Garrison, epidural abscess. Plan for UA, imaging, pain control and re-evaluation. Differential Diagnosis Differential Diagnoses: The differential diagnosis associated with the presentation includes as above Admission/Observation Not indicated. Lab Data MDM Lab Attestation statement: I reviewed the patient's lab results. as above. Labs: Lab Results 09/25/24 Range/Units 14:57 Urine Color Yellow Urine Appearance Clear Urine pH 8.5 (5.0-9.0) Ur Specific [place] 1.020 (1.005-1.025) Urine Protein Negative (Neg-Trace) mg/dL Urine Glucose (UA) Negative (Negative) mg/dL Urine Ketones Trace (Negative) mg/dL Urine Blood Negative (Negative) Urine Nitrite Negative (Negative) Ur Leukocyte Esterase Negative (Negative) Urine RBC 0-2 (0-2) /HPF Urine WBC 0-5 (0-5) /HPF Ur Squamous Epith Cells 11-20 (0-2) /HPF Urine Bacteria 1+ (None Seen) Hyaline Casts 0-2 (0-2) /LPF Urine Test NEGATIVE (NEGATIVE) Independent Interpretation I performed an independent interpretation of an: Plain X-Ray Interpretation: xr lumbar spine without fracture, agree with radiologist's interpretation. Radiology Impression Discussion of test interpretation with radiology: I have reviewed the radiologist's reading. Radiologist Impression: EXAMINATION: XR LUMBOSACRAL SPINE CLINICAL INFORMATION: Pain COMPARISON: CT abdomen and pelvis 10/12/2020 TECHNIQUE: Three views of the lumbosacral spine. FINDINGS: The lumbar vertebral bodies demonstrate normal height. Overall sagittal alignment is maintained. The intervertebral disc heights are normal. Tiny marginal endplate osteophytes at multiple levels The posterior elements appear intact. The paraspinous soft tissues appear unremarkable. Bilateral sacroiliac joints are intact. XR/XR lumbar spine 2-3V IMPRESSION: No radiographic evidence of acute abnormality involving the lumbar spine. Electronically signed by: Ruben Lange MD 09/25/2024 02:03 PM EDT External Record Review External record reviewed: Inpatient record Prescription Management I considered prescription management with: Other (Flexeril, lidocaine patch) Social Determinants Patient?s care significantly limited by Social Determinants of Health including: Other Social Determinant of Health Critical Care Time Critical Care Time Critical Care Time: No Discharge Plan Discharge Clinical Impression: Lumbar strain Patient Disposition: Home, Self-Care Instructions: Back Pain (ED), Lower Back Exercises (ED) Additional Instructions: You were evaluated in the Emergency Department today for your back pain.? Your evaluation did not show signs of medical conditions requiring emergent intervention at this time. Avoid bending, lifting, or twisting. Use ice several times per day for 20 minutes at a time for the next 48 hours and then change to heat. We recommend you take 600mg ibuprofen every 6 hours or tylenol 650mg every 6 hours as needed for pain. If needed, you can alternate these medications so that you take one medication every 3 hours. For example, at noon take ibuprofen, then at 3pm take tylenol, then at 6pm take ibuprofen. Flexeril is a muscle relaxer. Take this at night as it makes you drowsy. Do not drive, drink alcohol, or operate machinery while taking it. Lidoderm patches are numbing patches. Apply to painful areas. Please schedule an appointment for follow-up with your primary care provider this week for further evaluation of your symptoms. Return to the Emergency Department if you experience worsening back pain, difficulty walking, fevers, numbness, tingling, incontinence, or any other concerning symptoms. In the case of an emergency call 911. Prescriptions: New cyclobenzaprine 5 mg tablet 5 mg PO Q8H Qty: 7 0RF lidocaine [Lidoderm] 5 % adhesive patch,medicated 1 patch topical DAILY Qty: 15 0RF Rx Instructions: leave on most painful area for up to 12 hrs No Action magnesium oxide 400 mg (241.3 mg magnesium) tablet 400 mg PO BEDTIME 30 Days Qty: 30 6RF Rx Instructions: may hold for loose stools cholecalciferol (vitamin D3) 25 mcg (1,000 unit) capsule 25 mcg PO DAILY Qty: 30 1RF albuterol sulfate 90 mcg/actuation HFA aerosol inhaler 1 inh inhalation QID PRN (Reason: shortness of breath or wheezing) Qty: 8.5 0RF hydroxyzine HCl 25 mg tablet 25 mg PO BEDTIME Qty: 30 0RF albuterol sulfate 0.63 mg/3 mL solution for nebulization 0.63 mg inhalation QID PRN acetazolamide 125 mg tablet 125 - 250 mg PO TID 30 Days Qty: 180 3RF rizatriptan 10 mg tablet 5 - 10 mg PO Q2H PRN (Reason: migraine headache) 21 Days Qty: 12 3RF Rx Instructions: max 2 tabs per day or 4 tabs per week riboflavin (vitamin B2) 400 mg tablet 400 mg PO DAILY 30 Days Qty: 30 6RF Referrals: Po,Minna Wong MD [Primary Care Provider] - Print Language: Kazakh
[2024-09-25 15:04] LABS: Appearance Urine Clear; Color Urine Yellow; Glucose Urine UA Negative (Negative); Leukocyte Esterase Urine Negative (Negative); Nitrite Urine Negative (Negative); PH 8.5 (5.0-9.0); Urine Blood Negative (Negative); Urine Ketones Trace mg/dL (Negative); Urine Protein Negative (Neg-Trace)
[2024-09-25 15:05] LABS: UPreg QC Valid YES; Urine Pregnancy NEGATIVE (NEGATIVE)
[2024-09-25 15:07] LABS: Bacteria Urine 1+ (None Seen); Hyaline Casts Urine 0-2 /LPF (0-2); RBC Urine 0-2 /HPF (0-2); WBC Urine 0-5 /HPF (0-5)
[2024-09-25 16:31] VITALS: BP 135/67; PULSE 65; RESP 18; TEMP 36.8; O2SAT 98
[2024-09-25] MEDS: Lidocaine 4 % Patch ADH..PATCH 1 PATCH TRANSDERMA (16:57)
[2024-09-25] MEDS: Ketorolac Tromethamine 30 MG/ML VIAL IM (16:58)
[2024-09-25] MEDS: Cyclobenzaprine HCl 10 MG TABLET PO (16:58)
[2024-09-25 17:37] VITALS: BP 135/67; PULSE 65; RESP 18; TEMP 36.8; O2SAT 98
== END 2024-09-25 17:37 | disposition home or self-care (01) ==
PROVIDERS: Physician Assistant; Emergency Provider Emergency Medicine; PCP Internal Medicine
DX: S39.012A Strain of muscle, fascia and tendon of lower back, initial encounter (principal); X58.XXXA Exposure to other specified factors, initial encounter; Y93.9 Activity, unspecified; Y92.9 Unspecified place or not applicable; Y99.9 Unspecified external cause status
CPT/HCPCS: 72100; 81001; 81025; 96372; 99283; 99284; J1885

== ENCOUNTER 2024-12-15 15:41 | Outpatient (AMB) | payer OTHER, SELFPAY ==
[2024-12-15 15:44] VITALS: BP 122/72; PULSE 82; TEMP 36.1; BMI 31.8
--- NOTE | 2024-12-15 15:44 | MHC.PC.OV ---
Vital Signs 12/15/24 15:44 Height 5 ft Weight 163 lb BMI 31.8 BP 122/72 Blood Pressure Location Lt brachial Position Sitting Pulse 82 Pulse Source Pulse Oximeter Temp 96.9 F Temp Source Temporal Artery Scan Oxygen Delivery Method Room Air Intake Visit Reasons: Asthma, medication not working Director Of Planning Required: No Accompanied by: Self / Same As Patient Allergies No Known Allergies Allergy (Verified 12/17/24 07:37) Medication List - Last Reconciled 12/22/24 by Luis Donovan MD acetazolamide 125 - 250 mg (1 - 2 x 125 mg) PO TID 30 days albuterol sulfate 90 mcg/actuation 1 inh inhalation QID PRN albuterol sulfate 0.63 mg inhalation QID PRN cholecalciferol (vitamin D3) 25 mcg PO DAILY cyclobenzaprine 5 mg PO Q8H fluticasone furoate 100 mcg/actuation (Arnuity Ellipta) 1 inh inhalation DAILY hydroxyzine HCl 25 mg PO BEDTIME lidocaine 5% (Lidoderm) 1 patch topical DAILY magnesium oxide 400 mg PO BEDTIME 30 days prednisone 10 mg PO DIRECTED riboflavin (vitamin B2) 400 mg PO DAILY 30 days rizatriptan 5 - 10 mg (0.5 - 1 x 10 mg) PO Q2H PRN 21 days Tobacco use date assessed: 12/15/24 Dental Screening Dental Screen Date: 08/06/24 Did you have a dental visit in the last 12 months?: Yes Did you have a dental problem in the last 6 months where you did not have access to dental care?: No Was dental information given to patient?: Patient has dentist HPI Asthma, medication not working HPI Details Patient is a 31-year-old female with significant past medical history of asthma, chronic headache, stenosis cranial vessels, migraines with aura. She is a patient Dr. Dalton was last seen in the office on 08/06/2024. Patient reports that she has been wheezing and having shortness of breath especially at for a week. This is associated with a dry cough as well. Intermittently she gets chest pain when coughing hardly. The patient denies any other respiratory symptoms. Reports she takes COVID test is regularly for work and they all have been negative. reports wheezing and coughing for over week (worse at night). order arnuity inhaler and prednisone. taper- 3 mo f/u with Mae. for Asthma-pt to follow sooner for any concerns. [facility] Medical History Chronic headaches Cervical muscle strain Asthma No known health problems Surgical History H/O tubal ligation Family History Father No problems noted. Mother Diabetes Thyroid disease High cholesterol High blood pressure Brother Kidney disease, chronic, end stage on dialysis Social History Housing: Apartment Alcohol intake: current Alcohol intake frequency: does not drink Patient Tobacco Use Status: Never used Tobacco e-Cigarette/Vaping Use: Never Used Substance Use Type: Marijuana service: No Current occupational status: employed Cognitive needs: No Hearing needs: No Vision needs: No Female Reproductive History Menstrual Age of Menarche: 13 Questionnaire PHQ-9 Over the last 2 weeks, how often have you been bothered by any of the following problems? 1. Little interest or pleasure in doing things: not at all 2. Feeling down, depressed, or hopeless: not at all 3. Trouble falling or staying asleep, or sleeping too much: nearly every day 4. Feeling tired or having little energy: not at all 5. Poor appetite or overeating: not at all 6. Feeling bad about yourself - or that you are a failure or have let yourself or your family down: not at all 7. Trouble concentrating on things, such as reading the newspaper or watching television: not at all 8. Moving or speaking so slowly that other people could have noticed. Or the opposite - being so fidgety or restless that you have been moving around a lot more than usual: not at all 9. Thoughts that you would be better off or of hurting yourself in some way: not at all Total score: 3 Depression Screening Interpretation: Negative Depression Screening Done: Yes 54672 - PHQ-9 Billing: Yes Source: Developed by Drs. Patrice Lacy, Asuncion Herman, Ha Villa and colleagues, with an educational sophie from [employer]. Thrive Questionnaire Date Thrive assessed: 12/15/24 I am a: Patient What is your living situation today?: I have a steady place to live Within the past 12 months, did the food you bought not last and you didn't have the money to get more?: Never true Within the past 12 months, did you worry whether your food would run out before you got money to buy more?: Never true Do you have trouble paying for medicines?: No Do you have trouble getting transportation to medical appointments?: No Do you have trouble paying your heating and electricity bill?: Yes Do you have trouble taking care of your child, family member or friend?: No Do you have trouble with day-to-day activities such as bathing, preparing meals, shopping, managing finances, etc.?: No Are you currently unemployed and looking for a job?: No Are you interested in more education?: Yes Please select the resources that you would like help with: Food and Utilities Currently or been in a relationship where the following occur: No concerns reported THRIVE Score: 1 AUDIT C Alcohol Use Questionnaire (AUDIT-C) 1. How often do you have a drink containing alcohol?: Monthly or less 2. How many drinks containing alcohol do you have on a typical day when you are drinking?: 1 or 2 3. How often do you have six or more drinks on one occasion?: Less than monthly Total Score: 2 Score Reviewed/Action Taken: Yes BAILEY-7 AMB Questionnaire BAILEY-7 Date BAILEY - 7 assessed: 12/15/24 Feeling nervous, anxious, or on edge: 0 = Not at all Not being able to stop or control worryin = Not at all Worrying too much about different things: 0 = Not at all Trouble relaxin = Not at all Being so restless that it is hard to sit still: 0 = Not at all Becoming easily annoyed or irritable: 0 = Not at all Feeling afraid as if something awful might happen: 0 = Not at all Total BAILEY-7 score (0-4 normal; 5-9 mild; 10-14 moderate; 15-21 severe): 0 Source: Developed by Drs. Patrice Lacy, Asuncion Herman, Ha Villa and colleagues, with an educational sophie from [employer]. BAILEY-7 Assessment Billing BAILEY-7 Assessment Tool: BAILEY-7 Assessment 90833 Review of Systems Const Details: Denies chills, Denies fatigue, Denies fever(s), Denies headache(s) and Denies weakness HEENT Denies change in vision, Denies dizziness, Denies headache(s), Denies hearing loss, Denies nasal congestion, Denies sinus pain, Denies sinus pressure and Denies sore throat Card Reports chest pain with hard cough, Denies lightheadedness Denies other (palpitations) Resp Reports a week history of dry cough, reports intermittent shortness of breath and reports wheezing worse at night GI Denies abdominal pain, Denies melena, Denies hematochezia, Denies change in bowel habits, Denies dyspepsia and Denies nausea Denies hematuria and Denies dysuria Musc Denies abnormal gait, Denies myalgias, Denies arthralgias, Denies numbness and Denies tingling Skin/Breast Denies rash, Denies unusual bruising and Denies wounds Physical exam (Primary Care) Vital Signs: Last Vital Signs Temp 96.9 F 12/15/24 15:44 Pulse 82 12/15/24 15:44 BP 122/72 12/15/24 15:44 Oxygen Delivery Method Room Air 12/15/24 15:44 BMI result Body Mass Index 31.8 Tobacco/Smoking Status: Tobacco use Status Tobacco use date assessed 12/15/24 12/15/24 15:50 Patient Tobacco Use Status Never used Tobacco 12/15/24 15:50 e-Cigarette/Vaping Use Never Used 12/15/24 15:50 PHQ-9: PHQ-9 Score PHQ-9: Total score 3 12/15/24 15:56 Depression Screening Interpretation: Negative Thrive Assessment: Date of Thrive Assessment Date Thrive assessed 12/15/24 12/15/24 15:50 Currently or been in a relationship where the following occur: No concerns reported Const Other: General: no acute distress, well developed, alert and awake Nutritional Appearance: well nourished Orientation/consciousness: patient oriented x3 HENMT Head: Yes normocephalic and Yes atraumatic Ears: hearing grossly normal bilaterally and TM's normal bilaterally General nose exam: Normal external nose present and Normal nares present Mouth: Normal oral and palatal mucosa present and moist mucous membranes Teeth and gingiva: dentition normal Throat: Yes oropharynx normal Eyes Pupils: Equal, round and reactive pupils present and Pupil accommodation reflex normal Neck Neck: Yes normal visual inspection, Yes no lymphadenopathy and Yes trachea midline Thyroid: Thyroid normal Carotids: no bruits Lymphatic: no lymphadenopathy noted Chest Chest palpation & inspection: normal inspection of the chest Resp Effort & Inspection: normal respiratory effort Auscultation: Expiratory wheezes bilaterally throughout Cardio Rate: regular rate Rhythm: regular rhythm Heart sounds: S1 normal heart sound present, S2 normal heart sound present, no gallops, no murmurs and no rubs GI Palpation (GI): Abdomen soft and nontender to palpation, No hepatosplenomegaly Auscultation: normal bowel sounds General: Yes no CVA tenderness Skin General: warm and dry. Normal skin color. Normal skin turgor Lesions: no lesions Neuro General: patient oriented x3, gait normal Cranial nerves: Yes Equal, round and reactive pupils present Cognition (Neuro): normal cognition Gait exam (Neuro): Normal gait present Extrem General: Yes normal to inspection, No edema and No calf tenderness Psych Appearance: grossly normal Affect: normal affect Attitude: cooperative Thought process: Normal thought process present Coding Level of Care Code Est Pt Level 3 (97501) Diagnoses Moderate persistent asthma without complication J45.40 Asthma complication type: uncomplicated Asthma persistence: persistent Asthma severity: moderate Migraine with aura and with status migrainosus, not intractable G43.101 Intractability: not intractable Status migrainosus presence: with status migrainosus Additional Codes BAILEY-7 Assessment Billing - BAILEY-7 Assessment Tool: BAILEY-7 Assessment 02201 ([id number]) PHQ-9 - 84609 - PHQ-9 Billing: Yes ([id number]) Time Spent (min) 25 Assessment & Plan Assessment & Plan (1) Asthma: Code(s): J45.909 - Unspecified asthma, uncomplicated Category: Medical Qualifiers: Asthma complication type: uncomplicated Asthma persistence: persistent Asthma severity: moderate Qualified Code(s): J45.40 - Moderate persistent asthma, uncomplicated Plan: ordered Arnuity Ellipta 100mcg/actuation daily ordered prednisone tapered Patient has a follow up three-month appointment Follow up sooner if symptoms worsen or not resolving (2) Migraine with aura: Code(s): G43.109 - Migraine with aura, not intractable, without status migrainosus Category: Medical Qualifiers: Intractability: not intractable Status migrainosus presence: with status migrainosus Qualified Code(s): G43.101 - Migraine with aura, not intractable, with status migrainosus Plan: Continue magnesium oxide 400 mg at bedtime, riboflavin 400 mg daily and rizatriptan 5-10 mg Q2H PRN Follow up with Neurology as scheduled Plan Follow up in 3 months Medications: New prednisone see taper instructions take 4 tabs x 2 days, 3 tabs for 2 days, 2 tabs for 2x day, 1 tab x 2 days =20 tabs over eight days. 10 mg PO DIRECTED 20 tabs 0RF fluticasone furoate 100 mcg/actuation (Arnuity Ellipta) 1 inh inhalation DAILY 30 ea 3RF
== END 2024-12-15 17:05 | disposition home or self-care (01) ==
PROVIDERS: PCP Internal Medicine; Visit Provider Internal Medicine
DX: J45.40 Moderate persistent asthma, uncomplicated (principal); G43.101 Migraine with aura, not intractable, with status migrainosus

== ENCOUNTER → 2024-12-15 15:41 | Outpatient (BNVA) | payer OTHER, SELFPAY | PROVIDERS: PCP Internal Medicine; Visit Provider Internal Medicine | DX: J45.40 Moderate persistent asthma, uncomplicated (principal); G43.101 Migraine with aura, not intractable, with status migrainosus | CPT/HCPCS: 96127; 99212 ==

== ENCOUNTER 2024-12-17 07:34 | Outpatient (AMB) | payer OTHER, SELFPAY ==
[2024-12-17 07:35] VITALS: BMI 31.2
--- NOTE | 2024-12-17 07:35 | A.OFFVIS_ITS ---
Vital Signs 12/17/24 07:35 Height 5 ft Weight 160 lb BMI 31.2 Intake Visit Reasons: 3 mo follow up Intake Note: patient stated she is doing good and has not received a call to schedule appointment with Vascular. Allergies No Known Allergies Allergy (Verified 12/17/24 07:37) Medication List - Last Reconciled 12/17/24 by QUE Phan acetazolamide 125 - 250 mg (1 - 2 x 125 mg) PO TID 30 days albuterol sulfate 90 mcg/actuation 1 inh inhalation QID PRN albuterol sulfate 0.63 mg inhalation QID PRN cholecalciferol (vitamin D3) 25 mcg PO DAILY cyclobenzaprine 5 mg PO Q8H fluticasone furoate 100 mcg/actuation (Arnuity Ellipta) 1 inh inhalation DAILY hydroxyzine HCl 25 mg PO BEDTIME lidocaine 5% (Lidoderm) 1 patch topical DAILY magnesium oxide 400 mg PO BEDTIME 30 days prednisone 10 mg PO DIRECTED riboflavin (vitamin B2) 400 mg PO DAILY 30 days rizatriptan 5 - 10 mg (0.5 - 1 x 10 mg) PO Q2H PRN 21 days HPI Comments Details: 39-yr-old female presents for f/u of IIH and migraine. Pt states she has not heard from the [facility] neuroendovascular office yet. Patient reports she was recently started on prednisone and a new asthma inhaler due to asthma exacerbation. She has not had follow-up labs done yet, but plans to do them soon. Patient reports that her headaches are overall much better. She denies any interval vision changes She is typically having 2 headache days per week, sometimes 3 if there is more work stress. She states she is compliant with her Acetazolamide, riboflavin and magnesium. States she is tolerating these well. She is taking rizatriptan 2 to 3 times a week with good effect. 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 She had VEP, whcih was normal. Pt was advised to start on Acetazolamide 250mg tid- which she has been consistently taking. She states she is tolerating this well, just notices frequent urination. Here headcahes are much better. She can have pressure sensation in back of neck and occipital region. May hear her pulse in the back of her head- notices mostly when upright. Headaches are not more or less likely in upright versus supine position. She is using the Rizatriptan less than once a week w/ good effect. States her vision is stable with her glasses. We did put in an order for neuroendovascular consult at [facility], however pt does not think she had this appt yet. 05/02/2024, MR/MR orbits face neck wo/w con IMPRESSION: 1. Subtle infiltrative changes with subtle enhancement of the retrobulbar fat suggesting ocular pseudotumor. No definite signal alteration in the optic nerves or chiasm. 2. Increased CSF within the optic nerve sheath heads, with additional findings suggesting idiopathic intracranial hypertension. 3. Similar white matter foci in the supratentorial region, nonspecific but possibly in keeping with demyelination. The pattern is overall nonspecific. Overall no change. No abnormal white matter enhancing foci. 4. 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 5. No intracranial hemorrhage, acute infarction, mass effect, or edema. 04/25/2024, MR/MR head/brain wo/w con IMPRESSION: 1. No evidence of intracranial hemorrhage, acute infarction, mass effect, edema, or pathologic contrast enhancement. 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 2. Moderate subcortical hemispheric deep white matter T2 hyperintense foci, with some pericallosal marginal involvement but no definite callosal or callosal septal involvement. This remains nonspecific but could represent demyelinating disease versus nonspecific microangiopathic changes. No enhancing white matter lesions. Overall degree of T2 hyperintense abnormalities appears unchanged. 3. Suspect idiopathic intracranial hypertension on the basis of partial empty sella, mildly enlarged Meckel's caves, increased CSF in the optic nerve sheath heads, and small transverse sinuses. Opening pressure from prior fluoroscopy guided lumbar puncture 09/14/2023 was 36, abnormal. Previous visit, 03/17/2024: Pt had a recent eye exam d/t she started noticing increased episodes of blurry vision a/w headache, which she thought was d/t needing her glasses prescription to be updated. The eye exam revealed bilateral mild papilledema, with red desaturation test 10/10 OD, 5/10 OS. She states now she may have a headache a few days in a row and then none for a few days. Unsure of exact duration- may last at least 30 min but can last longer. Describes the headache as Bilateral retro-orbital pressure pain a/w blurred vision, photophobia, watery eyes. Once was a/w brief total loss of vision- everything became dark. Denies tinnitus, red eyes, facial weakness. Does not notice if any position helps/worsens. The headaches do come on when just sitting and watching TV. Baseline headcahe characteristics: Prodrome symptoms: None Aura: Sees white spots before headcahe onset x's 10-15 min. Headache: Moderate to Severe, Pressure in usually bilateral occipital or top of head and back of her eyes a/w Photophobia, phonophobia, allodynia, some dizziness/lightheadedness, brain fog, tiredness, watery eyes. Postdrome: Residual tiredness Work-up: 10/12/23, MR/MR cervical and thoracic spine wo/w con IMPRESSION: 1. No evidence of demyelinating disease in the cervical or thoracic spinal cord. 2. Mild multilevel degenerative changes predominantly in the cervical spine without significant spinal canal or neural foraminal narrowing. 09/14/23, LP: Opening CSF pressure measured 36 cm water. CSF studies: Normal. CSF OG bands- absent. 06/27/23, MR/MR head/brain wo/w con IMPRESSION: 1. Partially empty sella which can be seen in the setting ofidiopathic intracranial hypertension. Stenosis of the distal transverse sinuses is better appreciated on prior MRV and CTA. 2. Numerous foci of T2/FLAIR signal abnormality involving the supratentorial white matter which are nonspecific but are compatible with demyelinating disease given patient reported history of multiple sclerosis. 3. 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 06/27/23, MR/MR venography head wo/w conIMPRESSION: No evidence of venous sinus thrombosis. Focal narrowing of the lateral aspects of both transverse venous sinuses, as on recent CT angiography. [facility] Medical History Chronic headaches Cervical muscle strain Asthma No known health problems Surgical History H/O tubal ligation Family History Father No problems noted. Mother Diabetes Thyroid disease High cholesterol High blood pressure Brother Kidney disease, chronic, end stage on dialysis Social History Housing: Apartment Alcohol intake: current Alcohol intake frequency: does not drink Patient Tobacco Use Status: Never used Tobacco e-Cigarette/Vaping Use: Never Used Substance Use Type: Marijuana service: No Current occupational status: employed Cognitive needs: No Hearing needs: No Vision needs: No Female Reproductive History Menstrual Age of Menarche: 13 Physical Exam Vital Signs: BMI result Body Mass Index 31.2 Const General: cooperative and no acute distress Orientation/consciousness: patient oriented x3 Resp Effort & Inspection: normal respiratory effort and able to speak in complete sentences Neuro General: patient oriented x3 Cognition (Neuro): normal cognition Psych Appearance: grossly normal Mental Status: mental status grossly normal Speech and movement: Normal speech and movement present Affect: normal affect Attitude: cooperative Telehealth Telehealth Telehealth Platform: [facility] Location of provider rendering services: practice address Location of patient: address on file Patient Identification confirmed using: Name, : Yes Telehealth method: video Patient verbally consented to treatment: Yes Patient verbally consented to billing insurance company: Yes Patient informed of any privacy concerns related to visit: Yes Minutes spent on Phone/Video with Pt.: 9 Assessment & Plan Assessment & Plan (1) IIH (idiopathic intracranial hypertension): Code(s): G93.2 - Benign intracranial hypertension Category: Medical (2) Stenosis of intracranial vessel: Code(s): I66.9 - Occlusion and stenosis of unspecified cerebral artery Category: Medical (3) Migraine with aura: Code(s): G43.109 - Migraine with aura, not intractable, without status migrainosus Category: Medical Qualifiers: Status migrainosus presence: with status migrainosus Intractability: not intractable Qualified Code(s): G43.101 - Migraine with aura, not intractable, with status migrainosus (4) White matter abnormality on MRI of brain: Code(s): R90.82 - White matter disease, unspecified Category: Medical Plan Previous work-up: 05/02/2024, brain and face/orbits MRI images and reports w/ pt, which showed stable non-specific T2 white matter hyperintensities, partial empty sella, mildly enlarged Meckel's caves, increased CSF in the optic nerve sheath heads, and small transverse sinuses, and subtle infiltrative changes with subtle enhancement of the retrobulbar fat suggesting ocular pseudotumor. 04/16/2024, Bilateral VEP- normal. 06/27/23, Brain MRI w/wo and MRV- Partially empty sella. No evidence of venous sinus thrombosis. 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 10/12/23, MRI cervical and thoracic spine wo/w- No evidence of demyelinating disease, Mild multilevel cervical degenerative changes w/o significant spinal canal or neural foraminal narrowing. 09/14/23, LP results: Normal CSF studies, including absence of OG bands. Opening CSF pressure elevated at 36 cm water. For overall headache management in setting of known supratentorial T2 white matter hyperintensities: BP is normotensive Continue to optimize cardiovascular risk factors through increasing regular low impact physical activity, and optimize diet through increasing fruit/vegetable, whole grain, and lean protein intake. For IIH: Continue Acetazolamide 250mg tid. CBC and CMP as ordered- complete after she completes her current course of prednisone. Will again f/u on request for neuroendovascular consult to assess if focal narrowing of bilateral venous sinuses is contributing to intracranial hypertension. F/u eye exam as scheduled. For acute headache treatment: Rizatriptan prn. Previous acute migraine medication trials: Sumatriptan- not tolerated. Was prescribed Fioricet but never took. Acute migraine medication contraindications: None at this time ? For headache prevention medication: Riboflavin 400mg qam Magnesium 400mg qhs Previous migraine prevention medication trials: None Migraine prevention medication contraindications: None Future considerations: Topiramate. ? F/u w/ review of above and in-clinic in 3 months or sooner prn. Coding Level of Care Code Tele Est Pt Level 4 (43615) Diagnoses IIH (idiopathic intracranial hypertension) G93.2 Stenosis of intracranial vessel I66.9 Migraine with aura and with status migrainosus, not intractable G43.101 Status migrainosus presence: with status migrainosus Intractability: not intractable White matter abnormality on MRI of brain R90.82
--- OUTSIDE RECORDS SUMMARY | 2024-12-17 07:37 | XMS_ITS | Clinical Summary ---
Author Organization [facility] Address [address] [place] [id number] Phone Care Team Providers Care Demolition Hammer Operator Name Role Phone Unavailable Primary Care Provider Unavailabl e Immunizations Name Administration Dates Next Due DTP 01/16/1992, 9,12/09/1987,09/21,02/22/1987 Hep B, ped/adol 11/04/1999,01/28/1997,12/27/1995 Hib (HbOC) 09/28/1988 IPV 01/16/1992 MMR 12/27/1995,09/28/1988 Meningococcal Conj (Menactra) MCV4P 07/02/2007 OPV 09/28/1988,09/21/1987,02/22/1987 Td (adult) (Tenivac), 5 Lf t etanus toxoid, PF, adsorbed 11/04/1999 Tdap 07/02/2007 Family History Relation Name Status Comments Brother Alive Brother: ADD/AD HD, Asthma, Alive and well Father Alive Father: Alive a nd well Mother Alive Mother: Alive a nd well Other Grandmother: Lin dden /[place] under age 55 Sister Alive Sister: Alive a nd well, Elevated Cholesterol, Diabetes Social History Tobacco Use Types Packs/Day Years Used Date Smoking Tobacco: Never Assessed Comments Unknown Sex and Gender Information Value Date Recorded Sex Assigned at Not on file Legal Sex Female 4:35 PM EDT Gender Identity Not on file Sexual Orientation Not on file Plan of Treatment Health Maintenance Due Date Last Done Comments Varicella Vaccines (1 of 2 - 13+ 2-dose series) 1999 Consider Men B Vaccine (1 of 2 - Bexsero 2-dose series) 2002 DTaP,Tdap,and Td Vaccines (7 - Td or Tdap) 07/02/2017 07/02/2007, 11/04/1999, 01/16/1992, Additional history exists Influenza Vaccines (#1) 2024 COVID-19 Vaccine (2023- season) 2024 HIB Vaccines Completed 09/28/1988 IPV Vaccines Completed 01/16/1992, 01/1988, 09/21/1987, Additional history exists MMR Vaccines Completed 12/27/1995, 09/28/1988 Hepatitis B Vaccines Completed 11/04/1999, 01/28/1997, 12/27/1995 Meningococcal Vaccine Aged Out 07/02/2007 No augustine lu eligible based on patient's age to complete this topic HPV Vaccines Aged Out No longer eligi ble based on patient's age to complete this topic Hepatitis A Vaccines Aged Out No long er eligible based on patient's age to complete this topic Men B Vaccine Aged Out No longer elig ible based on patient's age to complete this topic Pneumococcal Vaccine Aged Out No long er eligible based on patient's age to complete this topic
--- OUTSIDE RECORDS SUMMARY | 2024-12-17 07:37 | XMS_ITS | Encounter Summary ---
Author Organization [facility] Address [address] [place] [id number] Phone Care Team Providers Care Storage Battery Tester Name Role Phone Christophe Singh MD Primary Care Provider [phone] Encounter Details Date Type Department Care Team (Late st Contact Info) Description 07/12/2017 Conversion Encounter [facility] [place] [address] [place] [address] Social History Tobacco Use Types Packs/Day Years Used Date Smoking Tobacco: Never Assessed Comments Unknown Sex and Gender Information Value Date Recorded Sex Assigned at Not on file Legal Sex Female 4:35 PM EDT Gender Identity Not on file Sexual Orientation Not on file documented as of this encounter Plan of Treatment Not on file documented as of this encounter Visit Diagnoses Not on filedocumented in this encounter Care Teams Storage Battery Tester Relationship Specialty Start Date End Date Christophe Singh MD [address] [place] [address] PCP - General 07/06/17 05/10/23 documented as of this encounter
== END 2024-12-17 10:26 | disposition home or self-care (01) ==
PROVIDERS: PCP Internal Medicine; Visit Provider Nurse Practitioner Family
DX: G93.2 Benign intracranial hypertension (principal); I66.9 Occlusion and stenosis of unspecified cerebral artery; G43.101 Migraine with aura, not intractable, with status migrainosus; R90.82 White matter disease, unspecified
CPT/HCPCS: 99214

== ENCOUNTER → 2024-12-17 07:34 | Outpatient (BNVA) | payer OTHER, SELFPAY | PROVIDERS: PCP Internal Medicine; Visit Provider Nurse Practitioner Family ==

== ENCOUNTER 2025-01-20 02:49 | Emergency (ER) | payer OTHER, SELFPAY ==
[2025-01-20 02:56] VITALS: BP 121/77; PULSE 63; RESP 14; TEMP 36.5; O2SAT 99; BMI 30.5
--- OUTSIDE RECORDS SUMMARY | 2025-01-20 03:06 | XMS_ITS | Clinical Summary ---
Author Organization [facility] Address [address] [place] [phone] Phone Care Team Providers Care Wash Helper Name Role Phone Unavailable Primary Care Provider Unavailabl e Immunizations Immunization Administration Dates Next Due DTP 01/16/1992, 9,12/09/1987,09/21,02/22/1987 [...] a nd well Other Grandmother: Lin dden /[place] under age 55 Sister Alive Sister: Alive [...]
--- OUTSIDE RECORDS SUMMARY | 2025-01-20 03:06 | XMS_ITS | Encounter Summary ---
Author Organization [facility] Address [address] [place] [phone] Phone Care Team Providers Care Team Coordinator Name Role Phone Christophe Singh MD Primary Care Provider [phone] Encounter Details Date Type Department Care Team (Late st Contact Info) Description 07/12/2017 Conversion Encounter [facility] [place] [address] [place] [address] Social History Tobacco Use Types Packs/Day Years [...] on filedocumented in this encounter Care Teams Team Coordinator Relationship Specialty Start Date End Date Christophe Singh MD [address] [place] [address] PCP - General 07/06/17 05/10/23 documented as of this encounter
[2025-01-20 03:14] LABS: MANUAL DIFF FLAG NO
[2025-01-20 03:15] LABS: Basophils Absolute Auto 0.1 X10*3/uL (0.0-0.2); Basophils Percent Auto 0.6 % (0-2); Eosinophils Absolute Auto 0.2 X10*3/uL (0.0-0.4); Eosinophils Percent Auto 2.4 % (0-4); Hematocrit 37.1 % (37.0-47.0); Hemoglobin 12.7 g/dl (12.0-16.0); Imm Gran Abs Auto 0.02 X10*3/uL (0.00-0.03); Imm Gran Pct Auto 0.3 % (0.0-0.4); Lymphocytes Absolute Auto 1.7 X10*3/uL (1.2-4.9); Lymphocytes Percent Auto 21.3 % (20-40); Mean Corpuscular HGB Conc 34.2 g/dl (31.0-35.0); Mean Corpuscular Hemoglobin 31.2 pg (27.0-33.0); Mean Corpuscular Volume 91.2 fL (80.0-98.0); Mean Platelet Volume 10.5 fL (9.4-12.3); Monocytes Absolute Auto 0.6 X10*3/uL (0.1-1.2); Monocytes Percent Auto 7.2 % (2-11); Neutrophils Absolute Auto 5.4 x10*3/uL (2.0-8.3); Neutrophils Percent Auto 68.2 % (45-73); Platelet Count 183 X10*3/uL (160-400); Red Blood Count 4.07 X10*6/uL (4.20-5.50); White Blood Count 7.9 X10*3/uL (4.8-10.8)
[2025-01-20 03:21] LABS: INTERNATIONAL NORM RATIO 0.9 (0.9-1.1); Prothrombin Time 10.7 SEC (10.9-12.4)
[2025-01-20 03:36] LABS: Alanine Aminotransferase 11 U/L (0-31); Albumin Level 3.8 g/dL (3.5-5.0); Anion Gap 12 (12-20); Aspartate Amino Transferase 20 U/L (5-31); Bilirubin Total 0.4 mg/dL (0.0-1.0); Blood Urea Nitrogen 13 mg/dL (9-16); Calcium 8.8 mg/dL (8.4-10.2); Carbon Dioxide 22 mmol/L (22-29); Chloride 111 mmol/L (96-108); Creatinine Clr Calc Pharmacy 88.1; Estimated Glomerular Filt Rate > 60; Glucose Random 92 mg/dL (60-115); Potassium 4.2 mmol/L (3.3-5.1); Sodium 141 mmol/L (135-145); Total Protein 7.2 g/dL (6.5-8.0)
[2025-01-20 03:38] LABS: Alkaline Phosphatase 59 U/L (39-117)
--- NOTE | 2025-01-20 04:59 | ED_ITS ---
HPI - General Adult General Chief complaint: General Medical Stated complaint: gen med Time Seen by Provider: 01/20/25 04:59 History of Present Illness ED Provider: Shashank SHARMA narrative: The patient is a 39-year-old female who has been on clopidogrel 75 mg daily and a baby aspirin daily for almost a month. On January 02 the patient had what I believe were intracranial stents placed in her brain to help relieve symptoms of idiopathic intracranial hypertension. Over the past few weeks the patient has developed a lot of bruises on both of her legs which she finds very uncomfortable. She also has a sense of tingling and numbness in her feet. She says that she has not had any injuries that might account for all the bruises on her legs. Related Data Home Medications ?Medication ?Instructions ?Recorded ?Confirmed albuterol sulfate 0.63 mg/3 mL 0.63 mg inhalation QID PRN 12/11/22 12/22/24 solution for nebulization Previous Rx's ?Medication ?Instructions ?Recorded albuterol sulfate 90 mcg/actuation 1 inh inhalation QID PRN shortness 10/30/21 aerosol inhaler of breath or wheezing #8.5 grams magnesium oxide 400 mg (241.3 mg 400 mg PO BEDTIME 30 days #30 tabs 05/23/24 magnesium) tablet cholecalciferol (vitamin D3) 25 25 mcg PO DAILY #30 caps 08/11/24 mcg (1,000 unit) capsule acetazolamide 125 mg tablet 125 - 250 mg (1 - 2 x 125 mg) PO 09/15/24 TID 30 days #180 tabs riboflavin (vitamin B2) 400 mg 400 mg PO DAILY 30 days #30 tabs 09/15/24 tablet rizatriptan 10 mg tablet 5 - 10 mg (0.5 - 1 x 10 mg) PO Q2H 09/15/24 PRN migraine headache 21 days #12 tabs cyclobenzaprine 5 mg tablet 5 mg PO Q8H #7 tabs 09/25/24 lidocaine 5 % topical patch 1 patch topical DAILY #15 ea 09/25/24 (Lidoderm) fluticasone furoate 100 1 inh inhalation DAILY #30 ea 12/15/24 mcg/actuation blister powder for inhalation (Arnuity Ellipta) prednisone 10 mg tablet 10 mg PO DIRECTED #20 tabs 12/15/24 hydroxyzine HCl 25 mg tablet 25 mg PO BEDTIME #30 tabs 01/05/25 gabapentin 100 mg capsule 100 mg PO BID #60 caps 01/20/25 Allergies Allergy/AdvReac Type Severity Reaction Status Date / Time No Known Allergies Allergy Verified 01/20/25 02:59 Review of Systems 2 Review of Systems: Yes all other systems are reviewed and are negative FOR[facility]LY [facility] Past Medical History Medical History Chronic headaches Cervical muscle strain Asthma No known health problems Surgical History H/O tubal ligation Family History Family History Father No problems noted. Mother Diabetes Thyroid disease High cholesterol High blood pressure Brother Kidney disease, chronic, end stage on dialysis Social History Social History Housing: Apartment Alcohol intake: current Alcohol intake frequency: does not drink Patient Tobacco Use Status: Never used Tobacco e-Cigarette/Vaping Use: Never Used Substance Use Type: Marijuana Advance Directives: No Advance Directives Information Provided: Yes Do you have a plan to hurt others: No Plan service: No Current occupational status: employed Cognitive needs: No Hearing needs: No Vision needs: No Physical Exam ED Vital Signs: Vital Signs - 24 hr 01/20/25 02:56 01/20/25 05:16 01/20/25 05:36 Temperature 97.7 F 98.0 F 98.0 F Pulse Rate 63 57 57 Respiratory Rate 14 16 16 Blood Pressure 121/77 113/51 L 113/51 L Pulse Oximetry 99 100 100 Oxygen Delivery Method Room Air Room Air Room Air BMI result Body Mass Index 30.5 Const Other: The patient is a 39-year-old woman. She is awake and alert. She does not appear toxic or in distress. She does not seem obviously acutely ill in any way. HENMT Other: Face is symmetrical. Mucous membranes moist. No abnormalities to the skin of the face or in mucosa of the mouth. Eyes Other: Conjunctivae are clear, extraocular movements intact. Neck Other: No neck swelling. Moving the neck easily. Resp Effort & Inspection: normal respiratory effort Auscultation: clear to auscultation bilaterally Cardio Rate: regular rate Rhythm: regular rhythm Heart sounds: S1 normal heart sound present and S2 normal heart sound present Skin Other: The patient has a lot of bruises to the legs bilaterally. The bruises seem primarily confined to the legs. No other significant skin changes. Neuro Other: The patient is awake and alert with a normal mental status. Demeanor is nontoxic. Mental status is normal. Cranial nerves are grossly intact. She moves all extremities normally and appropriately. Gait is normal Extrem Other: the patient has multiple bruises to the legs but no generalized swelling or edema. No calf asymmetry. Medications Administered Discontinued Medications Generic Name Dose Route Start Last Admin Trade Name Freq PRN Reason Stop Dose Admin Acetaminophen 975 mg 01/20/25 05:17 01/20/25 05:21 Acetaminophen 325 Mg Tablet PO 01/20/25 05:18 975 mg ONCE ONE Administration Gabapentin 100 mg 01/20/25 05:17 01/20/25 05:21 Gabapentin 100 Mg Capsule PO 01/20/25 05:18 100 mg ONCE ONE Administration Medical Decision Making Medical Decision Making [facility] Narrative: The patient is a 39-year-old female with a history of idiopathic intracranial hypertension who apparently had what I believe was stenting of intracranial blood vessels at [facility] a few weeks ago. She has been on clopidogrel 75 mg daily and aspirin 81 mg daily because of the stenting. She has developed a lot of spontaneous bruising to the lower extremities. Presumably this spontaneous bruising is related to the use of clopidogrel and aspirin. She denies any injuries. She does not have other symptoms of illness and she does not appear ill otherwise. I believe that since she has had recent stenting that she has a obliged to continue these medications. her CBC is unremarkable. Her platelet count is normal. I do not see any indication for acute intervention of any kind at the moment and I also do not see any obvious advice for this person regarding her spontaneous bruising. She was reassured that there does not seem to be anything alarming on her blood testing or with her overall condition generally. I think she will need to follow up with the regular providers to discuss this bruising. I think she is a appropriate for discharge and referral to her outpatient providers. Lab Data 01/20/25 03:10 01/20/25 03:10 Labs: Lab Results 01/20/25 Range/Units 03:10 WBC 7.9 (4.8-10.8) X10*3/uL RBC 4.07 L (4.20-5.50) X10*6/uL Hgb 12.7 (12.0-16.0) g/dl Hct 37.1 (37.0-47.0) % MCV 91.2 (80.0-98.0) fL MCH 31.2 (27.0-33.0) pg MCHC 34.2 (31.0-35.0) g/dl RDW 14.0 (11.0-16.0) % Plt Count 183 (160-400) X10*3/uL MPV 10.5 (9.4-12.3) fL Immature Gran % (Auto) 0.3 (0.0-0.4) % Neut % (Auto) 68.2 (45-73) % Lymph % (Auto) 21.3 (20-40) % [place] % (Auto) 7.2 (2-11) % Eos % (Auto) 2.4 (0-4) % Baso % (Auto) 0.6 (0-2) % Lymph # (Auto) 1.7 (1.2-4.9) X10*3/uL [place] # (Auto) 0.6 (0.1-1.2) X10*3/uL Eos # (Auto) 0.2 (0.0-0.4) X10*3/uL Baso # (Auto) 0.1 (0.0-0.2) X10*3/uL Abs Immat Gran (auto) 0.02 (0.00-0.03) X10*3/uL Absolute Neuts (auto) 5.4 (2.0-8.3) x10*3/uL Absolute Nucleated RBC 0.000 (0.0-0.012) X10*3/uL Nucleated RBC % (auto) 0.0 (0.0-0.2) /100WBC PT 10.7 L (10.9-12.4) SEC INR 0.9 (0.9-1.1) Sodium 141 (135-145) mmol/L Potassium 4.2 (3.3-5.1) mmol/L Chloride 111 H (96-108) mmol/L Carbon Dioxide 22 (22-29) mmol/L Anion Gap 12 (12-20) BUN 13 (9-16) mg/dL Creatinine 0.76 (0.5-1.4) mg/dL Estim Creat Clear Calc 88.1 Estimated GFR > 60 Random Glucose 92 (60-115) mg/dL Calcium 8.8 D (8.4-10.2) mg/dL Total Bilirubin 0.4 (0.0-1.0) mg/dL AST 20 (5-31) U/L ALT 11 (0-31) U/L Alkaline Phosphatase 59 (39-117) U/L Total Protein 7.2 (6.5-8.0) g/dL Albumin 3.8 (3.5-5.0) g/dL Discharge Plan Discharge Clinical Impression: Abnormal bruising Patient Disposition: Home, Self-Care Additional Instructions: You have a lot of bruising on your legs. I believe this is in part related to the medications you are taking, the clopidogrel (Plavix) and the aspirin. These medications can predispose you to easy bruising. Unfortunately, since you recently received the stents in the blood vessels of your brain I do not think you can stop taking these medications. Please make sure that you do everything you can to avoid any mild injuries which might result in bruising. For pain management you can take 2 extra-strength acetaminophen (Tylenol) together and do this up to 3 times a day. I have sent a prescription for medication called gabapentin which may help relieve pain. You may take this up to 2 times a day. Please contact your primary care doctor for a prompt follow up appointment to discuss this problem further. Please also contact the doctor who did the procedure and let them know about your experience so far to see if they have any recommendations. Gabapentin is a medication whose dosing can be increased. Please discuss possibly increasing this dosing with your primary care doctor. Return to the emergency room if you feel significantly worse. Prescriptions: New gabapentin 100 mg capsule 100 mg PO BID Qty: 60 0RF No Action magnesium oxide 400 mg (241.3 mg magnesium) tablet 400 mg PO BEDTIME 30 Days Qty: 30 6RF Rx Instructions: may hold for loose stools cholecalciferol (vitamin D3) 25 mcg (1,000 unit) capsule 25 mcg PO DAILY Qty: 30 1RF hydroxyzine HCl 25 mg tablet 25 mg PO BEDTIME Qty: 30 0RF albuterol sulfate 90 mcg/actuation HFA aerosol inhaler 1 inh inhalation QID PRN (Reason: shortness of breath or wheezing) Qty: 8.5 0RF cyclobenzaprine 5 mg tablet 5 mg PO Q8H Qty: 7 0RF lidocaine [Lidoderm] 5 % adhesive patch,medicated 1 patch topical DAILY Qty: 15 0RF Rx Instructions: leave on most painful area for up to 12 hrs albuterol sulfate 0.63 mg/3 mL solution for nebulization 0.63 mg inhalation QID PRN prednisone 10 mg tablet 10 mg PO DIRECTED Qty: 20 0RF Rx Instructions: see taper instructions take 4 tabs x 2 days, 3 tabs for 2 days, 2 tabs for 2x day, 1 tab x 2 days =20 tabs over eight days. Arnuity Ellipta 100 mcg/actuation blister with device 1 inh inhalation DAILY Qty: 30 3RF acetazolamide 125 mg tablet 125 - 250 mg PO TID 30 Days Qty: 180 3RF rizatriptan 10 mg tablet 5 - 10 mg PO Q2H PRN (Reason: migraine headache) 21 Days Qty: 12 3RF Rx Instructions: max 2 tabs per day or 4 tabs per week riboflavin (vitamin B2) 400 mg tablet 400 mg PO DAILY 30 Days Qty: 30 6RF Referrals: Po,Minna Wong MD [Primary Care Provider] - (Significant bruising after starting clopidogrel and baby aspirin) Interventions: ED Discharge Assessment Last Done: 01/20/25 05:36 Discharge Date/Time: 01/20/25 05:42 Print Language: Estonian
[2025-01-20 05:16] VITALS: BP 113/51; PULSE 57; RESP 16; TEMP 36.7; O2SAT 100
[2025-01-20] MEDS: Gabapentin 100 MG CAPSULE PO (05:21)
[2025-01-20] MEDS: Acetaminophen 325 MG TABLET 975 MG PO (05:21)
--- NOTE | 2025-01-20 05:25 | PC.NURSE ---
Pt a&ox4, no signs of distress. Pt reports 6/10 pain Pt medicated per mar Pts family at bedside
[2025-01-20 05:36] VITALS: BP 113/51; PULSE 57; RESP 16; TEMP 36.7; O2SAT 100
== END 2025-01-20 05:42 | disposition home or self-care (01) ==
PROVIDERS: Emergency Provider Emergency Medicine; PCP Internal Medicine
DX: R23.3 Spontaneous ecchymoses (principal); R20.0 Anesthesia of skin; Z79.899 Other long term (current) drug therapy
CPT/HCPCS: 36415; 80053; 85025; 85610; 99283; 99284

== ENCOUNTER → 2025-09-01 14:36 | Outpatient (BNVA) | payer SELFPAY | PROVIDERS: PCP Internal Medicine; Visit Provider Registered Nurse | DX: Z02.1 Encounter for pre-employment examination (principal); R76.11 Nonspecific reaction to tuberculin skin test without active tuberculosis ==

== ENCOUNTER 2025-09-02 07:48 | Outpatient (AMB) | payer OTHER, SELFPAY ==
--- OUTSIDE RECORDS SUMMARY | 2025-09-02 07:51 | XMS_ITS | Clinical Summary ---
Author Organization [facility] Address [address] [place] [id number] Phone Care Team Providers Care Digital Media Director Name Role Phone Unavailable Primary Care Provider [...] a nd well Other Grandmother: Lin dden /[place] under age 55 Sister Alive Sister: Alive [...] of 2 - 13+ 2-dose series) 1999 HPV Vaccines (1 - 3-dose SCDM series) 2013 DTaP,Tdap,and Td Vaccines (7 - Td or Tdap) 07/02/2017 07/02/2007, 11/04/1999, 01/16/1992, Additional history exists Influenza Vaccines (#1) 2025 COVID-19 Vaccine (2024- season) 2025 HIB Vaccines Completed 09/28/1988 IPV Vaccines Completed [...]
--- OUTSIDE RECORDS SUMMARY | 2025-09-02 07:51 | XMS_ITS | Encounter Summary ---
Author Organization [facility] Address [address] [place] [id number] Phone Care Team Providers Care Order Fulfillment Specialist Name Role Phone Christophe Singh MD Primary Care Provider [phone] Encounter Details Date Type Department Care Team (Late st Contact Info) Description 07/12/2017 Conversion Encounter [facility] [place] [place] [address] Social History Tobacco Use Types Packs/Day Years [...] on filedocumented in this encounter Care Teams Order Fulfillment Specialist Relationship Specialty Start Date End Date Christophe Singh MD [address] [place] [address] PCP - General 07/06/17 05/10/23 documented as of this encounter
[2025-09-02 08:02] VITALS: BP 110/80; PULSE 64; O2SAT 99; BMI 31.4
--- NOTE | 2025-09-02 08:02 | A.OFFVIS_ITS ---
Vital Signs 09/02/25 08:02 Height 5 ft Weight 161 lb BMI 31.4 BP 110/80 Blood Pressure Location Rt brachial Position Sitting Pulse 64 Pulse Source Pulse Oximeter Pulse Oximetry (%) 99 Oxygen Delivery Method Room Air Intake Visit Reasons: follow up Sports Analyst Required: No Accompanied by: Self / Same As Patient Allergies No Known Allergies Allergy (Verified 09/02/25 08:09) HPI Comments Details: 39-yr-old female presents for f/u of IIH and migraine. She underwent venous stent placement to the right transverse/sigmoid venous sinus stent placement without complication, in early December [address] Glez, neuroendovascular surgery at [facility]. After the procedure, she was started on dual antiplatelet therapy, aspirin and Plavix x6 months, at which point she could stop the Plavix. However, the patient states she stopped taking these consistently about 4-5 months postop due to significant visible bruising. She states she takes these at times now. She states she has continued to be compliant with riboflavin, magnesium, and acetazolamide. She wonders when she will be scheduled for the follow-up head CT venogram. Following the venous stent placement, she reports resolution of tinnitus and the severe, pressure-type headache in her eyes, and her vision has improved to the point where she received glasses with a lower prescription. She may have a regular migraine at times, but states she has only needed to take her rizatriptan twice since she had the venous stent placement. 12/17/2024, HPI: Pt states she has not heard from the [facility] neuroendovascular office yet. Patient reports she was recently started on prednisone and a new asthma inhaler due to asthma exacerbation. She has not had follow-up labs done yet, but plans to do them soon. Patient reports that her headaches are overall much better. She denies any interval vision changes She is typically having 2 headache days per week, sometimes 3 if there is more work stress. She states she is compliant with her Acetazolamide, riboflavin and magnesium. States she is tolerating these well. She is taking rizatriptan 2 to 3 times a week with good effect. 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 She had VEP, which was normal. Pt was advised to start on Acetazolamide 250mg tid- which she has been consistently taking. She states she is tolerating this well, just notices frequent urination. Here headaches are much better. She can have pressure sensation in back of neck and occipital region. May hear her pulse in the back of her head- notices mostly when upright. Headaches are not more or less likely in upright versus supine position. She is using the Rizatriptan less than once a week w/ good effect. States her vision is stable with her glasses. We did put in an order for neuroendovascular consult at [facility], however pt does not think she had this appt yet. 03/17/2024 HPI: Pt had a recent eye exam d/t she started noticing increased episodes of blurry vision a/w headache, which she thought was d/t needing her glasses prescription to be updated. The eye exam revealed bilateral mild papilledema, with red desaturation test 10/10 OD, 5/10 OS. She states now she may have a headache a few days in a row and then none for a few days. Unsure of exact duration- may last at least 30 min but can last longer. Describes the headache as Bilateral retro-orbital pressure pain a/w blurred vision, photophobia, watery eyes. Once was a/w brief total loss of vision- everything became dark. Denies tinnitus, red eyes, facial weakness. Does not notice if any position helps/worsens. The headaches do come on when just sitting and watching TV. Baseline headcahe characteristics: Prodrome symptoms: None Aura: Sees white spots before headcahe onset x's 10-15 min. Headache: Moderate to Severe, Pressure in usually bilateral occipital or top of head and back of her eyes a/w Photophobia, phonophobia, allodynia, some dizziness/lightheadedness, brain fog, tiredness, watery eyes. Postdrome: Residual tiredness Previous workup: 05/02/2024, MR/MR orbits face neck wo/w con IMPRESSION: 1. Subtle infiltrative changes with subtle enhancement of the retrobulbar fat suggesting ocular pseudotumor. No definite signal alteration in the optic nerves or chiasm. 2. Increased CSF within the optic nerve sheath heads, with additional findings suggesting idiopathic intracranial hypertension. 3. Similar white matter foci in the supratentorial region, nonspecific but possibly in keeping with demyelination. The pattern is overall nonspecific. Overall no change. No abnormal white matter enhancing foci. 4. 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 5. No intracranial hemorrhage, acute infarction, mass effect, or edema. 04/25/2024, MR/MR head/brain wo/w con IMPRESSION: 1. No evidence of intracranial hemorrhage, acute infarction, mass effect, edema, or pathologic contrast enhancement. 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 2. Moderate subcortical hemispheric deep white matter T2 hyperintense foci, with some pericallosal marginal involvement but no definite callosal or callosal septal involvement. This remains nonspecific but could represent demyelinating disease versus nonspecific microangiopathic changes. No enhancing white matter lesions. Overall degree of T2 hyperintense abnormalities appears unchanged. 3. Suspect idiopathic intracranial hypertension on the basis of partial empty sella, mildly enlarged Meckel's caves, increased CSF in the optic nerve sheath heads, and small transverse sinuses. Opening pressure from prior fluoroscopy guided lumbar puncture 09/14/2023 was 36, abnormal. 10/12/23, MR/MR cervical and thoracic spine wo/w con IMPRESSION: 1. No evidence of demyelinating disease in the cervical or thoracic spinal cord. 2. Mild multilevel degenerative changes predominantly in the cervical spine without significant spinal canal or neural foraminal narrowing. 09/14/23, LP: Opening CSF pressure measured 36 cm water. CSF studies: Normal. CSF OG bands- absent. 06/27/23, MR/MR head/brain wo/w con IMPRESSION: 1. Partially empty sella which can be seen in the setting ofidiopathic intracranial hypertension. Stenosis of the distal transverse sinuses is better appreciated on prior MRV and CTA. 2. Numerous foci of T2/FLAIR signal abnormality involving the supratentorial white matter which are nonspecific but are compatible with demyelinating disease given patient reported history of multiple sclerosis. 3. 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 06/27/23, MR/MR venography head wo/w conIMPRESSION: No evidence of venous sinus thrombosis. Focal narrowing of the lateral aspects of both transverse venous sinuses, as on recent CT angiography. [facility] Medical History Chronic headaches Cervical muscle strain Asthma No known health problems Surgical History H/O tubal ligation Family History Father No problems noted. Mother Diabetes Thyroid disease High cholesterol High blood pressure Brother Kidney disease, chronic, end stage on dialysis Social History Housing: Apartment Alcohol intake: current Alcohol intake frequency: does not drink Patient Tobacco Use Status: Never used Tobacco e-Cigarette/Vaping Use: Never Used Substance Use Type: Marijuana service: No Current occupational status: employed Cognitive needs: No Hearing needs: No Vision needs: No Female Reproductive History Menstrual Age of Menarche: 13 Physical Exam Vital Signs: Last Vital Signs Pulse 64 09/02/25 08:02 BP 110/80 09/02/25 08:02 Pulse Ox 99 09/02/25 08:02 Oxygen Delivery Method Room Air 09/02/25 08:02 BMI result Body Mass Index 31.4 Const General: cooperative and no acute distress Orientation/consciousness: patient oriented x3 Resp Effort & Inspection: normal respiratory effort and able to speak in complete sentences Neuro General: patient oriented x3 Cranial nerves: Yes CN's II-XII intact bilaterally Cognition (Neuro): normal cognition Gait exam (Neuro): Normal gait present Motor exam (neuro): 5/5 motor strength present throughout Psych Appearance: grossly normal Mental Status: mental status grossly normal Speech and movement: Normal speech and movement present Affect: normal affect Attitude: cooperative Telehealth Telehealth Telehealth Platform: [facility] Location of provider rendering services: practice address Location of patient: address on file Patient Identification confirmed using: Name, : Yes Telehealth method: video Patient verbally consented to treatment: Yes Patient verbally consented to billing insurance company: Yes Patient informed of any privacy concerns related to visit: Yes Minutes spent on Phone/Video with Pt.: 9 Assessment & Plan Assessment & Plan (1) IIH (idiopathic intracranial hypertension): Code(s): G93.2 - Benign intracranial hypertension Category: Medical (2) Stenosis of intracranial vessel: Code(s): I66.9 - Occlusion and stenosis of unspecified cerebral artery Category: Medical (3) Migraine with aura: Code(s): G43.109 - Migraine with aura, not intractable, without status migrainosus Category: Medical Qualifiers: Intractability: not intractable Status migrainosus presence: with status migrainosus Qualified Code(s): G43.101 - Migraine with aura, not intractable, with status migrainosus (4) White matter abnormality on MRI of brain: Code(s): R90.82 - White matter disease, unspecified Category: Medical Plan For IIH status post venous stent placement to the right transverse/sigmoid sinus (December 2024: Continue Acetazolamide 250mg tid. Resume aspirin 81 mg daily at bedtime. She may continue to hold Plavix. Check CBC and CMP today We will reach out to Dr. Glez's office, neuroendovascular surgery at [facility], to determine if we should or they will schedule follow-up CT head venogram Follow-up eye exam as scheduled. For acute headache treatment: Rizatriptan prn. Previous acute migraine medication trials: Sumatriptan- not tolerated. Was prescribed Fioricet but never took. Acute migraine medication contraindications: None at this time ? For headache prevention medication: Riboflavin 400mg qam Magnesium 400mg qhs Previous migraine prevention medication trials: None Migraine prevention medication contraindications: None Future considerations: Topiramate. ? F/u w/ review of above and in-clinic in 6 months or sooner prn. Orders: Orders Comprehensive [place]. Panel Fast Today G89.29 - Other chronic pain, G93.2 - Benign intracranial hypertension, R51.9 - Headache, unspecified Complete Blood Count Auto Diff Today G89.29 - Other chronic pain, G93.2 - Benign intracranial hypertension, R51.9 - Headache, unspecified Medications: New aspirin 81 mg PO BEDTIME 90 tabs 3RF 90 days Refilled acetazolamide 125 - 250 mg (1 - 2 x 125 mg) PO TID 180 tabs 3RF 30 days rizatriptan max 2 tabs per day or 4 tabs per week 5 - 10 mg (0.5 - 1 x 10 mg) PO Q2H PRN 12 tabs 6RF migraine headache 21 days magnesium oxide may hold for loose stools 400 mg PO BEDTIME 30 tabs 6RF 30 days riboflavin (vitamin B2) 400 mg PO DAILY 30 tabs 6RF 30 days Discontinued cyclobenzaprine Discontinued Reason: Patient Completed Course 5 mg PO Q8H 7 tabs 0RF Coding Level of Care Code Est Pt Level 4 (70761) Diagnoses IIH (idiopathic intracranial hypertension) G93.2 Stenosis of intracranial vessel I66.9 Migraine with aura and with status migrainosus, not intractable G43.101 Intractability: not intractable Status migrainosus presence: with status migrainosus White matter abnormality on MRI of brain R90.82
== END 2025-09-02 08:41 | disposition home or self-care (01) ==
LOC: HO.HSMS 07:49
PROVIDERS: PCP Internal Medicine; Visit Provider Nurse Practitioner Family
DX: G93.2 Benign intracranial hypertension (principal); I66.9 Occlusion and stenosis of unspecified cerebral artery; G43.101 Migraine with aura, not intractable, with status migrainosus; R90.82 White matter disease, unspecified
CPT/HCPCS: 99214

== ENCOUNTER 2025-09-02 07:48 | Outpatient (REF) | payer OTHER, SELFPAY ==
[2025-09-02 13:25] LABS: MANUAL DIFF FLAG NO
[2025-09-02 13:40] LABS: Hematocrit 40.8 % (37.0-47.0); Hemoglobin 13.8 g/dl (12.0-16.0); Imm Gran Abs Auto 0.02 X10*3/uL (0.00-0.03); Imm Gran Pct Auto 0.3 % (0.0-0.4); Lymphocytes Absolute Auto 2.2 X10*3/uL (1.2-4.9); Mean Corpuscular HGB Conc 33.8 g/dl (31.0-35.0); Mean Corpuscular Hemoglobin 31.8 pg (27.0-33.0); Mean Corpuscular Volume 94.0 fL (80.0-98.0); NRBC Abs Auto 0.000 X10*3/uL (0.0-0.012); NRBC Pct Auto 0.0 /100WBC (0.0-0.2); Platelet Count 194 X10*3/uL (160-400); Red Blood Count 4.34 X10*6/uL (4.20-5.50); White Blood Count 7.2 X10*3/uL (4.8-10.8)
[2025-09-02 13:57] LABS: Alanine Aminotransferase 13 U/L (0-31); Albumin Level 4.2 g/dL (3.5-5.0); Alkaline Phosphatase 51 U/L (39-117); Anion Gap 10 (12-20); Aspartate Amino Transferase 18 U/L (5-31); Blood Urea Nitrogen 12 mg/dL (9-16); Calcium 9.0 mg/dL (8.4-10.2); Carbon Dioxide 26 mmol/L (22-29); Chloride 108 mmol/L (96-108); Estimated Glomerular Filt Rate > 60; Potassium 4.5 mmol/L (3.3-5.1); Sodium 139 mmol/L (135-145); Total Protein 7.1 g/dL (6.5-8.0)
== END 2025-09-02 07:49 | disposition home or self-care (01) ==
LOC: HO.HKASLDS 07:48
PROVIDERS: PCP Internal Medicine; Visit Provider Nurse Practitioner Family
DX: G93.2 Benign intracranial hypertension (principal); R51.9 Headache, unspecified; G89.29 Other chronic pain
CPT/HCPCS: 36415; 80053; 85025; 99212